=== PATIENT | male | born 1930 | race Caucasian/White ===

== ENCOUNTER 2016-12-28 10:06 | Inpatient (IN) | payer MEDICARE, OTHER ==
[~2016-12-28] VITALS: Ht 160 cm; Wt 63.5 kg
[~2016-12-28 10:06] MED LIST: ACET-915 PO; ALBU8.5H5 IH; CLOP75TA4 PO; DOCU-144 PO; FOLI-49 PO; MAGN400O4 PO; METO50TA16 PO; MIRT30TA PO; MULT1TAB13 PO; NITR0.4T6 SL; PANT20TA2 PO; TIOT18CA IH; VITA1CAP38 PO
[2016-12-28] MEDS ORDERED: SOD CHLORIDE 0.9% 1,000 ML IV STA ×2 (10:07)
[2016-12-28 10:08] VITALS: Ht 160 cm; Wt 63.5 kg
[2016-12-28] MEDS ORDERED: AZTREONAM 1 GM/NS (PMX) 50 ML IVPB ONE (10:30)
[2016-12-28] MEDS ORDERED: VANCOMYCIN 1 GM (PMX) 250 ML IVPB ONE (10:30)
[2016-12-28] MEDS ORDERED: ONDANSETRON 4 MG INJ IV PRN (11:00)
[2016-12-28] MEDS ORDERED: ACETAMINOPHEN 325 MG TAB PO PRN (11:00)
[2016-12-28 11:10] LABS: ADD SCAN DIFF NO
--- NOTE | 2016-12-28 11:18 | RADRPT ---
PROCEDURE: XR Chest. CLINICAL INDICATION: 86-year-old male with possible sepsis. TECHNIQUE: Single frontal view of the chest was obtained. COMPARISON: Right shoulder 08/31/2012. FINDINGS: Monitoring electrodes project across the chest. There is a displaced fracture to the mid diaphysis of the right humerus. The right humerus can be performed for more detailed evaluation if clinically indicated. There are degenerative changes of the AC joints, glenohumeral joints and thoracic spine . The heart, cardiomediastinal silhouette and hilar structures are normal. The pulmonary vasculatur e is normal. There are vascular calcifications in the aortic arch. The lungs are clear. The costop hrenic angles are normal. IMPRESSION: 1. There is a displaced fracture to the mid diaphysis of the right humerus with 90 degrees angulatio n between the fracture fragment and probable nonunion. 2. Atherosclerosis aortic arch. 3. Spondylosis of the thoracic spine. 4. No acute infiltrate is identified. RPTAT:AAJJ Physician Soren Date Time Electronically viewed and signed by Physician Soren on 12/28/2016 11:18 ZENOBIA/
[2016-12-28] MEDS ORDERED: MIRT15TA PO (11:21)
[2016-12-28] MEDS ORDERED: ASCO500C7 PO (11:22)
--- NOTE | 2016-12-28 11:22 | RADRPT ---
PROCEDURE: Right XR Foot. CLINICAL INDICATION: 86-year-old male with right foot 1N. TECHNIQUE: AP lateral and oblique views of the right foot was obtained. The images were reviewed on a PACS workstation. COMPARISON: No. FINDINGS: There spurs off of the dorsal and plantar surface of the right foot. There are flexion contractures of the second third fourth and fifth toes. There is narrowing of the right first metatarsal phalan geal joint space and right first DIP joint space. There is no evidence of gas gangrene. There are sclerotic changes along the proximal articular surface of the navicular bone. IMPRESSION: 1. Osteoarthritis involving the right talonavicular joint with no convincing radiographic evidence of osteomyelitis. 2. Enthesopathy of the Achilles tendon. 3. Plantar spur off of the right os calcaneus. 4. Hammertoe deformities of the right second, third, fourth and fifth digits. RPTAT:AAJJ Physician Soren Date Time Electronically viewed and signed by Physician Soren on 12/28/2016 11:22 ZENOBIA/
[2016-12-28] MEDS ORDERED: CALC-72 PO (11:23)
[2016-12-28] MEDS ORDERED: CRAN400T4 PO (11:24)
[2016-12-28] MEDS ORDERED: NA P135E RC (11:24)
[2016-12-28 11:25] LABS: BASOPHILS % 0.3 % (0.0-2.0); EOSINOPHILS % 0.3 % (0.0-7.0); HEMATOCRIT 33.5 % (42.0-52.0); HEMOGLOBIN 11.3 g/dl (14.0-18.0); LYMPHOCYTES # 2.7 10^3/ul (0.8-2.9); LYMPHOCYTES % 21.8 % (15.0-51.0); MEAN CORPUSCULAR HEMOGLOBIN 29.4 pg (29.0-33.0); MEAN CORPUSCULAR HGB CONC 33.7 g/dl (32.0-37.0); MEAN CORPUSCULAR VOLUME 87.2 fl (82.0-101.0); MEAN PLATELET VOLUME 9.3 fl (7.4-10.4); MONOCYTE # 0.8 10^3/ul (0.3-0.9); MONOCYTES % 6.1 % (0.0-11.0); NEUTROPHIL # 8.7 10^3/ul (1.6-7.5); PLATELET COUNT 211 10^3/UL (140-415); RED BLOOD COUNT 3.84 10^6/ul (4.70-6.10); RED CELL DISTRIBUTION WIDTH 16.2 % (11.5-14.5); WHITE BLOOD COUNT 12.4 10^3/ul (4.8-10.8)
[2016-12-28 11:28] LABS: ALBUMIN 3.9 g/dl (3.3-4.9); ALBUMIN/GLOBULIN RATIO 0.95; BILIRUBIN,INDIRECT 0.2 mg/dl (0-1.1); BILIRUBIN,TOTAL 0.2 mg/dl (0.2-1.3); CALCIUM 9.2 mg/dl (8.4-10.2); CREATININE 0.72 mg/dl (0.61-1.24); INR 1.03; POTASSIUM 4.1 mmol/L (3.5-5.1); PROTIME 13.5 Sec (12.2-14.2); PT RATIO 1.1
[2016-12-28 11:29] LABS: PARTIAL THROMBOPLASTIN TIME 26.3 Sec (25.0-35.0)
[2016-12-28 11:40] LABS: TROPONIN-I 0.02 ng/ml (0.00-0.12)
--- NOTE | 2016-12-28 12:47 | ERA ---
ER Documentation Chief Complaint Date/Time DATE: 12/28/16 TIME: 12:44 Chief Complaint NON-HEALING RLE WOUND HPI Patient is a 86-year-old male who presents with a nonhealing right foot ulcer. The patient was brought in by ambulance. He was sent from [facility]. Please note the history and physical exam is limited due to the patient's mental status. The patient's primary doctor is Dr. Moscoso. ROS All systems reviewed and are negative except as per history of present illness. Medications Home Meds Reported Medications Na Phos,M-B/Na Phos,Di-Ba (ENEMA READY TO USE) 135 Ml Enema, 135 ML RC PRN, ENEMA 12/28/16 Cranberry Fruit (Cranberry) 400 Mg Tablet, 400 MG PO DAILY, TAB 12/28/16 Calcium Carbonate-Vitamin D3 (Calcium 500 + Vit D 200 Caplet) 1 Each Tablet, 1 TAB PO DAILY, TAB 12/28/16 Ascorbic Acid* (Vitamin C*) 500 Mg Capsule.sa, 500 MG PO DAILY, CAP 12/28/16 Mirtazapine* (Remeron*) 15 Mg Tablet, 15 MG PO HS, TAB 12/28/16 Folic Acid* (Folic Acid*) 1 Mg Tablet, 1 MG PO DAILY, TAB 04/25/15 Magnesium Hydroxide* (Milk Of Magnesia*) 400 Mg/5 Ml Oral.susp, 30 ML PO Q24H Y for CONSTIPATION, ML 04/25/15 Multivitamins/Minerals* (Multivitamin w/Minerals*) 1 Tab Tablet, 1 TAB PO DAILY , TAB 04/25/15 Docusate Sodium* (Colace*) 100 Mg Capsule, 100 MG PO DAILY 08/31/12 Discontinued Reported Medications Mirtazapine* (Remeron*) 30 Mg Tablet, 30 MG PO DAILY, TAB 04/25/15 Albuterol Sulfate* (Albuterol Sulfate* HFA) 8.5 Gm Hfa.aer.ad, 2 PUFF IH Q4H Y for WHEEZING AND SOB, EA 04/25/15 Pantoprazole* (Protonix*) 20 Mg Tablet.dr, 20 MG PO DAILY, TAB 04/25/15 Vitamin B Complex* (Vitamin B Complex*) 1 Cap Capsule, 1 CAP PO DAILY, CAP 04/25/15 Tiotropium [place]* (Spiriva*) 18 Mcg Cap.w.dev, 1 INH IH DAILY, EA 04/25/15 Metoprolol Succinate* (Toprol XL*) 50 Mg Tab.er.24h, 50 MG PO DAILY, TAB 04/25/15 Clopidogrel Bisulfate* (Clopidogrel Bisulfate*) 75 Mg Tablet, 75 MG PO DAILY, TAB 04/25/15 Nitroglycerin* (Nitroglycerin* SL) 0.4 Mg Tab.subl, 0.4 MG SL Q5MIN Y for CHEST PAIN, BOTTLE 04/25/15 Acetaminophen* (Tylenol*) 325 Mg Tab, 650 MG PO 6HRS 09/10/11 Allergies Allergies: Coded Allergies: Penicillins (Verified Allergy, Unknown, 04/25/15) codeine (Verified Allergy, Unknown, 04/25/15) PMhx/Soc History of Surgery: Yes Anesthesia Reaction: Yes Hx Neurological Disorder: Yes (CVA, DEMENTIA, ) Hx Respiratory Disorders: Yes (COPD, EMPHYSEMA) Hx Cardiac Disorders: Yes (MULTIPLE STENTS, HTN, ATHEROSCLEROSIS) Hx Psychiatric Problems: Yes (DEPRESSION) Hx Miscellaneous Medical Probl: Yes (CVA,COPD,dementia,CAD,HTN,PUD,anemia) Hx Alcohol Use: No Hx Substance Use: No Hx Tobacco Use: Yes Smoking Status: Unknown if ever smoked FmHx Family History: No diabetes Physical Exam Vitals Vital Signs Date Time Temp Pulse Resp B/P Pulse Ox O2 Delivery O2 Flow Rate FiO2 12/28/16 10:08 95.5 85 18 80/44 92 Physical Exam Const: Chronically ill Head: Atraumatic Eyes: Normal Conjunctiva ENT: Normal External Ears, Nose and Mouth. Neck: Full range of motion..~ No meningismus. Resp: Clear to auscultation bilaterally Cardio: Regular rate and rhythm, no murmurs Abd: Soft, non tender, non distended. Normal bowel sounds Skin: Pale skin, skin breakdown to the medial surface of the right ankle with eschar formation and surrounding cellulitis with erythema Back: No midline or flank tenderness Ext: No cyanosis, or edema Neur: Awake but nonverbal at this time Result Diagram: 12/28/16 1045 12/28/16 1045 Results 24 hrs Laboratory Tests Test 12/28/16 10:45 White Blood Count 12.410^3/ul Red Blood Count 3.8410^6/ul Hemoglobin 11.3g/dl Hematocrit 33.5% Mean Corpuscular Volume 87.2fl Mean Corpuscular Hemoglobin 29.4pg Mean Corpuscular Hemoglobin Concent 33.7g/dl Red Cell Distribution Width 16.2% Platelet Count 37648^3/UL Mean Platelet Volume 9.3fl Neutrophils % 70.0% Lymphocytes % 21.8% Monocytes % 6.1% Eosinophils % 0.3% Basophils % 0.3% Nucleated Red Blood Cells % 0.0/100WBC Neutrophils # 8.710^3/ul Lymphocytes # 2.710^3/ul Monocytes # 0.810^3/ul Eosinophils # 0.010^3/ul Basophils # 0.010^3/ul Nucleated Red Blood Cells # 0.010^3/ul Prothrombin Time 13.5Sec Prothrombin Time Ratio 1.1 INR International Normalized Ratio 1.03 Activated Partial Thromboplast Time 26.3Sec Sodium Level 125mmol/L Potassium Level 4.1mmol/L Chloride Level 95mmol/L Carbon Dioxide Level 26mmol/L Anion Gap 8 Blood Urea Nitrogen 23mg/dl Creatinine 0.72mg/dl Glucose Level 138mg/dl Lactic Acid Level 2.1mmol/L Calcium Level 9.2mg/dl Total Bilirubin 0.2mg/dl Direct Bilirubin 0.00mg/dl Indirect Bilirubin 0.2mg/dl Aspartate Amino Transf (AST/SGOT) 23IU/L Alanine Aminotransferase (ALT/SGPT) 26IU/L Alkaline Phosphatase 91IU/L Troponin I 0.020ng/ml Total Protein 8.0g/dl Albumin 3.9g/dl Globulin 4.10g/dl Albumin/Globulin Ratio 0.95 Current Medications Medications (Trade) Dose Ordered Sig/Tanna Route PRN Reason Start Time Stop Time Status Last Admin Dose Admin Vancomycin HCl 250 ml @ 125 mls/hr ONCE ONCE IVPB 12/28/16 10:30 12/28/16 12:29 DC 12/28/16 12:18 Aztreonam 50 ml @ 100 mls/hr ONCE ONCE IVPB 12/28/16 10:30 12/28/16 10:59 DC 12/28/16 11:38 Sodium Chloride 1,000 ml @ 1,000 mls/hr Q1H STAT IV 12/28/16 10:07 12/28/16 11:06 DC 12/28/16 11:38 Sodium Chloride (NS) 1,000 ml @ 1,000 mls/hr Q1H STAT IV 12/28/16 10:07 12/28/16 11:06 DC 12/28/16 12:20 Ondansetron HCl (Zofran Inj) 4 mg BRIDGE ORDER PRN IV NAUSEA AND/OR VOMITING 12/28/16 11:00 12/29/16 10:59 Acetaminophen (Tylenol Tab) 650 mg ER BRIDGE PRN PO MILD PAIN/FEVER 12/28/16 11:00 12/29/16 10:59 Procedures/MDM PROCEDURE: XR Chest. CLINICAL INDICATION: 86-year-old male with possible sepsis. TECHNIQUE: Single frontal view of the chest was obtained. COMPARISON: Right shoulder 08/31/2012. FINDINGS: Monitoring electrodes project across the chest. There is a displaced fracture to the mid diaphysis of the right humerus. The right humerus can be performed for more detailed evaluation if clinically indicated. There are degenerative changes of the AC joints, glenohumeral joints and thoracic spine. The heart, cardiomediastinal silhouette and hilar structures are normal. The pulmonary vasculature is normal. There are vascular calcifications in the aortic arch. The lungs are clear. The costophrenic angles are normal. IMPRESSION: 1. There is a displaced fracture to the mid diaphysis of the right humerus with 90 degrees angulation between the fracture fragment and probable nonunion. 2. Atherosclerosis aortic arch. 3. Spondylosis of the thoracic spine. 4. No acute infiltrate is identified. RPTAT:AAJJ Physician Soren Date Time Electronically viewed and signed by Emmett Shay Physician on 12/28/2016 11:18 X-ray of the right foot shows no obvious osteomyelitis per radiology. Admit MDM: Patient's infectious symptoms have not stabilized and the patient is at risk of rapid decompensation. The patient will be admitted for careful hydration, antibiotic therapy, and infectious source control. Severe Sepsis criteria: Infectious source: Cellulitis End organ damage indicated by: Lactate greater than 2 Sepsis Management: Time of recognition of sepsis: Upon arrival Within 3 hours of recognition: Blood cultures x 2 before broad-spectrum antibiotics: Yes 30 ml/kg NS bolus Completed Initial lactate 2.1 Repeat lactate pending Time of recognition of septic shock: No septic shock Septic Shock Assessment: Any lactic acid > 4.0 No Persistent hypotension (SBP < 90 or 40 mmHg drop, MAP < 65) despite 30 mL/kg IV fluid bolus No Volume Re-assessment for Septic Shock (post 30 ml/kg bolus): No septic shock at this time Persistent Hypotension Treatment: Comfort care No Central line Not Required Vasopressor started Not required I considered further perfusion assessment with CVP measurement, SCVO2, bedside ultrasound volume assessment, passive leg raise, trial of further fluid bolus. And proceeded with 30 ml/kg fluid bolus of NSS, broad spectrum antibiotics, and admission. Accepting Care Team Current data and ongoing care discussed. Admitting Physician: Dr. Moscoso who asked me to admit the patient Dr. Mckeon and she will discuss with him Legal Transcriptionist(s): None Outstanding Data: Culture results and repeat lactic acid Critical Care: Critical care time 35 minutes excluding all billable procedures Emergent fluid management while maintaining close respiratory support. Provision of immediate and broad-spectrum antibiotic therapy. Simultaneous assessment for possible sources in order to direct targeted therapy. Consideration for invasive and chemical support to prevent cardiopulmonary collapse. Departure Diagnosis: Primary Impression: Severe sepsis Additional Impressions: Cellulitis Qualified Code: L03.115 - Cellulitis of right lower extremity Ulcer Condition: Serious DELANO BENAVIDES MD Dec 28, 2016 12:46
[2016-12-28 15:57] VITALS: BP 166/71; RESP 18
[2016-12-28] MEDS: SOD CHLORIDE 0.9% 1,000 ML IV SCH (16:26)
[2016-12-28 16:29] VITALS: BP 148/62; PULSE 62; RESP 16
[2016-12-28] MEDS ORDERED: VANCOMYCIN IV PER PHARMACY XX SCH (19:30)
[2016-12-28 19:37] VITALS: BP 167/87; RESP 20
[2016-12-28 20:14] VITALS: BP 147/67; PULSE 73; RESP 18
[2016-12-28] MEDS: ASCORBIC ACID 500 MG TAB PO SCH (21:00)
[2016-12-28] MEDS ORDERED: MAGNESIUM HYDROXIDE 30ML CUP PO PRN (21:00)
[2016-12-28] MEDS ORDERED: CRANBERRY FRUIT 400 MG PO SCH (21:00)
[2016-12-28] MEDS: FOLIC ACID 1 MG TAB PO SCH (21:00)
[2016-12-28] MEDS: MULTIVITAMINS/MINERALS TAB PO SCH (21:00)
[2016-12-28] MEDS: DOCUSATE SODIUM 100 MG CAP PO SCH (21:00)
[2016-12-28] MEDS: CALCIUM/VITAMIN D (500/200) TAB PO SCH (21:00)
[2016-12-28] MEDS: MIRTAZAPINE 15 MG TAB PO SCH (21:00)
[2016-12-28] MEDS ORDERED: NA PHOSPHATE/BIPHOS 133 ML ENEMA PR SCH (21:00)
[2016-12-29] MEDS: SOD CHLORIDE 0.9% 1,000 ML IV SCH ×4 (00:31→16:00)
[2016-12-29] MEDS: VANCOMYCIN 500MG/NS (PMX) 100 ML IVPB SCH ×2 (02:09→14:21)
[2016-12-29 06:42] LABS: ADD SCAN DIFF NO
[2016-12-29 06:48] LABS: BASOPHILS % 0.2 % (0.0-2.0); EOSINOPHILS % 0.2 % (0.0-7.0); HEMATOCRIT 28.3 % (42.0-52.0); HEMOGLOBIN 9.3 g/dl (14.0-18.0); LYMPHOCYTES # 1.7 10^3/ul (0.8-2.9); LYMPHOCYTES % 13.2 % (15.0-51.0); MEAN CORPUSCULAR HEMOGLOBIN 28.7 pg (29.0-33.0); MEAN CORPUSCULAR HGB CONC 32.9 g/dl (32.0-37.0); MEAN CORPUSCULAR VOLUME 87.3 fl (82.0-101.0); MONOCYTE # 0.5 10^3/ul (0.3-0.9); MONOCYTES % 3.8 % (0.0-11.0); NEUTROPHIL # 10.3 10^3/ul (1.6-7.5); NEUTROPHILS % 81.3 % (39.0-77.0); PLATELET COUNT 155 10^3/UL (140-415); RED BLOOD COUNT 3.24 10^6/ul (4.70-6.10); RED CELL DISTRIBUTION WIDTH 16.4 % (11.5-14.5); WHITE BLOOD COUNT 12.7 10^3/ul (4.8-10.8)
[2016-12-29 06:58] LABS: INR 1.18; PROTIME 15.1 Sec (12.2-14.2); PT RATIO 1.2
[2016-12-29 06:59] LABS: PARTIAL THROMBOPLASTIN TIME 27.6 Sec (25.0-35.0)
[2016-12-29 07:05] LABS: CHOL/HDL RATIO 4.4 RATIO
[2016-12-29 07:13] LABS: CALCIUM 8.2 mg/dl (8.4-10.2); CREATININE 0.62 mg/dl (0.61-1.24); MAGNESIUM 1.5 mg/dl (1.7-2.5)
[2016-12-29 07:34] LABS: THYROID STIMULATING HORMONE 4.48 MIU/L (0.465-4.680)
[2016-12-29 07:42] VITALS: BP 150/71; RESP 16
[2016-12-29] MEDS: FOLIC ACID 1 MG TAB PO SCH (08:08)
[2016-12-29] MEDS: MULTIVITAMINS/MINERALS TAB PO SCH (08:08)
[2016-12-29] MEDS: DOCUSATE SODIUM 100 MG CAP PO SCH (08:08)
[2016-12-29] MEDS: CALCIUM/VITAMIN D (500/200) TAB PO SCH (08:08)
[2016-12-29] MEDS ORDERED: MAGNESIUM SULFATE 4 GM/100 ML 100 ML IVPB ONE (16:00)
[2016-12-29 19:41] VITALS: BP 154/70; RESP 18
[2016-12-29] MEDS: MIRTAZAPINE 15 MG TAB PO SCH (21:00)
[2016-12-30] MEDS: SOD CHLORIDE 0.9% 1,000 ML IV SCH ×5 (00:19→19:41)
[2016-12-30] MEDS: VANCOMYCIN 500MG/NS (PMX) 100 ML IVPB SCH ×2 (02:23→15:20)
[2016-12-30 03:01] VITALS: BP 134/98; RESP 18
[2016-12-30 07:19] LABS: ADD SCAN DIFF NO
[2016-12-30 07:22] LABS: BASOPHILS % 0.3 % (0.0-2.0); EOSINOPHILS % 0.4 % (0.0-7.0); HEMOGLOBIN 9.7 g/dl (14.0-18.0); LYMPHOCYTES # 1.6 10^3/ul (0.8-2.9); LYMPHOCYTES % 21.6 % (15.0-51.0); MEAN CORPUSCULAR HEMOGLOBIN 29.2 pg (29.0-33.0); MEAN CORPUSCULAR HGB CONC 32.3 g/dl (32.0-37.0); MEAN CORPUSCULAR VOLUME 90.4 fl (82.0-101.0); MONOCYTE # 0.5 10^3/ul (0.3-0.9); MONOCYTES % 6.9 % (0.0-11.0); NEUTROPHIL # 5.3 10^3/ul (1.6-7.5); NEUTROPHILS % 69.6 % (39.0-77.0); PLATELET COUNT 150 10^3/UL (140-415); RED BLOOD COUNT 3.32 10^6/ul (4.70-6.10); WHITE BLOOD COUNT 7.6 10^3/ul (4.8-10.8)
[2016-12-30 07:46] LABS: CALCIUM 7.7 mg/dl (8.4-10.2); CREATININE 0.62 mg/dl (0.61-1.24); POTASSIUM 4.1 mmol/L (3.5-5.1)
[2016-12-30 08:03] VITALS: BP 132/79; RESP 20
[2016-12-30] MEDS: DOCUSATE SODIUM 100 MG CAP PO SCH (08:51)
[2016-12-30] MEDS: ASCORBIC ACID 500 MG TAB PO SCH (08:52)
[2016-12-30] MEDS: MULTIVITAMINS/MINERALS TAB PO SCH (08:52)
[2016-12-30] MEDS: FOLIC ACID 1 MG TAB PO SCH (08:52)
[2016-12-30] MEDS: CALCIUM/VITAMIN D (500/200) TAB PO SCH (08:52)
[2016-12-30 08:53] LABS: ADD UMIC YES; UR ASCORBIC ACID NEGATIVE (NEGATIVE); UR BACTERIA FEW /HPF (NONE SEEN); UR BILIRUBIN (Dip) NEGATIVE (NEGATIVE); UR BLOOD (Dip) 2+ mg/dL (NEGATIVE); UR CLARITY SLIGHTLY CLOUDY (CLEAR); UR COLOR YELLOW (YELLOW); UR GLUCOSE (Dip) NEGATIVE (NEGATIVE); UR KETONES (Dip) TRACE mg/dL (NEGATIVE); UR LEUKOCYTE ESTERASE (Dip) 1+ Leu/ul (NEGATIVE); UR NITRITE (Dip) NEGATIVE (NEGATIVE); UR RBC 10 /HPF (0-5); UR SPECIFIC GRAVITY (Dip) 1.011 (1.003-1.030); UR TOTAL PROTEIN (Dip) NEGATIVE (NEGATIVE); UR UROBILINOGEN (Dip) NEGATIVE (NEGATIVE)
[2016-12-30 14:09] VITALS: BP 169/70; RESP 18
[2016-12-30 20:30] VITALS: BP 141/62; RESP 20
[2016-12-30] MEDS: MIRTAZAPINE 15 MG TAB PO SCH (20:40)
[2016-12-31] MEDS: VANCOMYCIN 500MG/NS (PMX) 100 ML IVPB SCH ×2 (01:38→13:52)
[2016-12-31 02:00] VITALS: BP 158/72; RESP 20
[2016-12-31 06:09] LABS: ADD SCAN DIFF NO
[2016-12-31 06:51] LABS: CALCIUM 8.7 mg/dl (8.4-10.2); CREATININE 0.64 mg/dl (0.61-1.24); MAGNESIUM 1.7 mg/dl (1.7-2.5); POTASSIUM 4.7 mmol/L (3.5-5.1)
[2016-12-31 07:52] VITALS: BP 161/78; RESP 18
[2016-12-31] MEDS: SOD CHLORIDE 0.9% 1,000 ML IV SCH ×3 (08:00→10:15)
[2016-12-31] MEDS: ASCORBIC ACID 500 MG TAB PO SCH (09:00)
[2016-12-31] MEDS: CALCIUM/VITAMIN D (500/200) TAB PO SCH (09:00)
[2016-12-31] MEDS: DOCUSATE SODIUM 100 MG CAP PO SCH (09:00)
[2016-12-31] MEDS: FOLIC ACID 1 MG TAB PO SCH (09:00)
[2016-12-31] MEDS: MULTIVITAMINS/MINERALS TAB PO SCH (09:00)
[2016-12-31 09:04] LABS: BASOPHILS % 0.5 % (0.0-2.0); EOSINOPHILS % 0.5 % (0.0-7.0); HEMATOCRIT 33.6 % (42.0-52.0); HEMOGLOBIN 10.8 g/dl (14.0-18.0); LYMPHOCYTES % 24.8 % (15.0-51.0); MEAN CORPUSCULAR HEMOGLOBIN 28.8 pg (29.0-33.0); MEAN CORPUSCULAR HGB CONC 32.1 g/dl (32.0-37.0); MEAN CORPUSCULAR VOLUME 89.6 fl (82.0-101.0); MONOCYTE # 0.5 10^3/ul (0.3-0.9); MONOCYTES % 6.2 % (0.0-11.0); NEUTROPHIL # 5.4 10^3/ul (1.6-7.5); NEUTROPHILS % 66.8 % (39.0-77.0); PLATELET COUNT 181 10^3/UL (140-415); RED BLOOD COUNT 3.75 10^6/ul (4.70-6.10); RED CELL DISTRIBUTION WIDTH 15.9 % (11.5-14.5); WHITE BLOOD COUNT 8.1 10^3/ul (4.8-10.8)
[2016-12-31] MEDS ORDERED: CEFTRIAXONE 1 GM/50 ML (PMX) 50 ML IVPB SCH (15:00)
[2016-12-31 15:09] VITALS: BP 137/73; RESP 18
[2016-12-31] MEDS: DEXTROSE 5%-0.45% NACL 1,000 ML IV SCH (16:16)
[2016-12-31] MEDS: ENOXAPARIN 30 MG/0.3 ML SYG SC SCH (16:23)
[2016-12-31 19:30] VITALS: BP 144/67; RESP 18
[2016-12-31] MEDS: MIRTAZAPINE 15 MG TAB PO SCH (20:18)
[2017-01-01] VITALS: BP 108/67; RESP 18
[2017-01-01] MEDS: VANCOMYCIN 500MG/NS (PMX) 100 ML IVPB SCH ×2 (01:54→14:34)
[2017-01-01 02:00] VITALS: BP 132/74; RESP 18
[2017-01-01] MEDS: DEXTROSE 5%-0.45% NACL 1,000 ML IV SCH ×2 (06:09→22:27)
[2017-01-01 08:28] VITALS: BP 143/75; RESP 18
[2017-01-01] MEDS: DOCUSATE SODIUM 100 MG CAP PO SCH (09:00)
[2017-01-01] MEDS: ENOXAPARIN 30 MG/0.3 ML SYG SC SCH ×2 (09:00→09:41)
[2017-01-01] MEDS: FOLIC ACID 1 MG TAB PO SCH (09:00)
[2017-01-01] MEDS: MULTIVITAMINS/MINERALS TAB PO SCH (09:00)
[2017-01-01] MEDS: ASCORBIC ACID 500 MG TAB PO SCH (09:00)
[2017-01-01] MEDS: CALCIUM/VITAMIN D (500/200) TAB PO SCH (09:00)
[2017-01-01] MEDS ORDERED: ERTAPENEM SODIUM 0.5 GM in SOD CHLORIDE 0.9% 100 ML IVPB SCH (12:30)
--- NOTE | 2017-01-01 15:59 | CONS ---
Date/Time of Note Date/Time of Note DATE: 01/01/17 TIME: 15:55 Assessment/Plan Assessment/Plan Chief Complaint/Hosp Course Peripheral vascular disease Problems: Additional Assessment/Plan Patient is nonambulatory at this time and contracted We will check lower extremity Dopplers to evaluate circulation to the feet Will need amputation Discussed with the referring physicians Consultation Date/Type/Reason Admit Date/Time Dec 28, 2016 at 10:36 Date of Consultation: Jan 01, 2017 Reason for Consultation Peripheral vascular disease Hx of Present Illness Patient is a 86-year-old male who presents with a nonhealing right foot ulcer. Patient is nonambulatory and contracted Foot ulcers appear to be chronic Respiratory: no complaints Cardiovascular: no complaints Gastrointestinal: no complaints Genitourinary: no complaints Musculoskeletal: no complaints Skin: no complaints Past Surgical History Past Surgical Hx: no surgical history Social History Alcohol Use: none Smoking Status: Former smoker Exam/Review of Systems Vital Signs Vitals Vital Signs Date Time Temp Pulse Resp B/P Pulse Ox O2 Delivery O2 Flow Rate FiO2 01/01/17 08:28 98.4 75 18 143/75 98 12/31/16 20:00 Nasal Cannula 2.0 Intake and Output 12/31/16 12/31/16 01/01/17 15:00 23:00 07:00 Intake Total 600 ml 260 ml 890 ml Balance 600 ml 260 ml 890 ml Exam ENMT: nl external ears & nose, nl lips & teeth, nl nasal mucosa & septum Neck: non-tender, supple Respiratory: clear to auscultation, normal air movement Cardiovascular: nl pulses, regular rate and rhythm Gastrointestinal: nl liver, spleen, non-tender, soft Additional Comments Bilateral foot ulcers worse on the right than the left There is palpable femoral and popliteal pulses pedal pulses are not palpable Results Result Diagram: 12/31/1651812/31/16 0515 Medications Medications Current Medications Ascorbic Acid (Vitamin C) 500 mg DAILY PO ; Start 12/28/16 at 21:00 Calcium/Vitamin D (Oyster Shell/ Vit-D (500/200)) 1 tab DAILY PO ; Start at 21:00 Docusate Sodium (Colace) 100 mg DAILY PO ; Start 12/28/16 at 21:00 Folic Acid (Folic Acid) 1 mg DAILY PO ; Start 12/28/16 at 21:00 Magnesium Hydroxide (Milk Of Mag) 30 ml Q24H PRN PO CONSTIPATION; Start at 21:00 Mirtazapine (Remeron) 15 mg HS PO ; Start 12/28/16 at 21:00 Multivitamins/ Minerals (Theragran-M) 1 tab DAILY PO ; Start 12/28/16 at 21:00 Sodium Biphosphate/ Sodium Phosphate 135 ml 135 ml PRN AK ; Start 12/28/16 at 21 :00 Vancomycin HCl 100 ml @ 100 mls/hr Q12H IVPB Last administered on 01/01/17 14 :34; Admin Dose 100 MLS/HR; Start 12/29/16 at 02:00 Dextrose/Sodium Chloride (D5-1/2ns) 1,000 ml @ 70 mls/hr [id number] IV Last administered on 01/01/17 06:09; Admin Dose 70 MLS/HR; Start 12/31/16 at 15:00 Enoxaparin Sodium 30 mg 30 mg DAILY SC Last administered on 01/01/17 09:41; Admin Dose 30 MG; Start 12/31/16 at 15:30 Ertapenem/Sodium Chloride (Invanz/NS) 100 ml @ 200 mls/hr Q24H IVPB ; Start at 09:00 Miscellaneous Information (*Rx Drug Level Order Reminder*) VANCOMYCIN TROUGH AT 0100 ONCE ONCE XX ; Start 01/02/17 at 01:00; Stop 01/02/17 at 01:01 AMIRAH GALVEZ MD Jan 01, 2017 15:59
[2017-01-01 16:32] VITALS: BP 129/74; RESP 18
[2017-01-01 19:12] VITALS: BP 148/73; RESP 18
[2017-01-01] MEDS: MIRTAZAPINE 15 MG TAB PO SCH (21:00)
[2017-01-02 02:01] VITALS: BP 132/80; RESP 20
[2017-01-02] MEDS: VANCOMYCIN 500MG/NS (PMX) 100 ML IVPB SCH ×2 (02:28→15:30)
[2017-01-02 07:24] LABS: ADD SCAN DIFF NO
[2017-01-02 07:32] LABS: BASOPHILS % 0.5 % (0.0-2.0); EOSINOPHILS % 0.2 % (0.0-7.0); HEMATOCRIT 33.1 % (42.0-52.0); HEMOGLOBIN 10.9 g/dl (14.0-18.0); LYMPHOCYTES % 23.3 % (15.0-51.0); MEAN CORPUSCULAR HEMOGLOBIN 28.5 pg (29.0-33.0); MEAN CORPUSCULAR HGB CONC 32.9 g/dl (32.0-37.0); MEAN CORPUSCULAR VOLUME 86.6 fl (82.0-101.0); MEAN PLATELET VOLUME 8.9 fl (7.4-10.4); MONOCYTE # 0.7 10^3/ul (0.3-0.9); NEUTROPHIL # 5.6 10^3/ul (1.6-7.5); NEUTROPHILS % 66.9 % (39.0-77.0); PLATELET COUNT 179 10^3/UL (140-415); RED BLOOD COUNT 3.82 10^6/ul (4.70-6.10); RED CELL DISTRIBUTION WIDTH 15.8 % (11.5-14.5); WHITE BLOOD COUNT 8.4 10^3/ul (4.8-10.8)
[2017-01-02 07:49] VITALS: BP 155/76; RESP 18
[2017-01-02 07:49] LABS: CALCIUM 8.2 mg/dl (8.4-10.2); CREATININE 0.52 mg/dl (0.61-1.24); MAGNESIUM 1.4 mg/dl (1.7-2.5); POTASSIUM 3.3 mmol/L (3.5-5.1)
[2017-01-02] MEDS: ASCORBIC ACID 500 MG TAB PO SCH (09:00)
[2017-01-02] MEDS: ERTAPENEM SODIUM 1 GM in SOD CHLORIDE 0.9% 100 ML IVPB SCH (09:00)
[2017-01-02] MEDS: DOCUSATE SODIUM 100 MG CAP PO SCH (09:00)
[2017-01-02] MEDS: FOLIC ACID 1 MG TAB PO SCH (09:00)
[2017-01-02] MEDS: CALCIUM/VITAMIN D (500/200) TAB PO SCH (09:00)
[2017-01-02] MEDS: MULTIVITAMINS/MINERALS TAB PO SCH (09:00)
[2017-01-02 14:32] VITALS: BP 148/69; RESP 18
--- NOTE | 2017-01-02 14:53 | PN ---
Date/Time of Note Date/Time of Note DATE: 01/02/17 TIME: 14:51 Assessment/Plan Lines/Catheters IV Catheter Type (from Nrsg): Peripheral IV Arnett in Place (from Nrsg): No Assessment/Plan Chief Complaint/Hosp Course Assessment/Plan Chief Complaint/Hosp Course Peripheral vascular disease Problems: Additional Assessment/Plan Patient is nonambulatory at this time and contracted Awaiting lower extremity Dopplers to evaluate circulation to the feet Will need amputation Discussed with the referring physicians Problems: Subjective 24 Hr Interval Summary Constitutional: improved Pain Control: mild Exam/Review of Systems Vital Signs Vitals Vital Signs Date Time Temp Pulse Resp B/P Pulse Ox O2 Delivery O2 Flow Rate FiO2 01/02/17 14:32 98.8 73 18 148/69 99 01/02/17 08:00 Nasal Cannula 2.0 Intake and Output 01/01/17 01/01/17 01/02/17 15:00 23:00 07:00 Intake Total 100 ml 1100 ml 100 ml Balance 100 ml 1100 ml 100 ml Exam ENMT: mucosa pink and moist, nl external ears & nose, nl lips & teeth, nl nasal mucosa & septum Neck: non-tender, supple Respiratory: clear to auscultation, normal air movement Gastrointestinal: nl liver, spleen, non-tender, soft Results Result Diagram: 01/02/1702 01/02/17601 AMRIAH GALVEZ MD Jan 02, 2017 14:53
[2017-01-02] MEDS ORDERED: MAGNESIUM SULFATE 4 GM/100 ML 100 ML IVPB ONE (17:00)
[2017-01-02] MEDS: POTASSIUM CHLORIDE 40 MEQ in DEXTROSE 5%-0.45% NACL 1,000 ML IV SCH (17:32)
[2017-01-02 20:00] VITALS: BP 129/73; RESP 18
[2017-01-02] MEDS: MIRTAZAPINE 15 MG TAB PO SCH (21:00)
[2017-01-03 02:00] VITALS: BP 155/63; RESP 19
[2017-01-03] MEDS: VANCOMYCIN 500MG/NS (PMX) 100 ML IVPB SCH ×2 (02:55→20:58)
--- NOTE | 2017-01-03 03:59 | HP ---
DATE OF ADMISSION: 12/28/2016 HISTORY OF PRESENT ILLNESS: The patient is an 86-year-old gentleman, who has been transferred from [facility] to the emergency room for evaluation of a nonhealing right foot ulcer from where he was admitted. The patient is being [facility] Apparently the wounds have not been healing and patient has been declining recently. The patient is unable to provide any current history at this time. The patient's history was reviewed with Dr. Palacios and the patient was examined. The patient has had several strokes in the past and history of right hemiparesis. He was last hospitalized in July, to [facility] for sepsis and urinary tract infection. He is being followed by Dr. Romo from a vascular standpoint. 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 Per his prior directive, he is on full code status. REVIEW OF SYSTEMS: Unable to obtain from the patient at this time. The patient has been a heavy smoker, history of coronary artery disease, status post multiple stents placed, prior history of stroke with right hemiparesis, patient is essentially bedbound, has chronic obstructive pulmonary disease and also peptic ulcer disease, history of abdominal aortic aneurysm, dyslipidemia, hypertension, dementia. ALLERGIES: CODEINE AND PENICILLIN. MEDICATIONS: Include calcium supplements, ascorbic acid, Remeron, folic acid. Patient had previously been on clopidogrel and metoprolol, which has been discontinued. Nexium 40 mg p.o. q.daily. PHYSICAL EXAMINATION: GENERAL: The patient is an average built male who appears pale. VITAL SIGNS: Temperature 95.5, initially it was 97.8, blood pressure 166/71, pulse oximetry 95 percent on room air. HEENT: Head normocephalic. Mild pallor with cyanosis. Tongue is coated dry. NECK: Supple. No thyromegaly, bruits, or lymphadenopathy. CHEST: A few wheezes heard at the bases, decreased breath sounds. HEART: S1, S2 with no murmurs or gallops. ABDOMEN: Soft, nontender, no hepatosplenomegaly. EXTREMITIES: Moderate contractures, right hemiparesis is evident. Necrotic ulcers noted over the right heel, right foot anterior aspect with some drainage. Sacral coccygeal erythema evident. RECTAL: Deferred due to the patient's discomfort. LABORATORY DATA: Initial WBC 12.4, hematocrit 32.5, platelet count 211,000. Sodium 125, potassium 4.1, BUN 23, creatinine 0.72, albumin 3.9, lactic acid 2.1. IMPRESSION: 1. Right foot cellulitis with necrotic ulcers. 2. Peripheral artery disease. 3. History of abdominal aortic aneurysm. 4. Chronic obstructive pulmonary disease. 5. Coronary artery disease, status post prior 2 stents. 6. Underlying dementia. 7. Status post severe right hemiparesis, status post multiple strokes prior. 8. Displaced fracture right humerus, chronic. 9. Concern regarding patient's aspiration. PLAN: Will get speech evaluation, keep patient n.p.o., antibiotic therapy after wound cultures with vancomycin and Zosyn, observe for sepsis. Will request Dr. Goel for vascular evaluation. Dictated By: Santo Mckeon MD /[email or web address]/[email or web address] /Document#: [id number] ROGER
[2017-01-03 05:20] LABS: ADD SCAN DIFF NO
[2017-01-03 05:28] LABS: BASOPHILS % 0.4 % (0.0-2.0); EOSINOPHILS % 0.5 % (0.0-7.0); HEMATOCRIT 30.7 % (42.0-52.0); HEMOGLOBIN 10.4 g/dl (14.0-18.0); LYMPHOCYTES # 1.7 10^3/ul (0.8-2.9); LYMPHOCYTES % 21.3 % (15.0-51.0); MEAN CORPUSCULAR HEMOGLOBIN 29.5 pg (29.0-33.0); MEAN CORPUSCULAR HGB CONC 33.9 g/dl (32.0-37.0); MEAN PLATELET VOLUME 8.7 fl (7.4-10.4); MONOCYTE # 0.7 10^3/ul (0.3-0.9); MONOCYTES % 8.5 % (0.0-11.0); NEUTROPHIL # 5.4 10^3/ul (1.6-7.5); NEUTROPHILS % 67.9 % (39.0-77.0); PLATELET COUNT 175 10^3/UL (140-415); RED BLOOD COUNT 3.53 10^6/ul (4.70-6.10); RED CELL DISTRIBUTION WIDTH 15.9 % (11.5-14.5)
[2017-01-03 06:03] LABS: CALCIUM 7.7 mg/dl (8.4-10.2); CREATININE 0.53 mg/dl (0.61-1.24); MAGNESIUM 2.4 mg/dl (1.7-2.5); POTASSIUM 3.3 mmol/L (3.5-5.1)
[2017-01-03 07:27] VITALS: BP 158/75; RESP 18
[2017-01-03] MEDS: POTASSIUM CHLORIDE 40 MEQ in DEXTROSE 5%-0.45% NACL 1,000 ML IV SCH (07:35)
[2017-01-03] MEDS: ASCORBIC ACID 500 MG TAB PO SCH (09:00)
[2017-01-03] MEDS: DOCUSATE SODIUM 100 MG CAP PO SCH (09:00)
[2017-01-03] MEDS: CALCIUM/VITAMIN D (500/200) TAB PO SCH (09:00)
[2017-01-03] MEDS: FOLIC ACID 1 MG TAB PO SCH (09:00)
[2017-01-03] MEDS: MULTIVITAMINS/MINERALS TAB PO SCH (09:00)
[2017-01-03] MEDS: ERTAPENEM SODIUM 1 GM in SOD CHLORIDE 0.9% 100 ML IVPB SCH (09:17)
[2017-01-03] MEDS: ENOXAPARIN 30 MG/0.3 ML SYG SC SCH (09:39)
--- NOTE | 2017-01-03 13:52 | PN ---
Date/Time of Note Date/Time of Note DATE: 01/03/17 TIME: 13:51 Assessment/Plan Lines/Catheters IV Catheter Type (from Nrsg): Peripheral IV Arnett in Place (from Nrsg): No Assessment/Plan Chief Complaint/Hosp Course Assessment/Plan Chief Complaint/Hosp Course Peripheral vascular disease Problems: Additional Assessment/Plan Patient is nonambulatory at this time and contracted Awaiting lower extremity Dopplers to evaluate circulation to the feet, ordered again Will need amputation Discussed with the referring physicians Problems: Subjective 24 Hr Interval Summary Constitutional: improved Pain Control: mild Exam/Review of Systems Vital Signs Vitals Vital Signs Date Time Temp Pulse Resp B/P Pulse Ox O2 Delivery O2 Flow Rate FiO2 01/03/17 08:37 Nasal Cannula 2.0 01/03/17 07:27 97.7 72 18 158/75 100 Intake and Output 01/02/17 01/02/17 01/03/17 15:00 23:00 07:00 Intake Total 100 ml 1100 ml 600 ml Balance 100 ml 1100 ml 600 ml Exam ENMT: mucosa pink and moist, nl external ears & nose, nl lips & teeth, nl nasal mucosa & septum Neck: non-tender, supple Respiratory: clear to auscultation, normal air movement Cardiovascular: nl pulses, regular rate and rhythm Results Result Diagram: 01/03/17 0444 01/03/17 0444 AMIRAH GALVEZ MD Jan 03, 2017 13:51
[2017-01-03] MEDS: D5W-0.45 NACL + KCL 40 MEQ 1,000 ML IV SCH ×2 (14:00→22:00)
[2017-01-03] MEDS ORDERED: LIDOCAINE 1% (MPF) 5 ML VIAL SC ONE ×2 (14:00→16:00)
[2017-01-03 14:35] VITALS: BP 125/68; RESP 18
[2017-01-03] MEDS ORDERED: SOD CHLORIDE 0.9% 100 ML ONE (16:35)
--- NOTE | 2017-01-03 19:02 | RADRPT ---
PROCEDURE: XR Chest. CLINICAL INDICATION: PICC line placement. TECHNIQUE: Single frontal chest x-ray. COMPARISON: 12/28/2016 FINDINGS: There is new left PICC line with tip in the SVC. Heart is normal size. Aorta is mildly prominent.. There is no congestive heart failure.. No focal infiltrate is seen. There is no pleural effusion. There is no pneumothorax. Bones are unchanged including a lytic lesion with a fracture through th e proximal right humeral diaphysis.. IMPRESSION: Left PICC line with tip in the SVC. Otherwise no change. Findings reported to [facility] on 01/03/2017 6:59:55 PM. RPTAT: HMVK .Buddy Bermeo MD, MD Date Time Electronically viewed and signed by .Buddy Bermeo MD, on 01/03/2017 19:01 .K/
[2017-01-03] MEDS: MIRTAZAPINE 15 MG TAB PO SCH (20:58)
--- NOTE | 2017-01-03 23:05 | RADRPT ---
PROCEDURE: Ultrasound guidance for placement of needle in left upper extremity vein. CLINICAL INDICATION: Venous access. TECHNIQUE: Limited sonography of the left upper extremity was performed. Ultrasound images were recorded and s tored in the patient's medical record. COMPARISON: None. FINDINGS: The ultrasound images demonstrate a patent left upper extremity vein. The PICC line was inserted by the PICC line nurse. IMPRESSION: 1. Ultrasound guidance for a needle placement in a left upper extremity vein. 2. The left upper extremity vein is patent. RPTAT: QQ .Dae Agustin MD, MD Date Time Electronically viewed and signed by .Dae Agustin MD, MD on 01/03/2017 23:05 .R/
--- NOTE | 2017-01-03 23:24 | RADRPT ---
PROCEDURE: US bilateral lower extremity arteries. CLINICAL INDICATION: Bilateral leg pain. Claudication that interferes significantly with the sara ent's lifestyle. Lower extremity ulcers. TECHNIQUE: Multiple longitudinal and transverse images of the bilateral lower extremity arteries w ere obtained with wall scale, pulsed Doppler, and color Doppler imaging. COMPARISON: No prior studies are available for comparison. FINDINGS: Right HR BUSINESS PARTNER CONSULTANT:20 cm/sec PSFA:63 cm/sec MSFA:40 cm/sec DSFA:55 cm/sec POP:26 cm/sec WINDOWS VMWARE ADMINISTRATOR:17 cm/sec DPA:9 cm/sec Left HR BUSINESS PARTNER CONSULTANT:87 cm/sec PSFA:50 cm/sec MSFA:53 cm/sec DSFA:23 cm/sec POP:51 cm/sec WINDOWS VMWARE ADMINISTRATOR:12 cm/sec DPA:11 cm/sec The right ankle-brachial index is 0.64 and the left ankle-brachial index is 0.7. There is abnormal monophasic flow throughout the visualized vessels bilaterally consistent with aort o iliac disease. Markedly dampened flow is present in the calf arteries bilaterally and in the righ t popliteal artery. IMPRESSION: 1. Grossly abnormal study bilaterally consistent with aorto iliac disease. There may also be signi ficant stenosis bilaterally in the popliteal and calf arteries. RPTAT: QQ .Dae Agustin MD, MD Date Time Electronically viewed and signed by .Dae Agustin MD, on 01/03/2017 23:24 .R/
[2017-01-04] MEDS: D5W-0.45 NACL + KCL 40 MEQ 1,000 ML IV SCH ×3 (01:12→21:02)
[2017-01-04 02:00] VITALS: BP 133/69; RESP 18
[2017-01-04 05:36] LABS: ADD SCAN DIFF NO
[2017-01-04 05:44] LABS: BASOPHILS % 0.3 % (0.0-2.0); EOSINOPHILS % 0.3 % (0.0-7.0); HEMATOCRIT 28.1 % (42.0-52.0); HEMOGLOBIN 9.1 g/dl (14.0-18.0); LYMPHOCYTES # 1.1 10^3/ul (0.8-2.9); LYMPHOCYTES % 18.8 % (15.0-51.0); MEAN CORPUSCULAR HEMOGLOBIN 28.3 pg (29.0-33.0); MEAN CORPUSCULAR HGB CONC 32.4 g/dl (32.0-37.0); MEAN CORPUSCULAR VOLUME 87.5 fl (82.0-101.0); MEAN PLATELET VOLUME 8.8 fl (7.4-10.4); MONOCYTE # 0.4 10^3/ul (0.3-0.9); MONOCYTES % 6.7 % (0.0-11.0); NEUTROPHIL # 4.2 10^3/ul (1.6-7.5); NEUTROPHILS % 72.7 % (39.0-77.0); PLATELET COUNT 170 10^3/UL (140-415); RED BLOOD COUNT 3.21 10^6/ul (4.70-6.10); RED CELL DISTRIBUTION WIDTH 16.1 % (11.5-14.5); WHITE BLOOD COUNT 5.8 10^3/ul (4.8-10.8)
[2017-01-04 06:14] LABS: CREATININE 0.5 mg/dl (0.61-1.24); POTASSIUM 3.9 mmol/L (3.5-5.1)
[2017-01-04 07:38] VITALS: BP 142/65; RESP 22
[2017-01-04] MEDS: VANCOMYCIN 500MG/NS (PMX) 100 ML IVPB SCH ×2 (08:49→21:02)
[2017-01-04] MEDS: ENOXAPARIN 30 MG/0.3 ML SYG SC SCH (08:57)
[2017-01-04] MEDS ORDERED: ALBUTEROL 0.083% (NEB) 2.5 MG/3 ML AMP HHN PRN (09:30)
[2017-01-04] MEDS: ERTAPENEM SODIUM 1 GM in SOD CHLORIDE 0.9% 100 ML IVPB SCH (10:40)
--- NOTE | 2017-01-04 10:55 | RADRPT ---
PROCEDURE: XR Chest. CLINICAL INDICATION: ng tube placement TECHNIQUE: Single frontal chest x-ray. COMPARISON: 01/03/1970 FINDINGS: There has been placement of a nasogastric tube with tip cardia of the stomach below the left diaphra gm. Left arm PICC line is in place unchanged. The lungs are clear of infiltrates, edema, or effusi ons. .. The cardiomediastinal silhouette is unremarkable. 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 IMPRESSION: No acute cardiopulmonary disease. Nasogastric tube with tip at the cardia of the stomach. Left arm PICC line in place. Chronic angulated fracture of the right humeral shaft. RPTAT: AA .Roosevelt August MD, Date Time Electronically viewed and signed by .Roosevelt August MD, on 01/04/2017 10:55 .L/
[2017-01-04] MEDS: DOCUSATE SODIUM 100 MG CAP PO SCH (12:26)
[2017-01-04] MEDS: ASCORBIC ACID 500 MG TAB PO SCH (12:27)
[2017-01-04] MEDS: MULTIVITAMINS/MINERALS TAB PO SCH (12:27)
[2017-01-04] MEDS: FOLIC ACID 1 MG TAB PO SCH (12:27)
[2017-01-04] MEDS: CALCIUM/VITAMIN D (500/200) TAB PO SCH (12:27)
[2017-01-04 14:01] VITALS: BP 109/66; RESP 22
--- NOTE | 2017-01-04 18:24 | PN ---
Date/Time of Note Date/Time of Note DATE: 01/04/17 TIME: 18:22 Assessment/Plan Lines/Catheters IV Catheter Type (from Nrsg): PICC Line Arnett in Place (from Nrsg): No Assessment/Plan Chief Complaint/Hosp Course Assessment/Plan Chief Complaint/Hosp Course Peripheral vascular disease Problems: Additional Assessment/Plan Patient is nonambulatory at this time and contracted Patient has abnormal arterial studies indicative of possible aortobiiliac disease patient will need an amputation however the level of the amputation has to be ascertained after CT angiogram is done Discussed with the referring physicians Problems: Subjective 24 Hr Interval Summary Constitutional: improved Pain Control: mild Exam/Review of Systems Vital Signs Vitals Vital Signs Date Time Temp Pulse Resp B/P Pulse Ox O2 Delivery O2 Flow Rate FiO2 01/04/17 16:51 2.0 01/04/17 14:01 98.8 68 22 109/66 96 01/04/17 10:00 Nasal Cannula Intake and Output 01/03/17 01/03/17 01/04/17 15:00 23:00 07:00 Intake Total 600 ml 200 ml 625 ml Balance 600 ml 200 ml 625 ml Exam ENMT: mucosa pink and moist, nl external ears & nose, nl lips & teeth, nl nasal mucosa & septum Neck: non-tender, supple Respiratory: clear to auscultation, normal air movement Cardiovascular: nl pulses, regular rate and rhythm Gastrointestinal: nl liver, spleen, non-tender, soft Results Result Diagram: 01/04/17 0513 01/04/17 0513 AMIRAH GALVEZ MD Jan 04, 2017 18:23
[2017-01-04 19:54] VITALS: BP 98/65; RESP 20
[2017-01-04] MEDS ORDERED: SOD CHLORIDE 0.9% 100 ML ONE (20:12)
[2017-01-04] MEDS ORDERED: IOHEXOL 100 ML ONE (20:12)
[2017-01-04] MEDS ORDERED: IOHEXOL 350MG/ML 50 ML BTL ONE (20:12)
[2017-01-04] MEDS: MIRTAZAPINE 15 MG TAB PO SCH (20:55)
[2017-01-05] VITALS (10 sets, daily range): BP systolic 101–149; BP diastolic 59–89; PULSE 72–85; RESP 16–20
--- NOTE | 2017-01-05 00:41 | RADRPT ---
PROCEDURE: CT abdominal aortogram and bilateral iliofemoral runoff. CLINICAL INDICATION: Claudication. TECHNIQUE: A CT angiogram of the aorta and bilateral iliofemoral runoff was performed utilizing hi gh-resolution axial imaging after the uneventful intravenous administration of 125 of Omnipaque 350. Delayed high-resolution axial images were performed through the distal lower extremities and feet. 3-D reformats were made. Sagittal and coronal reformatted images were made. The CTDIvol is 8.1 m Gy and the DLP is 1081 mGycm. COMPARISON: None. FINDINGS: There is aneurysmal dilatation of the infrarenal abdominal aorta measuring up to 4.5 cm in greatest axial dimension. Extensive noncalcified plaque is noted within the aneurysm sac. There is moderate narrowing at the origin of the right common iliac artery. There is ectasia along with moderate to marked narrowing of the right internal iliac artery is noted. The left internal il iac artery is occluded. Bilateral external iliac arteries are patent with some areas of mild narrowing on the right. Extensi ve atherosclerotic plaque and calcifications are noted throughout the arterial structures. In the left lower extremity, there is moderate to marked narrowing of the proximal superficial femor al artery. The superficial femoral artery is occluded distally as it exits the adductor hiatus. The popliteal artery and other arteries of the calf are without visible flow. The deep femoral artery i s patent. In the right lower extremity, there is moderate to marked narrowing of the proximal superficial femo ral artery and occlusion of the superficial femoral artery as it exits the adductor hiatus. No visib le vascular flow is seen within the popliteal artery or anterior tibial artery. Some minimal recons titution of flow is seen within the fibular and posterior tibial arteries at the level of the midcal f. The deep femoral artery is patent. Visualized chest, there is mild cardiomegaly with coronary artery calcifications. There is mild ate lectasis within the lung bases. The liver, spleen, pancreas, gallbladder and adrenal glands are unremarkable. Tiny bilateral hypoat tenuating renal lesions are noted, likely cysts. The kidneys are otherwise unremarkable. There is no evidence of bowel obstruction. Diverticula are noted throughout the colon without evide nce of diverticulitis. The appendix is normal. There is no intra-abdominal free air or free fluid. No intra-abdominal or retroperitoneal adenopathy is identified. There is no evidence of pelvic adenopathy or free fluid. The prostate and bladder are unremarkable. The soft tissue structures of the lower extremity are unremarkable. No destructive osseous lesions are seen. IMPRESSION: Extensive atherosclerosis with occlusion of the superficial femoral arteries bilaterally as describe d above. RPTAT: HIKT .Will Franz MD, MD Date Time Electronically viewed and signed by .Will Franz MD, MD on 01/05/2017 00:40 .T/
[2017-01-05] MEDS: ASCORBIC ACID 500 MG TAB PO SCH (08:25)
[2017-01-05] MEDS: MULTIVITAMINS/MINERALS TAB PO SCH (08:25)
[2017-01-05] MEDS: CALCIUM/VITAMIN D (500/200) TAB PO SCH (08:25)
[2017-01-05] MEDS: FOLIC ACID 1 MG TAB PO SCH (08:26)
[2017-01-05] MEDS: DOCUSATE SODIUM 100 MG CAP PO SCH (08:27)
[2017-01-05 08:31] LABS: ADD SCAN DIFF NO
[2017-01-05] MEDS: ENOXAPARIN 30 MG/0.3 ML SYG SC SCH (08:36)
[2017-01-05 08:42] LABS: BASOPHILS % 0.3 % (0.0-2.0); EOSINOPHILS # 0.1 10^3/ul (0.0-0.5); EOSINOPHILS % 0.8 % (0.0-7.0); HEMATOCRIT 27.1 % (42.0-52.0); LYMPHOCYTES # 1.4 10^3/ul (0.8-2.9); LYMPHOCYTES % 23.7 % (15.0-51.0); MEAN CORPUSCULAR HEMOGLOBIN 29.4 pg (29.0-33.0); MEAN CORPUSCULAR HGB CONC 33.2 g/dl (32.0-37.0); MEAN CORPUSCULAR VOLUME 88.6 fl (82.0-101.0); MEAN PLATELET VOLUME 8.6 fl (7.4-10.4); MONOCYTE # 0.5 10^3/ul (0.3-0.9); MONOCYTES % 7.5 % (0.0-11.0); NEUTROPHILS % 66.7 % (39.0-77.0); PLATELET COUNT 163 10^3/UL (140-415); RED BLOOD COUNT 3.06 10^6/ul (4.70-6.10); RED CELL DISTRIBUTION WIDTH 16.1 % (11.5-14.5)
[2017-01-05 09:06] LABS: CREATININE 0.53 mg/dl (0.61-1.24); POTASSIUM 4.4 mmol/L (3.5-5.1)
[2017-01-05] MEDS: VANCOMYCIN 500MG/NS (PMX) 100 ML IVPB SCH (09:29)
[2017-01-05] MEDS: ERTAPENEM SODIUM 1 GM in SOD CHLORIDE 0.9% 100 ML IVPB SCH (09:30)
--- NOTE | 2017-01-05 13:51 | PN ---
Date/Time of Note Date/Time of Note DATE: 01/05/17 TIME: 13:49 Assessment/Plan Lines/Catheters IV Catheter Type (from Nrsg): PICC Line Arnett in Place (from Nrsg): No Assessment/Plan Chief Complaint/Hosp Course Assessment/Plan Chief Complaint/Hosp Course Peripheral vascular disease Problems: Additional Assessment/Plan Patient is nonambulatory at this time and contracted Patient has abnormal arterial studies indicative of possible aortobiiliac disease patient will need an amputation 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 Patient would need above knee amputations based on the superficial femoral artery occlusions We will discuss with the referring physicians We will proceed with the amputation when family is agreeable Problems: Subjective 24 Hr Interval Summary Constitutional: improved Pain Control: mild Exam/Review of Systems Vital Signs Vitals Vital Signs Date Time Temp Pulse Resp B/P Pulse Ox O2 Delivery O2 Flow Rate FiO2 01/05/17 08:21 98.4 66 16 139/61 98 01/05/17 01:47 2.0 01/04/17 20:00 Nasal Cannula Intake and Output 01/04/17 01/04/17 01/05/17 15:00 23:00 07:00 Intake Total 200 ml 755 ml 880 ml Balance 200 ml 755 ml 880 ml Exam Neck: non-tender, supple Respiratory: clear to auscultation, normal air movement Cardiovascular: nl pulses, regular rate and rhythm Gastrointestinal: nl liver, spleen, non-tender, soft Results Result Diagram: 01/05/17 0741 01/05/17 0741 AMIRAH GALVEZ MD Jan 05, 2017 13:51
--- NOTE | 2017-01-05 15:41 | RADRPT ---
PROCEDURE: XR Chest. CLINICAL INDICATION: Check nasogastric tube position. TECHNIQUE: Single frontal view. COMPARISON: 01/04/2017. FINDINGS: There is a nasogastric tube with the tip now in the stomach. The left arm PICC line is in satisfact ory position. The lungs are clear. The heart size is normal. There is calcification in the aorta consistent with atherosclerosis. There is no pleural effusion or pneumothorax. There is an old angulated fracture of the midshaft of the right humerus. IMPRESSION: 1. Nasogastric tube tip in the stomach. 2. No other change from 01/04/2017. RPTAT: QQ .Dae Agustin MD, MD Date Time Electronically viewed and signed by .Dae Agustin MD, MD on 01/05/2017 15:40 .R/
[2017-01-05] MEDS: MIRTAZAPINE 15 MG TAB PO SCH (21:13)
[2017-01-06] VITALS (17 sets, daily range): BP systolic 121–169; BP diastolic 58–86; PULSE 70–82; RESP 16–20
[2017-01-06] MEDS: D5W-0.45 NACL + KCL 40 MEQ 1,000 ML IV SCH ×2 (00:44→04:20)
[2017-01-06] MEDS: VANCOMYCIN 1 GM in NS 250 ML IVPB SCH (04:20)
[2017-01-06] MEDS: CALCIUM/VITAMIN D (500/200) TAB PO SCH (09:41)
[2017-01-06] MEDS: MULTIVITAMINS/MINERALS TAB PO SCH (09:41)
[2017-01-06] MEDS: FOLIC ACID 1 MG TAB PO SCH (09:41)
[2017-01-06] MEDS: DOCUSATE SODIUM 100 MG CAP PO SCH (09:41)
[2017-01-06] MEDS: ASCORBIC ACID 500 MG TAB PO SCH (09:41)
[2017-01-06] MEDS: ERTAPENEM SODIUM 1 GM in SOD CHLORIDE 0.9% 100 ML IVPB SCH (09:41)
[2017-01-06] MEDS: ENOXAPARIN 30 MG/0.3 ML SYG SC SCH (10:03)
--- NOTE | 2017-01-06 13:16 | PN ---
Date/Time of Note Date/Time of Note DATE: 01/06/17 TIME: 13:15 Assessment/Plan Lines/Catheters IV Catheter Type (from Nrsg): PICC Line Arnett in Place (from Nrsg): No Assessment/Plan Chief Complaint/Hosp Course Assessment/Plan Chief Complaint/Hosp Course Peripheral vascular disease Problems: Additional Assessment/Plan Patient is nonambulatory at this time and contracted Patient has abnormal arterial studies indicative of possible aortobiiliac disease patient will need an amputation 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 Patient would need above knee amputations based on the superficial femoral artery occlusions We will discuss with the referring physicians We will proceed with the amputation when family is agreeable Problems: Subjective 24 Hr Interval Summary Constitutional: improved Pain Control: mild Exam/Review of Systems Vital Signs Vitals Vital Signs Date Time Temp Pulse Resp B/P Pulse Ox O2 Delivery O2 Flow Rate FiO2 01/06/17 12:00 97.7 70 20 132/81 96 2.0 01/05/17 21:00 Nasal Cannula Intake and Output 01/05/17 01/05/17 01/06/17 15:00 23:00 07:00 Intake Total 200 ml 740 ml 1430 ml Balance 200 ml 740 ml 1430 ml Exam Neck: non-tender, supple Respiratory: clear to auscultation, normal air movement, No congested cough, No crackles/rales, No diminished breath sounds, No intercostal retraction, No labored breathing, No other, No respirations, No tactile fremitus, No wheezing Gastrointestinal: nl liver, spleen, non-tender, soft Results Result Diagram: 01/05/17 0741 01/05/17 0741 AMIRAH GALVEZ MD Jan 06, 2017 13:16
[2017-01-06] MEDS: MIRTAZAPINE 15 MG TAB PO SCH (21:03)
[2017-01-07] VITALS (13 sets, daily range): BP systolic 120–159; BP diastolic 62–120; PULSE 56–93; RESP 17–20
[2017-01-07] MEDS: D5W-0.45 NACL + KCL 40 MEQ 1,000 ML IV SCH (00:44)
[2017-01-07] MEDS: VANCOMYCIN 1 GM in NS 250 ML IVPB SCH (04:30)
[2017-01-07 05:59] LABS: ADD SCAN DIFF NO
[2017-01-07 06:05] LABS: BASOPHILS % 0.3 % (0.0-2.0); EOSINOPHILS # 0.1 10^3/ul (0.0-0.5); EOSINOPHILS % 1.3 % (0.0-7.0); HEMATOCRIT 32.1 % (42.0-52.0); HEMOGLOBIN 10.2 g/dl (14.0-18.0); LYMPHOCYTES # 2.6 10^3/ul (0.8-2.9); LYMPHOCYTES % 29.2 % (15.0-51.0); MEAN CORPUSCULAR HEMOGLOBIN 28.3 pg (29.0-33.0); MEAN CORPUSCULAR HGB CONC 31.8 g/dl (32.0-37.0); MEAN CORPUSCULAR VOLUME 88.9 fl (82.0-101.0); MEAN PLATELET VOLUME 9.2 fl (7.4-10.4); MONOCYTE # 0.7 10^3/ul (0.3-0.9); MONOCYTES % 7.3 % (0.0-11.0); NEUTROPHIL # 5.4 10^3/ul (1.6-7.5); NEUTROPHILS % 60.8 % (39.0-77.0); PLATELET COUNT 202 10^3/UL (140-415); RED BLOOD COUNT 3.61 10^6/ul (4.70-6.10); RED CELL DISTRIBUTION WIDTH 16.3 % (11.5-14.5); WHITE BLOOD COUNT 8.9 10^3/ul (4.8-10.8)
[2017-01-07 07:01] LABS: CALCIUM 8.9 mg/dl (8.4-10.2); CREATININE 0.59 mg/dl (0.61-1.24)
[2017-01-07 07:12] LABS: POTASSIUM 5.5 mmol/L (3.5-5.1)
[2017-01-07] MEDS ORDERED: MAGNESIUM HYDROXIDE 30ML CUP NGT PRN (09:14)
[2017-01-07] MEDS: ERTAPENEM SODIUM 1 GM in SOD CHLORIDE 0.9% 100 ML IVPB SCH (09:21)
[2017-01-07] MEDS: FOLIC ACID 1 MG TAB NGT SCH (09:32)
[2017-01-07] MEDS: DOCUSATE SODIUM 10 MG/ML (10ML CUP) NGT SCH (09:33)
[2017-01-07] MEDS: CALCIUM/VITAMIN D (500/200) TAB NGT SCH (09:33)
[2017-01-07] MEDS: MULTIVITAMINS/MINERALS TAB NGT SCH (09:33)
[2017-01-07] MEDS: ENOXAPARIN 30 MG/0.3 ML SYG SC SCH (09:43)
[2017-01-07] MEDS ORDERED: FUROSEMIDE 20 MG INJ IV ONE (15:30)
[2017-01-07] MEDS: ALBUTEROL 0.083% (NEB) 2.5 MG/3 ML AMP HHN SCH ×2 (17:01→19:48)
[2017-01-07] MEDS: MIRTAZAPINE 15 MG TAB NGT SCH (20:49)
[2017-01-08] VITALS (15 sets, daily range): BP systolic 101–183; BP diastolic 46–84; PULSE 76–88; RESP 17–20
[2017-01-08] MEDS: ALBUTEROL 0.083% (NEB) 2.5 MG/3 ML AMP HHN SCH ×4 (01:22→20:13)
[2017-01-08] MEDS: VANCOMYCIN 1 GM in NS 250 ML IVPB SCH (04:48)
[2017-01-08 05:47] LABS: BASOPHIL # 0.1 10^3/ul (0.0-0.1); BASOPHILS % 0.5 % (0.0-2.0); EOSINOPHILS # 0.1 10^3/ul (0.0-0.5); EOSINOPHILS % 0.9 % (0.0-7.0); HEMATOCRIT 30.4 % (42.0-52.0); HEMOGLOBIN 9.8 g/dl (14.0-18.0); LYMPHOCYTES # 2.7 10^3/ul (0.8-2.9); LYMPHOCYTES % 24.5 % (15.0-51.0); MEAN CORPUSCULAR HEMOGLOBIN 28.7 pg (29.0-33.0); MEAN CORPUSCULAR HGB CONC 32.2 g/dl (32.0-37.0); MEAN CORPUSCULAR VOLUME 89.1 fl (82.0-101.0); MEAN PLATELET VOLUME 8.8 fl (7.4-10.4); MONOCYTE # 0.8 10^3/ul (0.3-0.9); MONOCYTES % 7.2 % (0.0-11.0); NEUTROPHIL # 7.1 10^3/ul (1.6-7.5); NEUTROPHILS % 65.4 % (39.0-77.0); PLATELET COUNT 208 10^3/UL (140-415); RED BLOOD COUNT 3.41 10^6/ul (4.70-6.10); WHITE BLOOD COUNT 10.8 10^3/ul (4.8-10.8)
[2017-01-08 06:05] LABS: CALCIUM 8.9 mg/dl (8.4-10.2); CREATININE 0.7 mg/dl (0.61-1.24); MAGNESIUM 1.5 mg/dl (1.7-2.5); POTASSIUM 4.7 mmol/L (3.5-5.1)
[2017-01-08] MEDS: DOCUSATE SODIUM 10 MG/ML (10ML CUP) NGT SCH (08:11)
[2017-01-08] MEDS: ASCORBIC ACID 500 MG TAB NGT SCH (08:12)
[2017-01-08] MEDS: FOLIC ACID 1 MG TAB NGT SCH (08:15)
[2017-01-08] MEDS: CALCIUM/VITAMIN D (500/200) TAB NGT SCH (08:15)
[2017-01-08] MEDS: ENOXAPARIN 30 MG/0.3 ML SYG SC SCH (08:31)
[2017-01-08] MEDS: ERTAPENEM SODIUM 1 GM in SOD CHLORIDE 0.9% 100 ML IVPB SCH (09:43)
[2017-01-08] MEDS ORDERED: MAGNESIUM SULFATE 3 GM in SOD CHLORIDE 0.9% 100 ML IVPB ONE (14:30)
--- NOTE | 2017-01-08 16:59 | RADRPT ---
PROCEDURE: XR Chest. CLINICAL INDICATION: Shortness of breath. TECHNIQUE: Single frontal view. COMPARISON: 01/05/2017. FINDINGS: The right arm PICC line and nasogastric tube remain in satisfactory position. The lungs are clear. The heart size is normal. There is no pleural effusion or pneumothorax. An old angulated fracture of the midshaft of the right humerus is unchanged. IMPRESSION: 1. No change from 01/05/2017. RPTAT: QQ .Dae Agustin MD, Date Time Electronically viewed and signed by .Dae Agustin MD, MD on 01/08/2017 16:59 .R/
[2017-01-08] MEDS: MIRTAZAPINE 15 MG TAB NGT SCH (20:40)
[2017-01-09] VITALS (12 sets, daily range): BP systolic 106–150; BP diastolic 53–86; PULSE 71–88; RESP 16–20
[2017-01-09] MEDS: ALBUTEROL 0.083% (NEB) 2.5 MG/3 ML AMP HHN SCH ×4 (01:20→19:38)
[2017-01-09 05:01] LABS: CREATININE 0.64 mg/dl (0.61-1.24)
[2017-01-09] MEDS: ASCORBIC ACID 500 MG TAB NGT SCH (08:14)
[2017-01-09] MEDS: ERTAPENEM SODIUM 1 GM in SOD CHLORIDE 0.9% 100 ML IVPB SCH (08:14)
[2017-01-09] MEDS: CALCIUM/VITAMIN D (500/200) TAB NGT SCH (08:14)
[2017-01-09] MEDS: MULTIVITAMINS/MINERALS TAB NGT SCH (08:14)
[2017-01-09] MEDS: DOCUSATE SODIUM 10 MG/ML (10ML CUP) NGT SCH (08:14)
[2017-01-09] MEDS: FOLIC ACID 1 MG TAB NGT SCH (08:14)
[2017-01-09] MEDS: ENOXAPARIN 30 MG/0.3 ML SYG SC SCH (08:31)
[2017-01-09] MEDS: VANCOMYCIN 750 MG in SOD CHLORIDE 0.9% 150 ML IVPB SCH (11:13)
[2017-01-09] MEDS: MIRTAZAPINE 15 MG TAB NGT SCH (20:39)
[2017-01-10] VITALS (14 sets, daily range): BP systolic 110–139; BP diastolic 56–91; PULSE 91–94; RESP 18–20
[2017-01-10] MEDS: ALBUTEROL 0.083% (NEB) 2.5 MG/3 ML AMP HHN SCH ×4 (01:31→20:10)
[2017-01-10 05:53] LABS: BASOPHILS % 0.2 % (0.0-2.0); EOSINOPHILS # 0.1 10^3/ul (0.0-0.5); EOSINOPHILS % 0.6 % (0.0-7.0); HEMATOCRIT 30.1 % (42.0-52.0); HEMOGLOBIN 9.8 g/dl (14.0-18.0); LYMPHOCYTES # 1.8 10^3/ul (0.8-2.9); MEAN CORPUSCULAR HEMOGLOBIN 28.9 pg (29.0-33.0); MEAN CORPUSCULAR HGB CONC 32.6 g/dl (32.0-37.0); MEAN CORPUSCULAR VOLUME 88.8 fl (82.0-101.0); MEAN PLATELET VOLUME 9.3 fl (7.4-10.4); MONOCYTE # 0.9 10^3/ul (0.3-0.9); MONOCYTES % 6.6 % (0.0-11.0); NEUTROPHIL # 10.6 10^3/ul (1.6-7.5); NEUTROPHILS % 78.7 % (39.0-77.0); PLATELET COUNT 217 10^3/UL (140-415); RED BLOOD COUNT 3.39 10^6/ul (4.70-6.10); RED CELL DISTRIBUTION WIDTH 16.2 % (11.5-14.5); WHITE BLOOD COUNT 13.4 10^3/ul (4.8-10.8)
[2017-01-10 06:27] LABS: CALCIUM 8.8 mg/dl (8.4-10.2); CREATININE 0.68 mg/dl (0.61-1.24); MAGNESIUM 1.9 mg/dl (1.7-2.5); POTASSIUM 4.4 mmol/L (3.5-5.1)
[2017-01-10] MEDS: ERTAPENEM SODIUM 1 GM in SOD CHLORIDE 0.9% 100 ML IVPB SCH (09:16)
[2017-01-10] MEDS: FOLIC ACID 1 MG TAB NGT SCH (09:18)
[2017-01-10] MEDS: MULTIVITAMINS/MINERALS TAB NGT SCH (09:18)
[2017-01-10] MEDS: DOCUSATE SODIUM 10 MG/ML (10ML CUP) NGT SCH (09:18)
[2017-01-10] MEDS: CALCIUM/VITAMIN D (500/200) TAB NGT SCH (09:18)
[2017-01-10] MEDS: ASCORBIC ACID 500 MG TAB NGT SCH (09:18)
[2017-01-10] MEDS: ENOXAPARIN 30 MG/0.3 ML SYG SC SCH (09:44)
[2017-01-10] MEDS: VANCOMYCIN 750 MG in SOD CHLORIDE 0.9% 150 ML IVPB SCH (11:11)
--- NOTE | 2017-01-10 12:35 | PN ---
Date/Time of Note Date/Time of Note DATE: 01/10/17 TIME: 12:34 Assessment/Plan Lines/Catheters IV Catheter Type (from Nrsg): PICC Line Arnett in Place (from Nrsg): Yes Assessment/Plan Chief Complaint/Hosp Course Assessment/Plan Chief Complaint/Hosp Course Peripheral vascular disease Problems: Additional Assessment/Plan Patient is nonambulatory at this time and contracted Patient has abnormal arterial studies indicative of possible aortobiiliac disease patient will need an amputation 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 Patient would need above knee amputations based on the superficial femoral artery occlusions We will discuss with the referring physicians We will proceed with the amputation when family is agreeable Problems: Subjective 24 Hr Interval Summary Constitutional: improved Pain Control: mild Exam/Review of Systems Vital Signs Vitals Vital Signs Date Time Temp Pulse Resp B/P Pulse Ox O2 Delivery O2 Flow Rate FiO2 01/10/17 11:31 Nasal Cannula 2.0 01/10/17 10:00 98.2 91 18 126/67 95 Intake and Output 01/09/17 01/09/17 01/10/17 15:00 23:00 07:00 Intake Total 1000 ml 150 ml 730 ml Output Total 750 ml Balance 1000 ml -600 ml 730 ml Exam Neck: non-tender, supple Respiratory: clear to auscultation, normal air movement Cardiovascular: nl pulses, regular rate and rhythm Gastrointestinal: nl liver, spleen, non-tender, soft Results Result Diagram: 01/10/17 0521 01/10/17 0521 AMIRAH GALVEZ MD Jan 10, 2017 12:35
[2017-01-10] MEDS: MIRTAZAPINE 15 MG TAB NGT SCH (21:00)
[2017-01-11] VITALS (13 sets, daily range): BP systolic 122–140; BP diastolic 56–91; PULSE 75–99; RESP 16–22
[2017-01-11] MEDS: ALBUTEROL 0.083% (NEB) 2.5 MG/3 ML AMP HHN SCH ×4 (01:49→20:13)
[2017-01-11] MEDS: MULTIVITAMINS/MINERALS TAB NGT SCH (09:00)
[2017-01-11] MEDS: CALCIUM/VITAMIN D (500/200) TAB NGT SCH (09:51)
[2017-01-11] MEDS: ASCORBIC ACID 500 MG TAB NGT SCH (09:51)
[2017-01-11] MEDS: DOCUSATE SODIUM 10 MG/ML (10ML CUP) NGT SCH (09:51)
[2017-01-11] MEDS: FOLIC ACID 1 MG TAB NGT SCH (09:52)
[2017-01-11] MEDS: ERTAPENEM SODIUM 1 GM in SOD CHLORIDE 0.9% 100 ML IVPB SCH (10:02)
[2017-01-11] MEDS: ENOXAPARIN 30 MG/0.3 ML SYG SC SCH (10:10)
--- NOTE | 2017-01-11 10:21 | PN ---
DATE: SUBJECTIVE DATA: The patient is very lethargic. Speech therapy has evaluated the patient and recommended that the patient be on an n.p.o. status OBJECTIVE DATA: VITAL SIGNS: Temperature 98.1, blood pressure 150/71, O2 saturations 96 percent on room air. HEENT: Head normocephalic. Mild pallor without cyanosis. CHEST: Clinically clear. HEART: S1, S2. No rubs or gallops. EXTREMITIES: No edema. LABORATORY: WBC count would be 12.7, hematocrit 28.3. Platelet count is 155, 000. Sodium 131, potassium 4. BUN 13, creatinine 0.62. Magnesium 1.5. Cholesterol 71, LDL 37. T4 is 5.2, TSH 4.48. Blood cultures positive for staph aureus. Gram stain pending wound culture is positive for staph aureus. IMPRESSION: 1. Staphylococcus bacteremia, likely from the right foot wound. 2. Peripheral vascular disease. 3. History of abnormal aortic aneurysm. 4. Chronic obstructive pulmonary disease (COPD). 5. Coronary artery disease. 6. Status post paresis. PLAN: The patient has been started on vancomycin, will continue same. Will keep patient on n.p.o. status as patient is at high risk for aspiration. Will request Dr Bhavin Romo from vascular for evaluation in due course after stabilizing the patient medically. Continue local wound care. Discussed patient's condition with patient's daughter, Laure. Dictated By: Santo Mckeon MD /[email or web address]/reny /Document#: [id number]
[2017-01-11] MEDS: VANCOMYCIN 750 MG in SOD CHLORIDE 0.9% 150 ML IVPB SCH (11:26)
--- NOTE | 2017-01-11 11:55 | PN ---
DATE: 12/30/2016 SUBJECTIVE DATA: The patient is very lethargic. OBJECTIVE DATA: VITAL SIGNS: Temperature 99, blood pressure 132/79. O2 saturation is 100 percent. HEENT: Mild pallor cyanosis. RESPIRATORY: Clinically clear. CARDIAC: S1, S2. No murmur or gallop. ABDOMEN: Soft. Nontender. No hepatosplenomegaly. EXTREMITIES: No edema. Wound is unchanged, right foot. LABORATORY AND DIAGNOSTIC DATA: WBC 7.6, hematocrit is 30. Sodium 130, potassium 4.1, BUN 11, creatinine 0.62. Repeat magnesium is 2.3. IMPRESSION: 1. Necrotic ulcers right foot, secondary to peripheral artery disease. 2. History of abdominal aneurism. 3. Coronary artery disease, status post-right stenting. 4. Status post-cerebrovascular accident. 5. Hypomagnesemia, resolved. 6. Mild anemia. PLAN: Patient also has dysphagia, being followed by speech therapy. I have discussed with the patient's daughter yesterday, who requested no tube feedings be considered. We will re- evaluate speech therapy. We will also get vascular evaluation with Dr. Romo. Dictated By: Santo Mckeon MD /[email or web address]/[email or web address] /Document#: [id number]
--- NOTE | 2017-01-11 19:54 | PN ---
Date/Time of Note Date/Time of Note DATE: 01/11/17 TIME: 19:53 Assessment/Plan Lines/Catheters IV Catheter Type (from Nrsg): PICC Line Arnett in Place (from Nrsg): Yes Assessment/Plan Chief Complaint/Hosp Course Assessment/Plan Chief Complaint/Hosp Course Peripheral vascular disease Problems: Additional Assessment/Plan Patient is nonambulatory at this time and contracted Patient has abnormal arterial studies indicative of possible aortobiiliac disease patient will need an amputation 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 Patient would need above knee amputations based on the superficial femoral artery occlusions We will discuss with the referring physicians We will proceed with the amputation when family is agreeable Problems: Subjective 24 Hr Interval Summary Constitutional: improved Pain Control: mild Exam/Review of Systems Vital Signs Vitals Vital Signs Date Time Temp Pulse Resp B/P Pulse Ox O2 Delivery O2 Flow Rate FiO2 01/11/17 18:00 99.3 75 18 131/61 97 Nasal Cannula 2.0 Intake and Output 01/10/17 01/10/17 01/11/17 15:00 23:00 07:00 Intake Total 250 ml 720 ml 730 ml Output Total 400 ml 500 ml Balance 250 ml 320 ml 230 ml Exam ENMT: mucosa pink and moist, nl external ears & nose, nl lips & teeth, nl nasal mucosa & septum Neck: non-tender, supple Respiratory: clear to auscultation, normal air movement Cardiovascular: nl pulses, regular rate and rhythm Results Result Diagram: 01/10/17 0521 01/10/17 0521 AMIRAH GALVEZ MD Jan 11, 2017 19:54
[2017-01-11] MEDS: MIRTAZAPINE 15 MG TAB NGT SCH (20:56)
[2017-01-12] VITALS (14 sets, daily range): BP systolic 118–146; BP diastolic 60–87; PULSE 72–93; RESP 16–20
[2017-01-12] MEDS: ALBUTEROL 0.083% (NEB) 2.5 MG/3 ML AMP HHN SCH ×4 (02:09→20:40)
--- NOTE | 2017-01-12 04:52 | PN ---
DATE: SUBJECTIVE DATA: Patient is more responsive today. Denies any significant pain. No chest pain or shortness of breath. OBJECTIVE DATA: VITAL SIGNS: Patient is afebrile. temperature 97.8. Blood pressure 116/78, O2 saturation 99 percent on room air. HEENT: Head normocephalic. Mild pallor without cyanosis. Tongue is moist. NECK: Supple. No thyromegaly, bruits, or lymphadenopathy. CHEST: Clinically clear. HEART: S1, S2. No definite gallops. EXTREMITIES: No edema. Moderate contractures noted. Wounds unchanged. LABORATORY AND DIAGNOSTIC DATA: Urine cultures growing Gram- negative rods. Potassium 4.7, magnesium 1.7. WBC count 8.1, hematocrit 33.6. IMPRESSION: 1. Necrotic ulcer, right foot. The basis being pathological disease. 2. Chronic obstructive pulmonary disease (COPD). 3. Coronary artery disease. 4. Status post paresis. 5. Chronic right shoulder dislocation. PLAN: Will add Rocephin. Discuss with speech therapy to consider restarting feedings. Also add Rocephin for treatment of urinary tract infection pending cultures. Request vascular consultation, Dr Romo, for further recommendations. Dictated By: Santo Mckeon MD /[email or web address]/reny /Document#: [id number]
--- NOTE | 2017-01-12 04:59 | PN ---
DATE: 01/01/2017 SUBJECTIVE DATA: The patient is more responsive. Has occasional cough. Nonverbal. PHYSICAL EXAMINATION: GENERAL: He is in no acute distress. VITAL SIGNS: Temperature 98.4, blood pressure 142/75, and O2 sat 98 on 2 liters of nasal cannula. CHEST: Decreased breath sounds at bases. HEART: S1, S2, regular rhythm, no definite gallops. EXTREMITIES: Right foot wounds unchanged. LABORATORY AND DIAGNOSTIC DATA: Urine culture growing Klebsiella 100,000 colony count, MDR, ESBL. IMPRESSION: 1. Necrotic ulcer (vascular etiology) with cellulitis, methicillin resistant staphylococcus aureus (MRSA) infection. 2. Urinary tract infection with multi drug resistance (MDR), extended-spectrum B lactamase (ESBL) escherichia coli. 3. Status post cerebrovascular accident (CVA) of the right [____] paresis. 4. Right shoulder dislocation chronic. 5. History of abdominal aneurysm. 6. Coronary artery disease, status post [____]. 7. Chronic obstructive pulmonary disease (COPD). PLAN: We will continue IV antibiotics for now. Change from Rocephin to imipenem. I have requesting Dr. Romo, for vascular evaluation. We will continue with speech therapy recommendation. Recheck labs in a.m. Dictated By: Santo Mckeon MD /[email or web address]/shreya /Document#: [id number]
[2017-01-12 05:42] LABS: BASOPHILS % 0.2 % (0.0-2.0); EOSINOPHILS # 0.1 10^3/ul (0.0-0.5); EOSINOPHILS % 1.3 % (0.0-7.0); HEMATOCRIT 21.1 % (42.0-52.0); LYMPHOCYTES # 1.9 10^3/ul (0.8-2.9); LYMPHOCYTES % 19.7 % (15.0-51.0); MEAN CORPUSCULAR HEMOGLOBIN 29.4 pg (29.0-33.0); MEAN CORPUSCULAR HGB CONC 33.2 g/dl (32.0-37.0); MEAN CORPUSCULAR VOLUME 88.7 fl (82.0-101.0); MEAN PLATELET VOLUME 9.7 fl (7.4-10.4); MONOCYTE # 0.6 10^3/ul (0.3-0.9); MONOCYTES % 5.8 % (0.0-11.0); NEUTROPHIL # 6.9 10^3/ul (1.6-7.5); PLATELET COUNT 229 10^3/UL (140-415); RED BLOOD COUNT 2.38 10^6/ul (4.70-6.10); WHITE BLOOD COUNT 9.6 10^3/ul (4.8-10.8)
[2017-01-12 06:01] LABS: INR 0.98
[2017-01-12 06:02] LABS: PARTIAL THROMBOPLASTIN TIME 28.7 Sec (25.0-35.0)
[2017-01-12 06:10] LABS: CALCIUM 8.8 mg/dl (8.4-10.2); CREATININE 0.57 mg/dl (0.61-1.24); POTASSIUM 4.2 mmol/L (3.5-5.1)
[2017-01-12] MEDS: ERTAPENEM SODIUM 1 GM in SOD CHLORIDE 0.9% 100 ML IVPB SCH (10:44)
[2017-01-12] MEDS: FOLIC ACID 1 MG TAB NGT SCH (11:00)
[2017-01-12] MEDS: ASCORBIC ACID 500 MG TAB NGT SCH (11:00)
[2017-01-12] MEDS: CALCIUM/VITAMIN D (500/200) TAB NGT SCH (11:00)
[2017-01-12] MEDS: DOCUSATE SODIUM 10 MG/ML (10ML CUP) NGT SCH (11:00)
[2017-01-12] MEDS: MULTIVITAMINS/MINERALS TAB NGT SCH (11:00)
[2017-01-12] MEDS: ENOXAPARIN 30 MG/0.3 ML SYG SC SCH (11:53)
--- NOTE | 2017-01-12 11:57 | PN ---
Date/Time of Note Date/Time of Note DATE: 01/12/17 TIME: 11:57 Assessment/Plan Lines/Catheters IV Catheter Type (from Nrsg): PICC Line Arnett in Place (from Nrsg): Yes Assessment/Plan Chief Complaint/Hosp Course Assessment/Plan Chief Complaint/Hosp Course Peripheral vascular disease Problems: Additional Assessment/Plan Patient is nonambulatory at this time and contracted Patient has abnormal arterial studies indicative of possible aortobiiliac disease patient will need an amputation 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 Patient would need above knee amputations based on the superficial femoral artery occlusions We will discuss with the referring physicians We will proceed with the amputation when family is agreeable Problems: Subjective 24 Hr Interval Summary Constitutional: improved Pain Control: mild Exam/Review of Systems Vital Signs Vitals Vital Signs Date Time Temp Pulse Resp B/P Pulse Ox O2 Delivery O2 Flow Rate FiO2 01/12/17 10:05 98.7 78 18 134/75 100 Nasal Cannula 2.0 Intake and Output 01/11/17 01/11/17 01/12/17 15:00 23:00 07:00 Intake Total 250 ml 730 ml Output Total 550 ml 850 ml Balance 250 ml 180 ml -850 ml Exam ENMT: mucosa pink and moist, nl external ears & nose, nl lips & teeth, nl nasal mucosa & septum Neck: non-tender, supple Respiratory: clear to auscultation, normal air movement Cardiovascular: nl pulses, regular rate and rhythm Gastrointestinal: nl liver, spleen, non-tender, soft Results Result Diagram: 01/12/17 0510 01/12/17 0510 AMIRAH GALVEZ MD Jan 12, 2017 11:57
--- NOTE | 2017-01-12 12:10 | PN ---
DATE: 01/05/2017 SUBJECTIVE DATA: The patient is lethargic. He had pulled the NG tube out earlier. It has been reinserted. OBJECTIVE DATA: OBJECTIVE DATA: Temperature 98.4, blood pressure 113/61, O2 sat 100 percent on 2 L nasal cannula. RESPIRATORY: Chest occasional rhonchi. CARDIAC: Heart S1, S2. No murmurs, rub or gallops. EXTREMITIES: No edema. LABORATORY AND DIAGNOSTIC DATA: WBC 6.0, hematocrit 27.1, platelet count 163,000. Sodium 137, potassium 4.4, BUN 7, creatinine 0.53. ASSESSMENT AND PLAN: 1. Necrotic ulcers, right foot, secondary to peripheral artery disease. 2. History of abdominal aortic aneurysm with aortoiliac disease. 3. COPD. 4. disease. 5. Dementia. 6. 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 7. Displaced fracture right humerus, chronic. Continue IV antibiotics. Monitor for UTI with E coli ESBL and follow recommendations per Dr. Cortes. Dictated By: Santo Mckeon MD /marycruz/ /Document#: [id number]
[2017-01-12] MEDS: VANCOMYCIN 750 MG in SOD CHLORIDE 0.9% 150 ML IVPB SCH (15:47)
[2017-01-12] MEDS: MIRTAZAPINE 15 MG TAB NGT SCH (21:07)
[2017-01-13] VITALS (15 sets, daily range): BP systolic 117–149; BP diastolic 57–75; PULSE 71–89; RESP 16–20
[2017-01-13] MEDS: ALBUTEROL 0.083% (NEB) 2.5 MG/3 ML AMP HHN SCH ×4 (02:14→19:40)
[2017-01-13 05:30] LABS: BASOPHILS % 0.4 % (0.0-2.0); EOSINOPHILS # 0.2 10^3/ul (0.0-0.5); EOSINOPHILS % 1.9 % (0.0-7.0); HEMATOCRIT 25.3 % (42.0-52.0); HEMOGLOBIN 8.1 g/dl (14.0-18.0); LYMPHOCYTES # 1.9 10^3/ul (0.8-2.9); LYMPHOCYTES % 22.6 % (15.0-51.0); MEAN CORPUSCULAR HEMOGLOBIN 27.7 pg (29.0-33.0); MEAN CORPUSCULAR VOLUME 86.6 fl (82.0-101.0); MEAN PLATELET VOLUME 9.6 fl (7.4-10.4); MONOCYTE # 0.6 10^3/ul (0.3-0.9); MONOCYTES % 6.9 % (0.0-11.0); NEUTROPHIL # 5.7 10^3/ul (1.6-7.5); NEUTROPHILS % 67.1 % (39.0-77.0); PLATELET COUNT 235 10^3/UL (140-415); RED BLOOD COUNT 2.92 10^6/ul (4.70-6.10); RED CELL DISTRIBUTION WIDTH 16.1 % (11.5-14.5); WHITE BLOOD COUNT 8.5 10^3/ul (4.8-10.8)
[2017-01-13 06:18] LABS: CALCIUM 8.7 mg/dl (8.4-10.2); CREATININE 0.56 mg/dl (0.61-1.24); MAGNESIUM 1.6 mg/dl (1.7-2.5); POTASSIUM 4.5 mmol/L (3.5-5.1)
[2017-01-13] MEDS: MULTIVITAMINS/MINERALS TAB NGT SCH (10:30)
[2017-01-13] MEDS: FOLIC ACID 1 MG TAB NGT SCH (10:30)
[2017-01-13] MEDS: DOCUSATE SODIUM 10 MG/ML (10ML CUP) NGT SCH (10:30)
[2017-01-13] MEDS: CALCIUM/VITAMIN D (500/200) TAB NGT SCH (10:31)
[2017-01-13] MEDS: ENOXAPARIN 30 MG/0.3 ML SYG SC SCH (10:33)
[2017-01-13] MEDS: ERTAPENEM SODIUM 1 GM in SOD CHLORIDE 0.9% 100 ML IVPB SCH (10:43)
[2017-01-13] MEDS: ASCORBIC ACID 500 MG TAB NGT SCH (10:43)
[2017-01-13] MEDS: VANCOMYCIN 750 MG in SOD CHLORIDE 0.9% 150 ML IVPB SCH (14:27)
--- NOTE | 2017-01-13 16:12 | PN ---
DATE: 01/13/2017 SUBJECTIVE DATA: The patient is lethargic, shortness of breath. Status post 1 unit of RBC transfusion. OBJECTIVE DATA: VITAL SIGNS: On physical exam the Patient is afebrile. Blood pressure 122/61. O2 saturation 99 percent on 2 liters nasal cannula. Moderate pallor with cyanosis. CHEST: Bilateral wheezes. HEART: S1, S2. No definite gallops. ABDOMEN: Soft, nontender. No hepatosplenomegaly. EXTREMITIES: Contracted. Wounds with no significant change. LABORATORY: WBC 8.5, hematocrit 25.3, platelet count is 235,000. Sodium 140, potassium 4.2, magnesium 1.6. IMPRESSION: 1. Necrotic ulcers with cellulitis, right foot. Second peripheral arterial disease. 2. History of abdominal aortic aneurysm with aortoiliac disease. 3. Chronic obstructive pulmonary disease. 4. Underlying dementia. 5. Status post-right hemiparesis following cerebrovascular accident. 6. Hypomagnesemia. 7. Dysphagia, neurogenic, on NG tube feedings. PLAN: I attempted to call patient's daughter over the last several days, and I have been unable to reach her. Will try to reach her again today and discussed with her regarding need for G- tube placement and also above-knee amputation on the right. Dictated By: Santo Mckeon MD /[email or web address]/[email or web address] /Document#: [id number]
--- NOTE | 2017-01-13 18:59 | CONS ---
Date/Time of Note Date/Time of Note DATE: 01/13/17 TIME: 18:56 Assessment/Plan Assessment/Plan Additional Assessment/Plan 1. Dysphagia 2. CVA 3. Nonhealing right heel ulcer 4. Peripheral arterial disease 5. COPD 6. Dementia 7. Coronary artery disease status post stent placement. Plan patient will definitely need G-tube if family is in agreement. Continue present care. Consultation Date/Type/Reason Admit Date/Time Dec 28, 2016 at 10:36 Reason for Consultation Placement of G-tube Hx of Present Illness 86-year-old gentleman [facility] emergency room for the nonhealing of right foot ulcer. Patient is a necrotizing ulcer in the heel of the foot and also has good peripheral vascular disease. He was evaluated by the vascular surgeon and strongly recommended a below-knee amputation. Patient is high risk for aspiration and is being fed through the NG tube. 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 Patient is basically bedridden. Has a history of coronary artery disease with 2 stent placement. Patient is also suffering from dementia and no information can be obtained from him. GI consult was called in for replacement of gastrostomy tube. Respiratory: no complaints Cardiovascular: no complaints Gastrointestinal: no complaints Genitourinary: no complaints Musculoskeletal: no complaints Skin: no complaints Past Surgical History Past Surgical Hx: no surgical history Social History Alcohol Use: none Smoking Status: Former smoker Exam/Review of Systems Vital Signs Vitals Vital Signs Date Time Temp Pulse Resp B/P Pulse Ox O2 Delivery O2 Flow Rate FiO2 01/13/17 16:15 98.6 78 18 136/65 100 01/13/17 14:58 Nasal Cannula 2.0 Intake and Output 01/12/17 01/12/17 01/13/17 15:00 23:00 07:00 Intake Total 100 ml 880 ml 350 ml Output Total 900 ml 820 ml Balance 100 ml -20 ml -470 ml Exam Constitutional: alert, oriented, well developed Psych: nl mood/affect, no complaints Head: atraumatic, normocephalic Eyes: EOMI, PERRL, nl conjunctiva, nl lids, nl sclera ENMT: nl external ears & nose, nl lips & teeth, nl nasal mucosa & septum Neck: non-tender, supple Respiratory: clear to auscultation, normal air movement Cardiovascular: nl pulses, regular rate and rhythm Gastrointestinal: nl liver, spleen, non-tender, soft Musculoskeletal: nl extremities to inspection, nl gait and stance Extremities: normal pulses Neurological: MULTIFOCAL LENS INSPECTOR II-XII intact, nl mental status, nl speech, nl strength Skin: nl turgor, No rash or lesions Lymph: nl lymph nodes Results Result Diagram: 01/13/17 0502 01/13/17 0502 Results 24 hrs Laboratory Tests Test 01/13/17 05:02 01/13/17 05:57 White Blood Count 8.5 Red Blood Count 2.92 #L Hemoglobin 8.1 L Hematocrit 25.3 L Mean Corpuscular Volume 86.6 Mean Corpuscular Hemoglobin 27.7 L Mean Corpuscular Hemoglobin Concent 32.0 Red Cell Distribution Width 16.1 H Platelet Count 235 Mean Platelet Volume 9.6 Neutrophils % 67.1 Lymphocytes % 22.6 Monocytes % 6.9 Eosinophils % 1.9 Basophils % 0.4 Nucleated Red Blood Cells % 0.0 Neutrophils # 5.7 Lymphocytes # 1.9 Monocytes # 0.6 Eosinophils # 0.2 Basophils # 0.0 Nucleated Red Blood Cells # 0.0 Sodium Level 140 Potassium Level 4.5 Chloride Level 99 Carbon Dioxide Level 28 Anion Gap 18 H Blood Urea Nitrogen 20 Creatinine 0.56 L Glucose Level 133 Calcium Level 8.7 Magnesium Level 1.6 L Lab Scanned Report BLOOD TRANSFUSION Medications Medications Current Medications Sodium Biphosphate/ Sodium Phosphate (Fleet Enema) 135 ml PRN [place] ; Start at 21:00 Enoxaparin Sodium (Lovenox) 30 mg DAILY SC Last administered on 01/13/17 10:33 ; Admin Dose 30 MG; Start 12/31/16 at 15:30 IV Flush (NS 10 ml) 10 ml PRN PRN IV IV PROTOCOL; Start 01/04/17 at 17:00 Clonidine (Catapres) 0.1 mg Q4H PRN NGT SBP >170 or DBP >110 Last administered on 01/05/17 23:02; Admin Dose 0.1 MG; Start 01/05/17 at 23:00 Ascorbic Acid (Vitamin C) 500 mg DAILY NGT Last administered on 01/13/17 10:43 ; Admin Dose 500 MG; Start 01/07/17 at 09:12 Calcium/Vitamin D (Oyster Shell/ Vit-D (500/200)) 1 tab DAILY NGT Last administered on 01/13/17 10:31; Admin Dose 1 TAB; Start 01/07/17 at 09:12 Docusate Sodium (Colace Liquid Cup) 100 mg DAILY NGT Last administered on 10:30; Admin Dose 100 MG; Start 01/07/17 at 09:30 Folic Acid (Folic Acid) 1 mg DAILY NGT Last administered on 01/13/17 10:30; Admin Dose 1 MG; Start 01/07/17 at 09:13 Magnesium Hydroxide (Milk Of Mag) 30 ml Q24H PRN NGT CONSTIPATION; Start at 09:14 Mirtazapine (Remeron) 15 mg HS NGT Last administered on 01/12/17 21:07; Admin Dose 15 MG; Start 01/07/17 at 09:14 Multivitamins/ Minerals 1 tab 1 tab DAILY NGT Last administered on 01/13/17 10 :30; Admin Dose 1 TAB; Start 01/07/17 at 09:14 Vancomycin HCl/ Sodium Chloride (Vancocin/NS) 150 ml @ 75 mls/hr Q24H IVPB Last administered on 01/13/17 14:27; Admin Dose 75 MLS/HR; Start 01/12/17 at 15 :00 VEL NEWTON MD Jan 13, 2017 18:59
--- NOTE | 2017-01-13 20:18 | PN ---
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 Patient would need above knee amputations based on the superficial femoral artery occlusions We will discuss with the referring physicians We will proceed with the amputation when family is agreeable Problems: Subjective 24 Hr Interval Summary Constitutional: improved Pain Control: mild Exam/Review of Systems Vital Signs Vitals Vital Signs Date Time Temp Pulse Resp B/P Pulse Ox O2 Delivery O2 Flow Rate FiO2 01/13/17 19:53 99.1 87 18 133/71 100 01/13/17 19:50 2.0 01/13/17 19:50 Nasal Cannula Intake and Output 01/12/17 01/12/17 01/13/17 15:00 23:00 07:00 Intake Total 100 ml 880 ml 350 ml Output Total 900 ml 820 ml Balance 100 ml -20 ml -470 ml Exam ENMT: mucosa pink and moist, nl external ears & nose, nl lips & teeth, nl nasal mucosa & septum Neck: non-tender, supple Respiratory: clear to auscultation, normal air movement Cardiovascular: nl pulses, regular rate and rhythm Results Result Diagram: 01/13/17 0502 01/13/17 0502 AMIRAH GALVEZ MD Jan 13, 2017 20:17
[2017-01-13] MEDS: MIRTAZAPINE 15 MG TAB NGT SCH (22:04)
[2017-01-14] VITALS (15 sets, daily range): BP systolic 107–169; BP diastolic 59–70; PULSE 74–86; RESP 16–20
[2017-01-14] MEDS: ALBUTEROL 0.083% (NEB) 2.5 MG/3 ML AMP HHN SCH ×4 (01:28→19:42)
--- NOTE | 2017-01-14 05:30 | PN ---
DATE: 01/12/2017 SUBJECTIVE DATA: The patient is lethargic. Tolerating NG tube feedings. OBJECTIVE DATA: VITAL SIGNS: Temperature 98.5, blood pressure 128/60, O2 sats 97 percent on 2 L nasal cannula. JVD is not increased. CHEST: Decreased breath sounds at bases with few wheezes. HEART: S1, S2 regular. No [____] gallops. ABDOMEN: Soft, nontender. No hepatosplenomegaly. EXTREMITIES: No edema. LABORATORY AND DIAGNOSTIC DATA: I and O: 980 in, output is 1400. Hematocrit 21.1, WBC count 9.6, platelet count 229,000. Sodium 138, potassium 4.2, BUN 19, creatinine 0.57. IMPRESSION: 1. Severe anemia, rule out underlying gastrointestinal bleed. 2. Necrotic ulcers with cellulitis of the right foot secondary to peripheral arterial disease. 3. History of abdominal aortic aneurysm. 4. Chronic obstructive pulmonary disease. 5. Dementia. 6. Status post right hemiparesis. 7. Displaced fracture of the right humerus, chronic. PLAN: Transfuse 1 unit of packed cells. I had left message yesterday for patient's daughter to call me back. We will call her again today to discuss further treatment, including consideration of G-tube placement as the patient is definitely aspirating and consider right above-knee amputation. Dictated By: Santo Mckeon MD /[email or web address]/diana /Document#: [id number]
--- NOTE | 2017-01-14 08:12 | PN ---
DATE: 01/02/2017 SUBJECTIVE: The patient continues to be lethargic. No shortness of breath. No fever or chills. OBJECTIVE: GENERAL: Lethargic. VITALS: Temperature 98.8, blood pressure 140/69, O2 sat 90% on 2 liters nasal cannula. Mild pallor with cyanosis. CHEST: Clear. HEART: S1, S2. EXTREMITIES: No edema. LABORATORY: WBC count is 8.4, hematocrit 33.1, platelet count 107,000. Sodium 137, potassium 2.3, BUN 4, creatinine 0.52. Magnesium 1.4. Dr. Romo's consultation is greatly appreciated. Doppler study is pending. IMPRESSION: 1. Vascular ulcers, necrotic, right foot. 2. Peripheral vascular disease. 3. History of abdominal aortic aneurysm. 4. Chronic obstructive pulmonary disease. 5. Status post cerebrovascular accident with right hemiparesis. 6. Coronary artery disease status post several previous percutaneous transluminal coronary angioplasties. PLAN: The patient is still NPO because of his high-risk of aspiration. We will discuss with speech therapy again tomorrow. IV antibiotics for now. Follow recommendations by Dr. Romo. ADDENDUM: Replace magnesium and potasium. Recheck the levels in the a.m. Dictated By: Santo Mckeon MD /[email or web address]/raiza /Document#: [id number]
--- NOTE | 2017-01-14 08:19 | PN ---
DATE: SUBJECTIVE: The patient is more responsive today. OBJECTIVE: VITALS: Temperature 97.7, blood pressure 150/75, O2 sat 100 percent on nasal cannula 2 L. HEENT: Mild pallor without cyanosis. Tongue is moist. NECK: Supple. No thyromegaly. No lymphadenopathy. CHEST: Clear. ABDOMEN: Soft, nontender. No hepatosplenomegaly. EXTREMITIES: No edema. LABORATORY: WBC count 8.0, hematocrit 30.7, sodium 138, potassium 3.3, BUN 3, creatinine 0.53. Magnesium 2.4. IMPRESSION: 1. Poor nutrition status. The patient has dysphagia. Will follow with speech therapy. Per patient's daughter, does not want to have any tube feeding. 2. Right foot necrotic ulcers, methicillin-resistant Staphylococcus aureus. 3. Urinary tract infection with E. Coli, extended-spectrum beta- lactamase. 4. Chronic obstructive pulmonary disease. 5. Coronary artery disease. PLAN: We will follow recommendations of Dr. Romo. Evaluation by speech therapy. Consider a PICC line for poor IV access. Dictated By: Santo Mckeon MD /[email or web address]/raiza /Document#: [id number]
--- NOTE | 2017-01-14 08:39 | PN ---
DATE: 01/06/2017 SUBJECTIVE DATA: The patient is lethargic. Tolerating NG tube feedings. OBJECTIVE DATA: VITAL SIGNS: Temperature 97.7, blood pressure 130/81, O2 sat 96 percent on 2 L nasal cannula. RESPIRATORY: Decreased breath sounds at bases. CARDIAC: S1, S2. No definite gallops. ABDOMEN: Abdomen is soft, nontender. No hepatosplenomegaly. EXTREMITIES: Contractures noted. Right hemiparesis. Right foot ulcers. ASSESSMENT AND PLAN: Dr. Powers's medical consultation recommendations noted regarding the need for above-knee amputation. Will discuss with patient's daughter. Recheck labs in a.m. Dictated By: Santo Mckeon MD /marycruz/jerrod /Document#: [id number]
--- NOTE | 2017-01-14 09:06 | PN ---
DATE: 01/09/2017 SUBJECTIVE: The patient is more responsive today. Tolerating NG tube feedings. OBJECTIVE DATA: VITAL SIGNS: Temperature 98.3, blood pressure 108/56, and O2 sat 98 percent on 2 L nasal cannula. SKIN: Mild pallor with cyanosis. HEENT: Tongue is moist. NECK: Supple. No thyromegaly, bruits, or lymphadenopathy. CHEST: Clear anteriorly. HEART: S1, S2. No murmurs, rubs, or gallops. EXTREMITIES: No edema. LABORATORY: WBC count yesterday was 10.8, BUN today is 22, and creatinine 0.6. IMPRESSION: 1. Necrotic ulcers right foot secondary to peripheral artery disease. 2. Chronic obstructive pulmonary disease (COPD). 3. Coronary artery disease. 4. History of abdominal aortic aneurysm. 5. Hypertension. 6. Status post cerebrovascular accident (CVA). PLAN: We will recheck the labs in a.m. We will discuss with the patient's daughter regarding the recommendation to Dr. Romo, which would be above-knee amputation. Dictated By: Santo Mckeon MD /[email or web address]/shreya /Document#: [id number]
--- NOTE | 2017-01-14 09:06 | PN ---
DATE: 01/07/2017 SUBJECTIVE DATA: The patient is lethargic with a congested cough. OBJECTIVE DATA: The patient appears pale. VITAL SIGNS: Temperature 97.8, blood pressure 145/66, O2 sat 96 percent on 2 L nasal cannula. CARDIAC: CV is not RESPIRATORY: Revealed few rhonchi heard at the bases anteriorly. HEART: S1, S2, no rubs or gallops. EXTREMITIES: No edema. LABORATORY VALUES: WBC count 8.9, hematocrit 32.1, platelet count 202. Sodium 139, potassium 5.5, BUN 12, creatinine 0.59 chief, glucose 119. IMPRESSION: 1. Right foot ulcers, infection on the . 2. COPD. 3. Coronary artery disease. 4. Urinary tract infection. PLAN: Continue IV antibiotics. Will obtain chest x-ray to rule out pneumonia and discontinue potassium in IV. Cut down IV fluids. Give 1 dose of Lasix IV push. I discussed with the patient's daughter. Dictated By: Santo Mckeon MD /marycruz/ /Document#: [id number]
--- NOTE | 2017-01-14 09:12 | PN ---
DATE: 01/10/2017 SUBJECTIVE DATA: The patient is lethargic, shortness of breath improved. Patient nonverbal. OBJECTIVE DATA: VITAL SIGNS: Temperature 98.2, blood pressure 126/67, and O2 saturation 95 percent on 2 L nasal cannula. ENT: A few wheezes heard anteriorly. HEART: S1, S2. No rubs or gallops. ABDOMEN: Soft, nontender. No hepatosplenomegaly. EXTREMITIES: Right foot wound is unchanged. LABORATORY AND DIAGNOSTIC DATA: WBC count 13.4, hematocrit 30.1, and platelet count 217,000. Sodium 141, potassium 4.4, BUN 21, creatinine 0.68, and magnesium 1.9. IMPRESSION: 1. Acute asthmatic bronchitis, improved. 2. Right foot necrotic ulcers on a vascular basis secondary to peripheral artery disease (PAD). 3. Status post cerebrovascular accident (CVA) with right hemiparesis. 4. Hypertension. 5. Coronary artery disease status post PTCA. PLAN: Continue IV antibiotics. Repeat urine culture. We will discuss with the patient's daughter regarding his condition. Discussed with her regarding Dr. Romo's recommendations. Dictated By: Santo Mckeon MD /[email or web address]/shreya /Document#: [id number]
[2017-01-14] MEDS: CALCIUM/VITAMIN D (500/200) TAB NGT SCH (09:58)
[2017-01-14] MEDS: DOCUSATE SODIUM 10 MG/ML (10ML CUP) NGT SCH (09:58)
[2017-01-14] MEDS: FOLIC ACID 1 MG TAB NGT SCH (09:58)
[2017-01-14] MEDS: ASCORBIC ACID 500 MG TAB NGT SCH (09:59)
[2017-01-14] MEDS: ENOXAPARIN 30 MG/0.3 ML SYG SC SCH (10:11)
--- NOTE | 2017-01-14 11:58 | CONS ---
Date/Time of Note Date/Time of Note DATE: 01/14/17 TIME: 11:56 Assessment/Plan Assessment/Plan Chief Complaint/Hosp Course 86-year-old gentleman transferred from halfway to the emergency room for the nonhealing of right foot ulcer. Patient is a necrotizing ulcer in the heel of the foot and also has good peripheral vascular disease. He was evaluated by the vascular surgeon and strongly recommended a below-knee amputation. Patient is high risk for aspiration and is being fed through the NG tube. 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 Patient is basically bedridden. Has a history of coronary artery disease with 2 stent placement. Patient is also suffering from dementia and no information can be obtained from him. GI consult was called in for replacement of gastrostomy tube. Problems: Additional Assessment/Plan Additional Assessment/Plan 1. Dysphagia 2. CVA 3. Nonhealing right heel ulcer 4. Peripheral arterial disease 5. COPD 6. Dementia 7. Coronary artery disease status post stent placement. Plan patient will definitely need G-tube if family is in agreement. Continue present care. Consultation Date/Type/Reason Admit Date/Time Dec 28, 2016 at 10:36 Initial Consult Date 01/01/17 24 HR Interval Summary Subjective hx not possible: pt non-verbal Exam/Review of Systems Vital Signs Vitals Vital Signs Date Time Temp Pulse Resp B/P Pulse Ox O2 Delivery O2 Flow Rate FiO2 01/14/17 08:07 98.8 81 18 107/59 100 01/14/17 08:03 2.0 01/14/17 08:01 Nasal Cannula Intake and Output 01/13/17 01/13/17 01/14/17 14:59 22:59 06:59 Intake Total 100 ml 830 ml 730 ml Output Total 1050 ml 700 ml Balance 100 ml -220 ml 30 ml Exam Constitutional: alert, oriented, well developed Psych: nl mood/affect, no complaints Head: atraumatic, normocephalic Eyes: EOMI, PERRL, nl conjunctiva, nl lids, nl sclera ENMT: nl external ears & nose, nl lips & teeth, nl nasal mucosa & septum Neck: non-tender, supple Respiratory: clear to auscultation, normal air movement Cardiovascular: nl pulses, regular rate and rhythm Gastrointestinal: nl liver, spleen, non-tender, soft Musculoskeletal: nl extremities to inspection, nl gait and stance Extremities: normal pulses Neurological: STUNNER II-XII intact, nl mental status, nl speech, nl strength Skin: nl turgor, No rash or lesions Lymph: nl lymph nodes Results Result Diagram: 01/13/17 0502 01/13/17 0502 Medications Medications Current Medications Sodium Biphosphate/ Sodium Phosphate (Fleet Enema) 135 ml PRN [place] ; Start at 21:00 Enoxaparin Sodium (Lovenox) 30 mg DAILY SC Last administered on 01/14/17 10:11 ; Admin Dose 30 MG; Start 12/31/16 at 15:30 IV Flush (NS 10 ml) 10 ml PRN PRN IV IV PROTOCOL; Start 01/04/17 at 17:00 Clonidine (Catapres) 0.1 mg Q4H PRN NGT SBP >170 or DBP >110 Last administered on 01/05/17 23:02; Admin Dose 0.1 MG; Start 01/05/17 at 23:00 Ascorbic Acid (Vitamin C) 500 mg DAILY NGT Last administered on 01/14/17 09:59 ; Admin Dose 500 MG; Start 01/07/17 at 09:12 Calcium/Vitamin D (Oyster Shell/ Vit-D (500/200)) 1 tab DAILY NGT Last administered on 01/14/17 09:58; Admin Dose 1 TAB; Start 01/07/17 at 09:12 Docusate Sodium (Colace Liquid Cup) 100 mg DAILY NGT Last administered on 09:58; Admin Dose 100 MG; Start 01/07/17 at 09:30 Folic Acid (Folic Acid) 1 mg DAILY NGT Last administered on 01/14/17 09:58; Admin Dose 1 MG; Start 01/07/17 at 09:13 Magnesium Hydroxide (Milk Of Mag) 30 ml Q24H PRN NGT CONSTIPATION; Start at 09:14 Mirtazapine 15 mg 15 mg HS NGT Last administered on 01/13/17 22:04; Admin Dose 15 MG; Start 01/07/17 at 09:14 Vancomycin HCl/ Sodium Chloride (Vancocin/NS) 150 ml @ 75 mls/hr Q24H IVPB Last administered on 7/27/17at 14:27; Admin Dose 75 MLS/HR; Start 01/12/17 at 15 :00 Multivitamins (Multivitamin) 30 ml DAILY GTB ; Start 01/14/17 at 10:30 VEL NEWTON MD Jan 14, 2017 11:58
--- NOTE | 2017-01-14 13:38 | PN ---
Date/Time of Note Date/Time of Note DATE: 01/14/17 TIME: 13:37 Assessment/Plan Lines/Catheters IV Catheter Type (from Nrsg): PICC Line Arnett in Place (from Nrsg): Yes Assessment/Plan Chief Complaint/Hosp Course Assessment/Plan Chief Complaint/Hosp Course Peripheral vascular disease Problems: Additional Assessment/Plan Patient is nonambulatory at this time and contracted Patient has abnormal arterial studies indicative of possible aortobiiliac disease patient will need an amputation 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 Patient would need above knee amputations based on the superficial femoral artery occlusions We will discuss with the referring physicians We will proceed with the amputation when family is agreeable Problems: Subjective 24 Hr Interval Summary Constitutional: improved Pain Control: mild Exam/Review of Systems Vital Signs Vitals Vital Signs Date Time Temp Pulse Resp B/P Pulse Ox O2 Delivery O2 Flow Rate FiO2 01/14/17 08:07 98.8 81 18 107/59 100 01/14/17 08:03 2.0 01/14/17 08:01 Nasal Cannula Intake and Output 01/13/17 01/13/17 01/14/17 15:00 23:00 07:00 Intake Total 100 ml 830 ml 730 ml Output Total 1050 ml 700 ml Balance 100 ml -220 ml 30 ml Exam Neck: non-tender, supple Respiratory: clear to auscultation, normal air movement, No congested cough, No crackles/rales, No diminished breath sounds, No intercostal retraction, No labored breathing, No other, No respirations, No tactile fremitus, No wheezing Cardiovascular: nl pulses, regular rate and rhythm Gastrointestinal: nl liver, spleen, non-tender, soft Results Result Diagram: 01/13/17 0502 01/13/17 0502 AMIRAH GALVEZ MD Jan 14, 2017 13:38
[2017-01-14] MEDS: MULTIVITAMINS 30 ML CUP GTB SCH (14:58)
[2017-01-14] MEDS: VANCOMYCIN 750 MG in SOD CHLORIDE 0.9% 150 ML IVPB SCH (15:05)
[2017-01-14] MEDS ORDERED: MAGNESIUM SULFATE 3 GM in SOD CHLORIDE 0.9% 100 ML IVPB ONE (16:30)
[2017-01-14] MEDS: MIRTAZAPINE 15 MG TAB NGT SCH (21:36)
[2017-01-15] VITALS (14 sets, daily range): BP systolic 111–158; BP diastolic 57–85; PULSE 82–94; RESP 17–20
[2017-01-15] MEDS: ALBUTEROL 0.083% (NEB) 2.5 MG/3 ML AMP HHN SCH ×4 (01:38→19:57)
[2017-01-15 06:04] LABS: BASOPHILS % 0.5 % (0.0-2.0); EOSINOPHILS # 0.2 10^3/ul (0.0-0.5); EOSINOPHILS % 2.2 % (0.0-7.0); HEMATOCRIT 30.2 % (42.0-52.0); HEMOGLOBIN 9.7 g/dl (14.0-18.0); LYMPHOCYTES # 1.7 10^3/ul (0.8-2.9); LYMPHOCYTES % 20.9 % (15.0-51.0); MEAN CORPUSCULAR HGB CONC 32.1 g/dl (32.0-37.0); MEAN CORPUSCULAR VOLUME 87.3 fl (82.0-101.0); MEAN PLATELET VOLUME 9.7 fl (7.4-10.4); MONOCYTE # 0.6 10^3/ul (0.3-0.9); NEUTROPHIL # 5.5 10^3/ul (1.6-7.5); NEUTROPHILS % 67.4 % (39.0-77.0); PLATELET COUNT 244 10^3/UL (140-415); RED BLOOD COUNT 3.46 10^6/ul (4.70-6.10); RED CELL DISTRIBUTION WIDTH 15.7 % (11.5-14.5); WHITE BLOOD COUNT 8.2 10^3/ul (4.8-10.8)
[2017-01-15 06:20] LABS: CALCIUM 8.7 mg/dl (8.4-10.2); CREATININE 0.58 mg/dl (0.61-1.24); MAGNESIUM 2.6 mg/dl (1.7-2.5); POTASSIUM 4.3 mmol/L (3.5-5.1)
[2017-01-15] MEDS: DOCUSATE SODIUM 10 MG/ML (10ML CUP) NGT SCH (09:00)
[2017-01-15] MEDS: CALCIUM/VITAMIN D (500/200) TAB NGT SCH (09:35)
[2017-01-15] MEDS: ASCORBIC ACID 500 MG TAB NGT SCH (09:35)
[2017-01-15] MEDS: FOLIC ACID 1 MG TAB NGT SCH (09:35)
[2017-01-15] MEDS: MULTIVITAMINS 30 ML CUP GTB SCH (09:35)
[2017-01-15] MEDS: ENOXAPARIN 30 MG/0.3 ML SYG SC SCH (09:50)
--- NOTE | 2017-01-15 12:46 | CONS ---
Date/Time of Note Date/Time of Note DATE: 01/15/17 TIME: 12:45 Assessment/Plan Assessment/Plan Chief Complaint/Hosp Course 86-year-old gentleman [facility] to the emergency room for the nonhealing of right foot ulcer. Patient is a necrotizing ulcer in the heel of the foot and also has good peripheral vascular disease. He was evaluated by the vascular surgeon and strongly recommended a below-knee amputation. Patient is high risk for aspiration and is being fed through the NG tube. 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 Patient is basically bedridden. Has a history of coronary artery disease with 2 stent placement. Patient is also suffering from dementia and no information can be obtained from him. GI consult was called in for replacement of gastrostomy tube. Problems: Additional Assessment/Plan stent placement. Patient is also suffering from dementia and no information can be obtained from him. GI consult was called in for replacement of gastrostomy tube. Problems: Additional Assessment/Plan Additional Assessment/Plan 1. Dysphagia 2. CVA 3. Nonhealing right heel ulcer 4. Peripheral arterial disease 5. COPD 6. Dementia 7. Coronary artery disease status post stent placement. Plan patient will definitely need G-tube if family is in agreement. Continue present care. Left a message with family for the consent regarding the G tube Consultation Date/Type/Reason Admit Date/Time Dec 28, 2016 at 10:36 Initial Consult Date 01/01/17 24 HR Interval Summary Subjective hx not possible: pt non-verbal Constitutional: no complaints Exam/Review of Systems Vital Signs Vitals Vital Signs Date Time Temp Pulse Resp B/P Pulse Ox O2 Delivery O2 Flow Rate FiO2 01/15/17 10:16 98.2 102 18 156/71 100 01/15/17 10:15 Nasal Cannula 2.0 01/15/17 08:29 28 Intake and Output 01/14/17 01/14/17 01/15/17 15:00 23:00 07:00 Intake Total 150 ml 0 ml Output Total 600 ml Balance 150 ml -600 ml Exam Constitutional: alert, oriented, well developed Psych: nl mood/affect, no complaints Head: atraumatic, normocephalic Eyes: EOMI, PERRL, nl conjunctiva, nl lids, nl sclera ENMT: nl external ears & nose, nl lips & teeth, nl nasal mucosa & septum Neck: non-tender, supple Respiratory: clear to auscultation, normal air movement Cardiovascular: nl pulses, regular rate and rhythm Gastrointestinal: nl liver, spleen, non-tender, soft Musculoskeletal: nl extremities to inspection, nl gait and stance Extremities: normal pulses Neurological: SCOURING PADS SUPERVISOR II-XII intact, nl mental status, nl speech, nl strength Skin: nl turgor, No rash or lesions Lymph: nl lymph nodes Results Result Diagram: 01/15/1752901/15/17 0530 Results 24 hrs Laboratory Tests Test 01/15/17 05:30 White Blood Count 8.2 Red Blood Count 3.46 L Hemoglobin 9.7 L Hematocrit 30.2 L Mean Corpuscular Volume 87.3 Mean Corpuscular Hemoglobin 28.0 L Mean Corpuscular Hemoglobin Concent 32.1 Red Cell Distribution Width 15.7 H Platelet Count 244 Mean Platelet Volume 9.7 Neutrophils % 67.4 Lymphocytes % 20.9 Monocytes % 7.0 Eosinophils % 2.2 Basophils % 0.5 Nucleated Red Blood Cells % 0.0 Neutrophils # 5.5 Lymphocytes # 1.7 Monocytes # 0.6 Eosinophils # 0.2 Basophils # 0.0 Nucleated Red Blood Cells # 0.0 Sodium Level 139 Potassium Level 4.3 Chloride Level 99 Carbon Dioxide Level 30 Anion Gap 14 Blood Urea Nitrogen 23 H Creatinine 0.58 L Glucose Level 160 Calcium Level 8.7 Magnesium Level 2.6 H Medications Medications Current Medications Sodium Biphosphate/ Sodium Phosphate (Fleet Enema) 135 ml PRN [place] ; Start at 21:00 Enoxaparin Sodium (Lovenox) 30 mg DAILY SC Last administered on 01/15/17 09:50 ; Admin Dose 30 MG; Start 12/31/16 at 15:30 IV Flush (NS 10 ml) 10 ml PRN PRN IV IV PROTOCOL; Start 01/04/17 at 17:00 Clonidine (Catapres) 0.1 mg Q4H PRN NGT SBP >170 or DBP >110 Last administered on 01/05/17 23:02; Admin Dose 0.1 MG; Start 01/05/17 at 23:00 Ascorbic Acid (Vitamin C) 500 mg DAILY NGT Last administered on 01/15/17 09:35 ; Admin Dose 500 MG; Start 01/07/17 at 09:12 Calcium/Vitamin D (Oyster Shell/ Vit-D (500/200)) 1 tab DAILY NGT Last administered on 01/15/17 09:35; Admin Dose 1 TAB; Start 01/07/17 at 09:12 Docusate Sodium (Colace Liquid Cup) 100 mg DAILY NGT Last administered on 09:00; Admin Dose 100 MG; Start 01/07/17 at 09:30 Folic Acid (Folic Acid) 1 mg DAILY NGT Last administered on 01/15/17 09:35; Admin Dose 1 MG; Start 01/07/17 at 09:13 Magnesium Hydroxide (Milk Of Mag) 30 ml Q24H PRN NGT CONSTIPATION; Start at 09:14 Mirtazapine 15 mg 15 mg HS NGT Last administered on 01/14/17 21:36; Admin Dose 15 MG; Start 01/07/17 at 09:14 Vancomycin HCl/ Sodium Chloride (Vancocin/NS) 150 ml @ 75 mls/hr Q24H IVPB Last administered on 01/14/17 15:05; Admin Dose 75 MLS/HR; Start 01/12/17 at 15 :00 Multivitamins (Multivitamin) 30 ml DAILY GTB Last administered on 01/15/17 09: 35; Admin Dose 30 ML; Start 01/14/17 at 10:30 Miscellaneous Information (*Rx Drug Level Order Reminder*) VANCOMYCIN TROUGH AT 1400 ONCE ONCE XX ; Start 01/16/17 at 14:00; Stop 01/16/17 at 14:01 VEL NEWTON MD Jan 15, 2017 12:46
[2017-01-15] MEDS: VANCOMYCIN 750 MG in SOD CHLORIDE 0.9% 150 ML IVPB SCH (14:47)
--- NOTE | 2017-01-15 19:43 | PN ---
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 Patient would need above knee amputations based on the superficial femoral artery occlusions We will discuss with the referring physicians We will proceed with the amputation when family is agreeable Problems: Subjective 24 Hr Interval Summary Constitutional: improved Pain Control: mild Exam/Review of Systems Vital Signs Vitals Vital Signs Date Time Temp Pulse Resp B/P Pulse Ox O2 Delivery O2 Flow Rate FiO2 01/15/17 19:28 99.3 80 18 134/85 99 01/15/17 18:00 Nasal Cannula 2.0 01/15/17 17:18 28 Intake and Output 01/14/17 01/14/17 01/15/17 15:00 23:00 07:00 Intake Total 150 ml 0 ml Output Total 600 ml Balance 150 ml -600 ml Exam ENMT: mucosa pink and moist, nl external ears & nose, nl lips & teeth, nl nasal mucosa & septum Neck: non-tender, supple Respiratory: clear to auscultation, normal air movement Cardiovascular: nl pulses, regular rate and rhythm Results Result Diagram: 01/15/17 0530 01/15/17 0530 AMIRAH GALVEZ MD Jan 15, 2017 19:43
[2017-01-15] MEDS: MIRTAZAPINE 15 MG TAB NGT SCH (21:00)
[2017-01-16] VITALS (10 sets, daily range): BP systolic 123–151; BP diastolic 60–76; PULSE 63–100; RESP 18–20
[2017-01-16] MEDS: ALBUTEROL 0.083% (NEB) 2.5 MG/3 ML AMP HHN SCH ×4 (01:18→20:14)
--- NOTE | 2017-01-16 06:52 | PN ---
DATE: 01/15/2017 SUBJECTIVE: The patient is more responsive today. OBJECTIVE DATA: VITAL SIGNS: Temperature 98.8, blood pressure 152/67, O2 sat 90 percent on 2 L nasal cannula. CHEST: Clear anteriorly. HEART: S1, S2. No murmurs, rubs or gallops. EXTREMITIES: No edema. Wounds unchanged. LABORATORY: WBC 8.2, hematocrit 30.2, platelet count 244,000. Sodium 139, potassium 4.3, magnesium 2.6. IMPRESSION: 1. Right foot necrotic ulcers secondary to peripheral artery disease. 2. Acute asthmatic bronchitis resolved. 3. Status post cerebrovascular accident with right hemiparesis. 4. Hypertension. 5. Coronary artery disease. 6. Chronic right shoulder dislocation. 7. Dysphagia on NG-tube feedings. PLAN: I have discussed the case with Dr. Nielson, who would be discussing with the patient's regarding G-tube placement and will discuss with patient's daughter again regarding his progress. Dictated By: Santo Mckeon MD /[email or web address]/rula /Document#: [id number]
[2017-01-16] MEDS: CALCIUM/VITAMIN D (500/200) TAB NGT SCH (08:58)
[2017-01-16] MEDS: FOLIC ACID 1 MG TAB NGT SCH (08:58)
[2017-01-16] MEDS: MULTIVITAMINS 30 ML CUP GTB SCH (08:58)
[2017-01-16] MEDS: ASCORBIC ACID 500 MG TAB NGT SCH (08:58)
[2017-01-16] MEDS: DOCUSATE SODIUM 10 MG/ML (10ML CUP) NGT SCH (08:58)
[2017-01-16] MEDS: ENOXAPARIN 30 MG/0.3 ML SYG SC SCH (09:01)
--- NOTE | 2017-01-16 13:30 | CONS ---
Date/Time of Note Date/Time of Note DATE: 01/16/17 TIME: 13:28 Assessment/Plan Assessment/Plan Chief Complaint/Hosp Course 86-year-old gentleman transferred from correction to the emergency room for the nonhealing of right foot ulcer. Patient is a necrotizing ulcer in the heel of the foot and also has good peripheral vascular disease. He was evaluated by the vascular surgeon and strongly recommended a below-knee amputation. Patient is high risk for aspiration and is being fed through the NG tube. 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 Patient is basically bedridden. Has a history of coronary artery disease with 2 stent placement. Patient is also suffering from dementia and no information can be obtained from him. GI consult was called in for replacement of gastrostomy tube. Problems: Additional Assessment/Plan Additional Assessment/Plan stent placement. Patient is also suffering from dementia and no information can be obtained from him. GI consult was called in for replacement of gastrostomy tube. Problems: Additional Assessment/Plan Additional Assessment/Plan 1. Dysphagia 2. CVA 3. Nonhealing right heel ulcer 4. Peripheral arterial disease 5. COPD 6. Dementia 7. Coronary artery disease status post stent placement. Plan patient will definitely need G-tube if family is in agreement. Continue present care. Discussed with her daughter and has agreed for the G-tube. Educated her regarding all the complication anesthetic risk she understood and has agreed for the procedure Consultation Date/Type/Reason Admit Date/Time Dec 28, 2016 at 10:36 Initial Consult Date 01/01/17 24 HR Interval Summary Subjective hx not possible: pt non-verbal Constitutional: improved Exam/Review of Systems Vital Signs Vitals Vital Signs Date Time Temp Pulse Resp B/P Pulse Ox O2 Delivery O2 Flow Rate FiO2 01/16/17 12:00 99.0 77 18 134/73 96 Nasal Cannula 2.0 01/15/17 22:55 27 Intake and Output 01/15/17 01/15/17 01/16/17 15:00 23:00 07:00 Intake Total 880 ml 740 ml Output Total 700 ml 750 ml Balance 180 ml -10 ml Exam Constitutional: alert, oriented, well developed Psych: nl mood/affect, no complaints Head: atraumatic, normocephalic Eyes: EOMI, PERRL, nl conjunctiva, nl lids, nl sclera ENMT: nl external ears & nose, nl lips & teeth, nl nasal mucosa & septum Neck: non-tender, supple Respiratory: clear to auscultation, normal air movement Cardiovascular: nl pulses, regular rate and rhythm Gastrointestinal: nl liver, spleen, non-tender, soft Musculoskeletal: nl extremities to inspection, nl gait and stance Extremities: normal pulses Neurological: REBRANDER II-XII intact, nl mental status, nl speech, nl strength Skin: nl turgor, No rash or lesions Lymph: nl lymph nodes Results Result Diagram: 01/15/1752901/15/17529 Medications Medications Current Medications Sodium Biphosphate/ Sodium Phosphate (Fleet Enema) 135 ml PRN [place] ; Start at 21:00 Enoxaparin Sodium (Lovenox) 30 mg DAILY SC Last administered on 01/16/17 09:01 ; Admin Dose 30 MG; Start 12/31/16 at 15:30 IV Flush (NS 10 ml) 10 ml PRN PRN IV IV PROTOCOL; Start 01/04/17 at 17:00 Clonidine (Catapres) 0.1 mg Q4H PRN NGT SBP >170 or DBP >110 Last administered on 01/05/17 23:02; Admin Dose 0.1 MG; Start 01/05/17 at 23:00 Ascorbic Acid (Vitamin C) 500 mg DAILY NGT Last administered on 01/16/17 08:58 ; Admin Dose 500 MG; Start 01/07/17 at 09:12 Calcium/Vitamin D (Oyster Shell/ Vit-D (500/200)) 1 tab DAILY NGT Last administered on 01/16/17 08:58; Admin Dose 1 TAB; Start 01/07/17 at 09:12 Docusate Sodium (Colace Liquid Cup) 100 mg DAILY NGT Last administered on 08:58; Admin Dose 100 MG; Start 01/07/17 at 09:30 Folic Acid (Folic Acid) 1 mg DAILY NGT Last administered on 01/16/17 08:58; Admin Dose 1 MG; Start 01/07/17 at 09:13 Magnesium Hydroxide (Milk Of Mag) 30 ml Q24H PRN NGT CONSTIPATION; Start at 09:14 Mirtazapine 15 mg 15 mg HS NGT Last administered on 01/15/17 21:00; Admin Dose 15 MG; Start 01/07/17 at 09:14 Vancomycin HCl/ Sodium Chloride (Vancocin/NS) 150 ml @ 75 mls/hr Q24H IVPB Last administered on 01/15/17 14:47; Admin Dose 75 MLS/HR; Start 01/12/17 at 15 :00 Multivitamins (Multivitamin) 30 ml DAILY GTB Last administered on 01/16/17 08: 58; Admin Dose 30 ML; Start 01/14/17 at 10:30 Miscellaneous Information (*Rx Drug Level Order Reminder*) VANCOMYCIN TROUGH AT 1400 ONCE ONCE XX ; Start 01/16/17 at 14:00; Stop 01/16/17 at 14:01 VEL NEWTON MD Jan 16, 2017 13:30
--- NOTE | 2017-01-16 14:45 | PN ---
Date/Time of Note Date/Time of Note DATE: 01/16/17 TIME: 14:45 Assessment/Plan Lines/Catheters IV Catheter Type (from Nrsg): PICC Line Arnett in Place (from Nrsg): Yes Assessment/Plan Chief Complaint/Hosp Course Assessment/Plan Chief Complaint/Hosp Course Peripheral vascular disease Problems: Additional Assessment/Plan Patient is nonambulatory at this time and contracted Patient has abnormal arterial studies indicative of possible aortobiiliac disease patient will need an amputation 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 Patient would need above knee amputations based on the superficial femoral artery occlusions We will discuss with the referring physicians We will proceed with the amputation when family is agreeable Problems: Subjective 24 Hr Interval Summary Constitutional: improved Pain Control: mild Exam/Review of Systems Vital Signs Vitals Vital Signs Date Time Temp Pulse Resp B/P Pulse Ox O2 Delivery O2 Flow Rate FiO2 01/16/17 13:48 75 16 99 Nasal Cannula 2.0 01/16/17 12:00 99.0 134/73 01/15/17 22:55 27 Intake and Output 01/15/17 01/15/17 01/16/17 14:59 22:59 06:59 Intake Total 880 ml 740 ml Output Total 700 ml 750 ml Balance 180 ml -10 ml Exam Eyes: EOMI, nl conjunctiva, nl lids, nl sclera ENMT: mucosa pink and moist, nl external ears & nose, nl lips & teeth, nl nasal mucosa & septum Neck: non-tender, supple Respiratory: clear to auscultation, normal air movement Cardiovascular: nl pulses, regular rate and rhythm Results Result Diagram: 01/15/17 0530 01/15/17 0530 AMIRAH GALVEZ MD Jan 16, 2017 14:45
[2017-01-16] MEDS: VANCOMYCIN 750 MG in SOD CHLORIDE 0.9% 150 ML IVPB SCH (15:26)
[2017-01-16] MEDS: MIRTAZAPINE 15 MG TAB NGT SCH (20:37)
[2017-01-17] VITALS (17 sets, daily range): BP systolic 12–152; BP diastolic 59–93; PULSE 76–98; RESP 18–23
[2017-01-17] MEDS: ALBUTEROL 0.083% (NEB) 2.5 MG/3 ML AMP HHN SCH ×4 (01:13→20:13)
[2017-01-17 06:35] LABS: CREATININE 0.57 mg/dl (0.61-1.24)
[2017-01-17] MEDS: MULTIVITAMINS 30 ML CUP GTB SCH (08:19)
[2017-01-17] MEDS: ASCORBIC ACID 500 MG TAB NGT SCH (08:20)
[2017-01-17] MEDS: CALCIUM/VITAMIN D (500/200) TAB NGT SCH (08:20)
[2017-01-17] MEDS: FOLIC ACID 1 MG TAB NGT SCH (08:20)
[2017-01-17] MEDS: DOCUSATE SODIUM 10 MG/ML (10ML CUP) NGT SCH (08:20)
--- NOTE | 2017-01-17 08:22 | PN ---
DATE: 01/16/2017 SUBJECTIVE: The patient is lethargic presently. OBJECTIVE DATA: VITAL SIGNS: Temperature 98.8, blood pressure 129/64, O2 sats 99% on 2 liters nasal cannula. CHEST: Clinically clear. HEART: S1, S2. No gallops. EXTREMITIES: No edema. ASSESSMENT AND PLAN: Tolerating NG tube feedings well. Dr. Nielson's recommendations noted and appreciated and we will proceed with G-tube placement. Will discuss with the patient's daughter, after the G-tube is placed. Dictated By: Santo Mckeon MD /[email or web address]/ss /Document#: [id number]
[2017-01-17] MEDS: ENOXAPARIN 30 MG/0.3 ML SYG SC SCH (08:49)
--- NOTE | 2017-01-17 09:57 | PN ---
DATE: SUBJECTIVE: The patient is lethargic, shortness of breath has significantly improved. OBJECTIVE: VITALS: Temperature 99.2, blood pressure 137/63, O2 sat 97 percent on 2 L nasal cannula. HEENT: Mild pallor without cyanosis. Tongue is coated, dry. NECK: Supple. CHEST: Clear anteriorly. HEART: S1, S2. No definite gallops. EXTREMITIES: No edema. Homans negative. DIAGNOSTICS: Repeat urine cultures negative after 24 hours. IMPRESSION: 1. Right foot necrotic ulcers secondary to peripheral vascular disease. 2. Coronary artery disease. 3. Chronic obstructive pulmonary disease. 4. Status post severe right hemiparesis. 5. History of abdominal aortic aneurysm. 6. Hyperlipidemia. 7. Hypertension. 8. Dementia. 9. Urinary tract infection has resolved. PLAN: We will DC imipenem. We will discuss with the patient's daughter again regarding further care which includes above-knee amputation. Dictated By: Santo Mckeon MD /[email or web address]/raiza /Document#: [id number]
--- NOTE | 2017-01-17 11:24 | PN ---
DATE: SUBJECTIVE: The patient is lethargic, nonverbal. OBJECTIVE: VITAL SIGNS: Temperature 98.4, blood pressure 182/74, respiratory 20 per minute, O2 sat 100 percent on 2 L nasal cannula. Tolerating NG tube feedings well. CHEST: Clearer today than yesterday. Occasional wheezes. HEART: S1, S2. No gallop. ABDOMEN: Soft, nontender. No hepatosplenomegaly. EXTREMITIES: No edema. LABORATORY: WBC count 10.8, hematocrit 30.4, platelet count 208. Sodium 138, potassium 4.7, magnesium 1.5. IMPRESSION: 1. Necrotic ulcers, right foot, with methicillin-resistant Staphylococcus aureus infection. 2. Urinary tract infection, E. coli extended-spectrum beta- lactamase. 3. Asthmatic bronchitis. 4. Status post severe right hemiparesis. 5. Chronic obstructive pulmonary disease. 6. Coronary artery disease status post percutaneous transluminal coronary angioplasty. PLAN: Will review the chest x-ray done yesterday. The results are not available at this time. Continue IV antibiotics and NG tube feedings. I had discussed at length with the patient's daughter yesterday and will discuss with her again tomorrow. We will discuss with Dr. Rodriguez. Dictated By: Santo Mckeon MD /[email or web address]/raiza /Document#: [id number]
[2017-01-17] MEDS ORDERED: CEFAZOLIN 1 GM/50 ML (PMX) 50 ML IVPB ONE (12:08)
[2017-01-17] MEDS ORDERED: PROPOFOL 20 ML ONE (12:08)
[2017-01-17] MEDS ORDERED: PHENYLephrine (100 MCG/ML) 5ML SYG ONE (12:12)
--- NOTE | 2017-01-17 12:50 | PN ---
DATE: 01/17/2017 SUBJECTIVE DATA: The patient is lethargic. No shortness of breath evident. OBJECTIVE DATA: VITAL SIGNS: Temperature 98.7, blood pressure 136/68. O2 saturations 100 percent on 2 L nasal cannula. HEENT: Head normocephalic. Mild pallor without cyanosis. Tongue is coated, dry. NG tube functioning well. CHEST: Clear. No wheezes or rhonchi. HEART: S1, S2. No definite gallops. ABDOMEN: Soft, nontender. No hepatosplenomegaly. EXTREMITIES: No edema. Wounds of the right foot, unchanged (see photo documentation). NEUROLOGIC: Right hemiparesis evident. IMPRESSION: 1. Right foot necrotic ulcers secondary to peripheral arterial disease. Infection with methicillin-resistant Staphylococcus aureus, on vancomycin. So far no evidence of sepsis. 2. Status post acute asthmatic bronchitis, resolved. 3. Status post cerebrovascular event with right hemiparesis. 4. Hypertension. 5. Coronary artery disease. 6. Chronic right shoulder dislocation. 7. Neurogenic dysphagia, on nasogastric tube feedings. 8. History of abdominal aortic aneurysm. PLAN: For G-tube placement today per Dr. Nielson. I have discussed with the patient's daughter, Laure, regarding the need for above-knee amputation, right, as recommended by Dr. Romo. She would like to discuss with Dr. Romo first before making a decision. We will continue IV antibiotics and observe. Dictated By: Santo Mckeon MD /[email or web address]/reny /Document#: [id number]
[2017-01-17] MEDS: VANCOMYCIN 750 MG in SOD CHLORIDE 0.9% 150 ML IVPB SCH (15:53)
--- NOTE | 2017-01-17 18:02 | GILP ---
DATE OF PROCEDURE: 01/17/2017 PROCEDURE PERFORMED: Percutaneous endoscopic gastrostomy. HISTORY: An 86-year-old male undergoing this procedure for dysphagia and long-term enteral nutrition. At present, he is being fed through the NG tube and the patient is mentally obtunded. The risks of the procedure, related complications, and anesthetic risk were thoroughly discussed with the daughter and informed consent was obtained. DESCRIPTION OF PROCEDURE: The patient was brought to the GI lab, sedated by the anesthesiologist. After optimal sedation scope was passed with much ease into the esophagus. The patient was given Ancef prior to the procedure. Scope was advanced all the way down into stomach and duodenum. There was no evidence of obstruction by transillumination and digital palpation technique. The appropriate site was chosen on the anterior abdominal wall site was sterilized with chlorhexidine solution. Tube was [____] and sealed by Safe method. Small incision was made and through that incision a trocar stylet first into the stomach. Stylet was removed. Through the hollow tip of the catheter the blue string was passed which was identified in the stomach. String was snared with transendoscopic clip passed the snare and then the procedure was completed by modified Ponsky technique. Patient was re-scoped and the position of the internal bumper confirmed excellent bumper secured. Tolerated the procedure well. IMPRESSION: Successful placement of G tube done. PLAN: Is to resume feeding after 6 hours. All medication after 3 hours. Abdominal binder all the time. Dictated By: Julio Nielson MD /[email or web address]/shreya /Document#: [id number] CC: Santo Mckeon MD;*End*
[2017-01-17] MEDS: MIRTAZAPINE 15 MG TAB NGT SCH (22:19)
[2017-01-18] VITALS: BP 128/94; RESP 18
[2017-01-18 02:00] VITALS: BP 129/73; RESP 18
[2017-01-18] MEDS: ALBUTEROL 0.083% (NEB) 2.5 MG/3 ML AMP HHN SCH ×4 (02:39→20:01)
[2017-01-18 07:30] VITALS: BP 127/61; RESP 18
[2017-01-18] MEDS: DOCUSATE SODIUM 10 MG/ML (10ML CUP) NGT SCH (09:30)
[2017-01-18] MEDS: CALCIUM/VITAMIN D (500/200) TAB NGT SCH (09:30)
[2017-01-18] MEDS: MULTIVITAMINS 30 ML CUP GTB SCH (09:30)
[2017-01-18] MEDS: ASCORBIC ACID 500 MG TAB NGT SCH (09:30)
[2017-01-18] MEDS: FOLIC ACID 1 MG TAB NGT SCH (09:30)
[2017-01-18] MEDS: ENOXAPARIN 30 MG/0.3 ML SYG SC SCH (10:33)
--- NOTE | 2017-01-18 10:54 | PN ---
DATE: 01/18/2017 SUBJECTIVE DATA: The patient is lethargic. Tolerating G tube feedings. Status G tube placement yesterday. OBJECTIVE DATA: Temperature 98.7, blood pressure 122/61, O2 sats 100 percent. Mild pallor. No cyanosis or icterus. Tongue is moist. Neck is supple. Chest is clinically clear. Abdomen is soft, nontender. No hepatosplenomegaly. Extremities with no edema. Right foot ulcer is unchanged. IMPRESSION: 1. Right foot necrotic ulcer secondary to peripheral artery disease. Infection with methicillin-resistant Staphylococcus aureus on vancomycin. So far, no evidence of sepsis. 2. Status post acute asthmatic bronchitis, resolved. 3. Status post cerebral vascular accident with right hemiparesis. 4. Hypertension. 5. Coronary artery disease. 6. Chronic obstructive pulmonary disease. 7. Chronic right shoulder dislocation. 8. Neurogenic dysphagia, status post G-tube placement. 9. History of abdominal aortic aneurysm. PLAN: Will continue G-tube feedings and IV antibiotics. Will discuss with the patient's daughter again regarding further recommendations per Dr. Romo. We will also discuss with Dr. Romo and request him to discuss the vascular issues with patient's daughter. Dictated By: Santo Mckeon MD /[email or web address]/hua /Document#: [id number]
--- NOTE | 2017-01-18 11:19 | CONS ---
Date/Time of Note Date/Time of Note DATE: 01/18/17 TIME: 11:18 Assessment/Plan Assessment/Plan Chief Complaint/Hosp Course 86-year-old gentleman transferred from [facility] to the emergency room for the nonhealing of right foot ulcer. Patient is a necrotizing ulcer in the heel of the foot and also has good peripheral vascular disease. He was evaluated by the vascular surgeon and strongly recommended a below-knee amputation. Patient is high risk for aspiration and is being fed through the NG tube. 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 Patient is basically bedridden. Has a history of coronary artery disease with 2 stent placement. Patient is also suffering from dementia and no information can be obtained from him. GI consult was called in for replacement of gastrostomy tube. Problems: Additional Assessment/Plan Additional Assessment/Plan 1. Dysphagia 2. CVA 3. Nonhealing right heel ulcer 4. Peripheral arterial disease 5. COPD 6. Dementia 7. Coronary artery disease status post stent placement. 8. Status post PEG, tolerating feeding Plan Patient clinically much better now he is trying to communicate. He is tolerating feeding. Continue present care Consultation Date/Type/Reason Admit Date/Time Dec 28, 2016 at 10:36 Initial Consult Date 01/01/17 24 HR Interval Summary Constitutional: improved Exam/Review of Systems Vital Signs Vitals Vital Signs Date Time Temp Pulse Resp B/P Pulse Ox O2 Delivery O2 Flow Rate FiO2 01/18/17 09:10 2.0 01/18/17 09:10 76 20 98 Nasal Cannula 01/18/17 07:30 98.7 127/61 01/15/17 22:55 27 Intake and Output 01/17/17 01/17/17 01/18/17 15:00 23:00 07:00 Intake Total 150 ml 400 ml Output Total 400 ml Balance -250 ml 400 ml Exam Constitutional: alert, oriented, well developed Psych: nl mood/affect, no complaints Head: atraumatic, normocephalic Eyes: EOMI, PERRL, nl conjunctiva, nl lids, nl sclera ENMT: nl external ears & nose, nl lips & teeth, nl nasal mucosa & septum Neck: non-tender, supple Respiratory: clear to auscultation, normal air movement Cardiovascular: nl pulses, regular rate and rhythm Gastrointestinal: nl liver, spleen, non-tender, soft Musculoskeletal: nl extremities to inspection, nl gait and stance Extremities: normal pulses Neurological: GROUNDWATER MONITORING TECHNICIAN II-XII intact, nl mental status, nl speech, nl strength Skin: nl turgor, No rash or lesions Lymph: nl lymph nodes Results Result Diagram: 01/15/17 0530 01/17/17 0505 Medications Medications Current Medications Sodium Biphosphate/ Sodium Phosphate (Fleet Enema) 135 ml PRN [place] ; Start at 21:00 Enoxaparin Sodium (Lovenox) 30 mg DAILY SC Last administered on 01/18/17 10:33 ; Admin Dose 30 MG; Start 12/31/16 at 15:30 IV Flush (NS 10 ml) 10 ml PRN PRN IV IV PROTOCOL; Start 01/04/17 at 17:00 Clonidine (Catapres) 0.1 mg Q4H PRN NGT SBP >170 or DBP >110 Last administered on 01/05/17 23:02; Admin Dose 0.1 MG; Start 01/05/17 at 23:00 Ascorbic Acid (Vitamin C) 500 mg DAILY NGT Last administered on 01/18/17 09:30 ; Admin Dose 500 MG; Start 01/07/17 at 09:12 Calcium/Vitamin D (Oyster Shell/ Vit-D (500/200)) 1 tab DAILY NGT Last administered on 01/18/17 09:30; Admin Dose 1 TAB; Start 01/07/17 at 09:12 Docusate Sodium (Colace Liquid Cup) 100 mg DAILY NGT Last administered on 09:30; Admin Dose 100 MG; Start 01/07/17 at 09:30 Folic Acid (Folic Acid) 1 mg DAILY NGT Last administered on 01/18/17 09:30; Admin Dose 1 MG; Start 01/07/17 at 09:13 Magnesium Hydroxide (Milk Of Mag) 30 ml Q24H PRN NGT CONSTIPATION; Start at 09:14 Mirtazapine 15 mg 15 mg HS NGT Last administered on 01/17/17 22:19; Admin Dose 15 MG; Start 01/07/17 at 09:14 Vancomycin HCl/ Sodium Chloride (Vancocin/NS) 150 ml @ 75 mls/hr Q24H IVPB Last administered on 01/17/17 15:53; Admin Dose 75 MLS/HR; Start 01/12/17 at 15 :00 Multivitamins (Multivitamin) 30 ml DAILY GTB Last administered on 01/18/17 09: 30; Admin Dose 30 ML; Start 01/14/17 at 10:30 VEL NEWTON MD Jan 18, 2017 11:19
--- NOTE | 2017-01-18 12:26 | PN ---
Date/Time of Note Date/Time of Note DATE: 01/18/17 TIME: 12:17 Assessment/Plan Lines/Catheters IV Catheter Type (from Nrsg): PICC Line Arnett in Place (from Nrsg): Yes Assessment/Plan Chief Complaint/Hosp Course At that facility. He stated A3-year-old a medium blood pressure in the low the family moved to get above right left right knee 20 minutes of walking every day and mom is any need him able need a thank you hi on the other side implant of 104 mild edema the needle was updated as an with [id number] problem is seen and I will see screening vitamin D advised that he go on any medication that is any acute admitting that he is getting the use on the better technology and cannot be a BiPAP indication 1 assessment/Plan Chief Complaint/Hosp Course Peripheral vascular disease Problems: Additional Assessment/Plan Patient is nonambulatory at this time and contracted Patient has abnormal arterial studies indicative of possible aortobiiliac disease patient will need an amputation 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 Patient would need above knee amputations based on the superficial femoral artery occlusions We will discuss with the referring physicians We will proceed with the amputation when family is agreeable Problems: Subjective 24 Hr Interval Summary Constitutional: improved Pain Control: mild Exam/Review of Systems Vital Signs Vitals Vital Signs Date Time Temp Pulse Resp B/P Pulse Ox O2 Delivery O2 Flow Rate FiO2 01/18/17 09:10 2.0 01/18/17 09:10 76 20 98 Nasal Cannula 01/18/17 07:30 98.7 127/61 01/15/17 22:55 27 Intake and Output 01/17/17 01/17/17 01/18/17 15:00 23:00 07:00 Intake Total 150 ml 400 ml Output Total 400 ml Balance -250 ml 400 ml Exam ENMT: mucosa pink and moist, nl external ears & nose, nl lips & teeth, nl nasal mucosa & septum Neck: non-tender, supple Respiratory: clear to auscultation, normal air movement Cardiovascular: nl pulses, regular rate and rhythm Gastrointestinal: nl liver, spleen, non-tender, soft Results Result Diagram: 01/15/17 0530 01/17/17 0505 AMIRAH GALVEZ MD Jan 18, 2017 12:26
[2017-01-18] MEDS: VANCOMYCIN 750 MG in SOD CHLORIDE 0.9% 150 ML IVPB SCH (15:12)
[2017-01-18 15:21] VITALS: BP 129/60; RESP 18
[2017-01-18 20:00] VITALS: BP 136/63; RESP 18
[2017-01-18] MEDS: MIRTAZAPINE 15 MG TAB NGT SCH (20:43)
[2017-01-19 02:00] VITALS: BP 146/60; RESP 18
[2017-01-19] MEDS: ALBUTEROL 0.083% (NEB) 2.5 MG/3 ML AMP HHN SCH ×4 (02:07→20:25)
[2017-01-19 06:02] LABS: BASOPHILS % 0.4 % (0.0-2.0); EOSINOPHILS # 0.2 10^3/ul (0.0-0.5); EOSINOPHILS % 2.1 % (0.0-7.0); HEMATOCRIT 27.8 % (42.0-52.0); HEMOGLOBIN 8.9 g/dl (14.0-18.0); LYMPHOCYTES % 23.8 % (15.0-51.0); MEAN CORPUSCULAR HEMOGLOBIN 28.3 pg (29.0-33.0); MEAN CORPUSCULAR VOLUME 88.3 fl (82.0-101.0); MEAN PLATELET VOLUME 9.4 fl (7.4-10.4); MONOCYTE # 0.6 10^3/ul (0.3-0.9); MONOCYTES % 6.6 % (0.0-11.0); NEUTROPHIL # 5.6 10^3/ul (1.6-7.5); NEUTROPHILS % 65.8 % (39.0-77.0); PLATELET COUNT 238 10^3/UL (140-415); RED BLOOD COUNT 3.15 10^6/ul (4.70-6.10); RED CELL DISTRIBUTION WIDTH 15.5 % (11.5-14.5); WHITE BLOOD COUNT 8.5 10^3/ul (4.8-10.8)
[2017-01-19 06:54] LABS: CALCIUM 8.7 mg/dl (8.4-10.2); CREATININE 0.53 mg/dl (0.61-1.24); POTASSIUM 4.1 mmol/L (3.5-5.1)
[2017-01-19 07:28] LABS: INR 1.03; PROTIME 13.5 Sec (12.2-14.2); PT RATIO 1.1
[2017-01-19] MEDS: MULTIVITAMINS 30 ML CUP GTB SCH (09:00)
[2017-01-19 09:20] VITALS: BP 182/81; RESP 18
[2017-01-19] MEDS: CALCIUM/VITAMIN D (500/200) TAB NGT SCH (10:03)
[2017-01-19] MEDS: DOCUSATE SODIUM 10 MG/ML (10ML CUP) NGT SCH (10:03)
[2017-01-19] MEDS: ASCORBIC ACID 500 MG TAB NGT SCH (10:03)
[2017-01-19] MEDS: FOLIC ACID 1 MG TAB NGT SCH (10:03)
--- NOTE | 2017-01-19 10:50 | CONS ---
Date/Time of Note Date/Time of Note DATE: 01/19/17 TIME: 10:49 Assessment/Plan Assessment/Plan Chief Complaint/Hosp Course 86-year-old gentleman transferred from retirement to the emergency room for the nonhealing of right foot ulcer. Patient is a necrotizing ulcer in the heel of the foot and also has good peripheral vascular disease. He was evaluated by the vascular surgeon and strongly recommended a below-knee amputation. Patient is high risk for aspiration and is being fed through the NG tube. 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 Patient is basically bedridden. Has a history of coronary artery disease with 2 stent placement. Patient is also suffering from dementia and no information can be obtained from him. GI consult was called in for replacement of gastrostomy tube. Problems: Additional Assessment/Plan Additional Assessment/Plan 1. Dysphagia 2. CVA 3. Nonhealing right heel ulcer 4. Peripheral arterial disease 5. COPD 6. Dementia 7. Coronary artery disease status post stent placement. 8. Status post PEG, tolerating feeding 9. Anemia, there is no evidence of acute GI bleeding Plan Patient clinically much better now he is trying to communicate. He is tolerating feeding. Monitor H&H Amputation as per vascular surgeon Continue present care Consultation Date/Type/Reason Admit Date/Time Dec 28, 2016 at 10:36 Initial Consult Date 01/01/17 24 HR Interval Summary Constitutional: improved Exam/Review of Systems Vital Signs Vitals Vital Signs Date Time Temp Pulse Resp B/P Pulse Ox O2 Delivery O2 Flow Rate FiO2 01/19/17 09:20 98.9 85 18 182/81 97 01/19/17 07:58 21 01/19/17 02:07 Nasal Cannula 2.0 Intake and Output 01/18/17 01/18/17 01/19/17 15:00 23:00 07:00 Intake Total 150 ml 680 ml Output Total 350 ml 400 ml Balance -200 ml 280 ml Exam Constitutional: alert, oriented, well developed Psych: nl mood/affect, no complaints Head: atraumatic, normocephalic Eyes: EOMI, PERRL, nl conjunctiva, nl lids, nl sclera ENMT: nl external ears & nose, nl lips & teeth, nl nasal mucosa & septum Neck: non-tender, supple Respiratory: clear to auscultation, normal air movement Cardiovascular: nl pulses, regular rate and rhythm Gastrointestinal: nl liver, spleen, non-tender, soft Musculoskeletal: nl extremities to inspection, nl gait and stance Extremities: normal pulses Neurological: TIMBER SIZER OPERATOR II-XII intact, nl mental status, nl speech, nl strength Skin: nl turgor, No rash or lesions Lymph: nl lymph nodes Results Result Diagram: 01/19/17 0552 01/19/17 0552 Results 24 hrs Laboratory Tests Test 01/19/17 05:52 White Blood Count 8.5 Red Blood Count 3.15 L Hemoglobin 8.9 L Hematocrit 27.8 L Mean Corpuscular Volume 88.3 Mean Corpuscular Hemoglobin 28.3 L Mean Corpuscular Hemoglobin Concent 32.0 Red Cell Distribution Width 15.5 H Platelet Count 238 Mean Platelet Volume 9.4 Neutrophils % 65.8 Lymphocytes % 23.8 Monocytes % 6.6 Eosinophils % 2.1 Basophils % 0.4 Nucleated Red Blood Cells % 0.0 Neutrophils # 5.6 Lymphocytes # 2.0 Monocytes # 0.6 Eosinophils # 0.2 Basophils # 0.0 Nucleated Red Blood Cells # 0.0 Prothrombin Time 13.5 Prothrombin Time Ratio 1.1 INR International Normalized Ratio 1.03 Sodium Level 141 Potassium Level 4.1 Chloride Level 99 Carbon Dioxide Level 30 Anion Gap 16 Blood Urea Nitrogen 22 H Creatinine 0.53 L Glucose Level 123 Calcium Level 8.7 Medications Medications Current Medications Sodium Biphosphate/ Sodium Phosphate (Fleet Enema) 135 ml PRN [place] ; Start at 21:00 Enoxaparin Sodium (Lovenox) 30 mg DAILY SC Last administered on 01/18/17 10:33 ; Admin Dose 30 MG; Start 12/31/16 at 15:30 IV Flush (NS 10 ml) 10 ml PRN PRN IV IV PROTOCOL; Start 01/04/17 at 17:00 Clonidine (Catapres) 0.1 mg Q4H PRN NGT SBP >170 or DBP >110 Last administered on 01/05/17 23:02; Admin Dose 0.1 MG; Start 01/05/17 at 23:00 Ascorbic Acid (Vitamin C) 500 mg DAILY NGT Last administered on 01/18/17 09:30 ; Admin Dose 500 MG; Start 01/07/17 at 09:12 Calcium/Vitamin D (Oyster Shell/ Vit-D (500/200)) 1 tab DAILY NGT Last administered on 01/18/17 09:30; Admin Dose 1 TAB; Start 01/07/17 at 09:12 Docusate Sodium (Colace Liquid Cup) 100 mg DAILY NGT Last administered on 09:30; Admin Dose 100 MG; Start 01/07/17 at 09:30 Folic Acid (Folic Acid) 1 mg DAILY NGT Last administered on 01/18/17 09:30; Admin Dose 1 MG; Start 01/07/17 at 09:13 Magnesium Hydroxide (Milk Of Mag) 30 ml Q24H PRN NGT CONSTIPATION; Start at 09:14 Mirtazapine 15 mg 15 mg HS NGT Last administered on 01/18/17 20:43; Admin Dose 15 MG; Start 01/07/17 at 09:14 Vancomycin HCl/ Sodium Chloride (Vancocin/NS) 150 ml @ 75 mls/hr Q24H IVPB Last administered on 01/18/17 15:12; Admin Dose 75 MLS/HR; Start 01/12/17 at 15: 00 Multivitamins (Multivitamin) 30 ml DAILY GTB Last administered on 01/18/17 09: 30; Admin Dose 30 ML; Start 01/14/17 at 10:30 VEL NEWTON MD Jan 19, 2017 10:50
[2017-01-19] MEDS: ENOXAPARIN 30 MG/0.3 ML SYG SC SCH (10:57)
[2017-01-19 13:35] VITALS: BP 137/87; RESP 18
--- NOTE | 2017-01-19 14:32 | PN ---
DATE: 01/19/2017 SUBJECTIVE DATA: The patient is more responsive. He is tolerating G-tube feedings. OBJECTIVE DATA: VITAL SIGNS: Temperature 98.9, blood pressure 182/81, O2 saturation 97 percent. HEENT: Head normocephalic. Mild pallor with cyanosis. RESPIRATORY: Chest clinically clear. CARDIAC: Heart S1, S2. No definite gallops. EXTREMITIES: Extremities, no edema. Right foot wounds unchanged. The patient was also noted to have sacrococcygeal partial-thickness stage II pressure injuries noted. Multiple wounds right foot essentially unchanged. LABORATORY: WBC 28.5, hematocrit 27.8, platelet count is 238,000. Sodium 141, potassium 4.1, BUN 22, creatinine 0.53, glucose 123. IMPRESSION: 1. Right foot necrotic ulcers secondary to peripheral artery disease. Inpatient MRSA on vancomycin. So far, no evidence of sepsis. 2. COPD, status post recent acute asthmatic bronchitis, resolved. 3. Status post severe right hemiparesis. 4. Hypertension. 5. Coronary artery disease. 6. Chronic right shoulder dislocation. 7. Neurogenic dysphagia on G-tube feedings. 8. History of aortic aneurysm (abdomen). I discussed the case with Dr. Walls late yesterday, who was going to discuss with the patient's daughter regarding above-knee amputation. I will await the decision from the patient's daughter. Dictated By: Santo Mckeon MD /[email or web address] /Document#: [id number]
[2017-01-19] MEDS: BALSAM PERU/CASTOR OIL 60 GM TUBE TOP SCH ×2 (14:36→21:27)
[2017-01-19] MEDS: VANCOMYCIN 750 MG in SOD CHLORIDE 0.9% 150 ML IVPB SCH (15:57)
--- NOTE | 2017-01-19 18:50 | PN ---
Date/Time of Note Date/Time of Note DATE: 01/19/17 TIME: 18:49 Assessment/Plan Lines/Catheters IV Catheter Type (from Nrsg): PICC Line Arnett in Place (from Nrsg): Yes Assessment/Plan Chief Complaint/Hosp Course At that facility. He stated A3-year-old a medium blood pressure in the low the family moved to get above right left right knee 20 minutes of walking every day and mom is any need him able need a thank you hi on the other side implant of 104 mild edema the needle was updated as an with [id number] problem is seen and I will see screening vitamin D advised that he go on any medication that is any acute admitting that he is getting the use on the better technology and cannot be a BiPAP indication 1 assessment/Plan Chief Complaint/Hosp Course Peripheral vascular disease Problems: Additional Assessment/Plan Patient is nonambulatory at this time and contracted Patient has abnormal arterial studies indicative of possible aortobiiliac disease patient will need an amputation 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 Patient would need above knee amputations based on the superficial femoral artery occlusions We will discuss with the referring physicians We will proceed with the amputation when family is agreeable Problems: Subjective 24 Hr Interval Summary Constitutional: improved Pain Control: mild Exam/Review of Systems Vital Signs Vitals Vital Signs Date Time Temp Pulse Resp B/P Pulse Ox O2 Delivery O2 Flow Rate FiO2 01/19/17 13:59 76 20 99 21 01/19/17 13:35 98.9 137/87 01/19/17 02:07 Nasal Cannula 2.0 Intake and Output 01/18/17 01/18/17 01/19/17 15:00 23:00 07:00 Intake Total 150 ml 680 ml Output Total 350 ml 400 ml Balance -200 ml 280 ml Exam Neck: non-tender, supple Respiratory: clear to auscultation, normal air movement Cardiovascular: nl pulses, regular rate and rhythm Gastrointestinal: nl liver, spleen, non-tender, soft Results Result Diagram: 01/19/17 0552 01/19/17 0552 AMIRAH GALVEZ MD Jan 19, 2017 18:50
[2017-01-19 19:19] VITALS: BP 139/75; RESP 18
[2017-01-19] MEDS: MIRTAZAPINE 15 MG TAB NGT SCH (21:27)
[2017-01-20 01:50] VITALS: BP 136/63; RESP 18
[2017-01-20] MEDS: ALBUTEROL 0.083% (NEB) 2.5 MG/3 ML AMP HHN SCH ×4 (02:13→19:48)
[2017-01-20 08:13] VITALS: BP 166/62; RESP 18
[2017-01-20] MEDS: FOLIC ACID 1 MG TAB NGT SCH (08:32)
[2017-01-20] MEDS: CALCIUM/VITAMIN D (500/200) TAB NGT SCH (08:32)
[2017-01-20] MEDS: MULTIVITAMINS 30 ML CUP GTB SCH (08:32)
[2017-01-20] MEDS: DOCUSATE SODIUM 10 MG/ML (10ML CUP) NGT SCH (08:32)
[2017-01-20] MEDS: BALSAM PERU/CASTOR OIL 60 GM TUBE TOP SCH ×2 (08:32→21:47)
[2017-01-20] MEDS: ASCORBIC ACID 500 MG TAB NGT SCH (08:32)
[2017-01-20] MEDS: ENOXAPARIN 30 MG/0.3 ML SYG SC SCH (08:40)
[2017-01-20 14:55] VITALS: BP 108/56; RESP 18
[2017-01-20] MEDS: VANCOMYCIN 750 MG in SOD CHLORIDE 0.9% 150 ML IVPB SCH (15:35)
--- NOTE | 2017-01-20 19:04 | CONS ---
Date/Time of Note Date/Time of Note DATE: 01/20/17 TIME: 19:03 Assessment/Plan Assessment/Plan Chief Complaint/Hosp Course 86-year-old gentleman [facility] for the nonhealing of right foot ulcer. Patient is a necrotizing ulcer in the heel of the foot and also has good peripheral vascular disease. He was evaluated by the vascular surgeon and strongly recommended a below-knee amputation. Patient is high risk for aspiration and is being fed through the NG tube. 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 Patient is basically bedridden. Has a history of coronary artery disease with 2 stent placement. Patient is also suffering from dementia and no information can be obtained from him. GI consult was called in for replacement of gastrostomy tube. Problems: Additional Assessment/Plan 1. Dysphagia 2. CVA 3. Nonhealing right heel ulcer 4. Peripheral arterial disease 5. COPD 6. Dementia 7. Coronary artery disease status post stent placement. 8. Status post PEG, tolerating feeding 9. Anemia, there is no evidence of acute GI bleeding Plan Patient clinically much better now he is trying to communicate. He is tolerating feeding. Monitor H&H Amputation as per vascular surgeon Continue present care Will follow as needed Consultation Date/Type/Reason Admit Date/Time Dec 28, 2016 at 10:36 Initial Consult Date 01/01/17 24 HR Interval Summary Constitutional: improved, no complaints Exam/Review of Systems Vital Signs Vitals Vital Signs Date Time Temp Pulse Resp B/P Pulse Ox O2 Delivery O2 Flow Rate FiO2 01/20/17 14:55 98.6 67 18 108/56 99 01/20/17 13:54 21 01/20/17 09:00 Nasal Cannula 2.0 Intake and Output 01/19/17 01/19/17 01/20/17 15:00 23:00 07:00 Intake Total 150 ml Output Total 750 ml 400 ml Balance -600 ml -400 ml Exam Constitutional: alert, oriented, well developed Psych: nl mood/affect, no complaints Head: atraumatic, normocephalic Eyes: EOMI, PERRL, nl conjunctiva, nl lids, nl sclera ENMT: nl external ears & nose, nl lips & teeth, nl nasal mucosa & septum Neck: non-tender, supple Respiratory: clear to auscultation, normal air movement Cardiovascular: nl pulses, regular rate and rhythm Gastrointestinal: nl liver, spleen, non-tender, soft Musculoskeletal: nl extremities to inspection, nl gait and stance Extremities: normal pulses Neurological: PROGRAM DIRECTOR/MUSIC DIRECTOR II-XII intact, nl mental status, nl speech, nl strength Skin: nl turgor, No rash or lesions Lymph: nl lymph nodes Results Result Diagram: 01/19/17 0552 01/19/1752 Medications Medications Current Medications Sodium Biphosphate/ Sodium Phosphate (Fleet Enema) 135 ml PRN [place] ; Start at 21:00 Enoxaparin Sodium (Lovenox) 30 mg DAILY SC Last administered on 01/20/17 08:40 ; Admin Dose 30 MG; Start 12/31/16 at 15:30 IV Flush (NS 10 ml) 10 ml PRN PRN IV IV PROTOCOL; Start 01/04/17 at 17:00 Clonidine (Catapres) 0.1 mg Q4H PRN NGT SBP >170 or DBP >110 Last administered on 01/05/17 23:02; Admin Dose 0.1 MG; Start 01/05/17 at 23:00 Ascorbic Acid (Vitamin C) 500 mg DAILY NGT Last administered on 01/20/17 08:32 ; Admin Dose 500 MG; Start 01/07/17 at 09:12 Calcium/Vitamin D (Oyster Shell/ Vit-D (500/200)) 1 tab DAILY NGT Last administered on 01/20/17 08:32; Admin Dose 1 TAB; Start 01/07/17 at 09:12 Docusate Sodium (Colace Liquid Cup) 100 mg DAILY NGT Last administered on 08:32; Admin Dose 100 MG; Start 01/07/17 at 09:30 Folic Acid (Folic Acid) 1 mg DAILY NGT Last administered on 01/20/17 08:32; Admin Dose 1 MG; Start 01/07/17 at 09:13 Magnesium Hydroxide (Milk Of Mag) 30 ml Q24H PRN NGT CONSTIPATION; Start at 09:14 Mirtazapine 15 mg 15 mg HS NGT Last administered on 01/19/17 21:27; Admin Dose 15 MG; Start 01/07/17 at 09:14 Vancomycin HCl/ Sodium Chloride (Vancocin/NS) 150 ml @ 75 mls/hr Q24H IVPB Last administered on 01/20/17 15:35; Admin Dose 75 MLS/HR; Start 01/12/17 at 15: 00 Multivitamins (Multivitamin) 30 ml DAILY GTB Last administered on 01/20/17 08: 32; Admin Dose 30 ML; Start 01/14/17 at 10:30 VEL NEWTON MD Jan 20, 2017 19:04
[2017-01-20 19:26] VITALS: BP 138/60
[2017-01-20] MEDS: MIRTAZAPINE 15 MG TAB NGT SCH (21:47)
[2017-01-21] MEDS: ALBUTEROL 0.083% (NEB) 2.5 MG/3 ML AMP HHN SCH ×4 (01:29→20:10)
[2017-01-21 02:04] VITALS: BP 137/79; RESP 20
--- NOTE | 2017-01-21 06:25 | PN ---
DATE: 01/20/2017 SUBJECTIVE DATA: The patient is lethargic. Tolerating G-tube feedings well. OBJECTIVE DATA: VITAL SIGNS: Temperature 98.7 degrees, blood pressure 166/62, O2 saturation 99 percent on 2 L nasal cannula. RESPIRATORY: Chest clinically clear. CARDIAC: Heart is S1, S2. No definite gallops. EXTREMITIES: Right foot ulcers, unchanged. ASSESSMENT AND PLAN: 1. Multiple necrotic ulcers, right foot secondary to peripheral artery disease, infected with methicillin-resistant staphylococcus aureus. No evidence of sepsis. 2. Chronic obstructive pulmonary disease, status post recent acute asthmatic bronchitis, resolved. 3. Status post right hemiparesis. 4. Hypertension. 5. Coronary artery disease. 6. Chronic right shoulder dislocation. 7. Neurogenic dysphagia. 8. History of aortic aneurysm. I had a long discussion with the patient's daughter, who is considering above-knee amputation versus comfort care. She will discuss with the and discussed with Dr. Romo and let me know. I have discussed with her regarding the risks of sepsis in case amputation is not done and also discussed with her regarding his multiple comorbid factors. Dictated By: Santo Mckeon MD /[email or web address] /Document#: [id number]
[2017-01-21 08:17] VITALS: BP 108/53; RESP 20
[2017-01-21] MEDS: ASCORBIC ACID 500 MG TAB NGT SCH (09:35)
[2017-01-21] MEDS: FOLIC ACID 1 MG TAB NGT SCH (09:35)
[2017-01-21] MEDS: CALCIUM/VITAMIN D (500/200) TAB NGT SCH (09:35)
[2017-01-21] MEDS: MULTIVITAMINS 30 ML CUP GTB SCH (09:35)
[2017-01-21] MEDS: DOCUSATE SODIUM 10 MG/ML (10ML CUP) NGT SCH (09:35)
[2017-01-21] MEDS: BALSAM PERU/CASTOR OIL 60 GM TUBE TOP SCH ×2 (09:36→20:16)
[2017-01-21] MEDS: ENOXAPARIN 30 MG/0.3 ML SYG SC SCH (09:57)
[2017-01-21] MEDS: VANCOMYCIN 750 MG in SOD CHLORIDE 0.9% 150 ML IVPB SCH (15:51)
[2017-01-21 16:03] VITALS: BP 138/69; RESP 18
[2017-01-21 20:00] VITALS: BP 133/59; RESP 18
[2017-01-21] MEDS: MIRTAZAPINE 15 MG TAB NGT SCH (20:16)
--- NOTE | 2017-01-21 20:44 | PN ---
Date/Time of Note Date/Time of Note DATE: 01/21/17 TIME: 20:43 Assessment/Plan VTE Prophylaxis VTE Prophylaxis Intervention: other Lines/Catheters [facility] Central line still needed: No Urinary Cath still in place: No Assessment/Plan Chief Complaint/Hosp Course A Additional Assessment/Plan Patient is nonambulatory at this time and contracted Patient has abnormal arterial studies indicative of possible aortobiiliac disease patient will need an amputation 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 Patient would need above knee amputations based on the superficial femoral artery occlusions We will discuss with the referring physicians We will proceed with the amputation when family is agreeable I spoke with the daughter different options were explained to her amputation as the first option because of the patient nonambulatory status with stress she will think about the operation and let us know her decision Problems: Subjective 24 Hr Interval Summary Cardiovascular: no complaints Gastrointestinal: no complaints Genitourinary: no complaints Musculoskeletal: no complaints Skin: no complaints Neurologic: no complaints Exam/Review of Systems Vital Signs Vitals Vital Signs Date Time Temp Pulse Resp B/P Pulse Ox O2 Delivery O2 Flow Rate FiO2 01/21/17 20:10 72 16 99 21 01/21/17 16:03 99.1 138/69 01/21/17 09:00 Nasal Cannula 2.0 Intake and Output 01/20/17 01/20/17 01/21/17 15:00 23:00 07:00 Intake Total 900 ml Output Total 450 ml 900 ml Balance 450 ml -900 ml Exam Neck: non-tender, supple Respiratory: clear to auscultation, normal air movement Cardiovascular: nl pulses, regular rate and rhythm Gastrointestinal: nl liver, spleen, non-tender, soft Results Result Diagram: 01/19/17 0552 01/19/17 0552 Medications Medications Current Medications Sodium Biphosphate/ Sodium Phosphate (Fleet Enema) 135 ml PRN [place] ; Start at 21:00 Enoxaparin Sodium (Lovenox) 30 mg DAILY SC Last administered on 01/21/17t 09:57 ; Admin Dose 30 MG; Start 12/31/16 at 15:30 IV Flush (NS 10 ml) 10 ml PRN PRN IV IV PROTOCOL; Start 01/04/17 at 17:00 Clonidine (Catapres) 0.1 mg Q4H PRN NGT SBP >170 or DBP >110 Last administered on 01/05/17 23:02; Admin Dose 0.1 MG; Start 01/05/17 at 23:00 Ascorbic Acid (Vitamin C) 500 mg DAILY NGT Last administered on 01/21/17 09:35 ; Admin Dose 500 MG; Start 01/07/17 at 09:12 Calcium/Vitamin D (Oyster Shell/ Vit-D (500/200)) 1 tab DAILY NGT Last administered on 01/21/17 09:35; Admin Dose 1 TAB; Start 01/07/17 at 09:12 Docusate Sodium (Colace Liquid Cup) 100 mg DAILY NGT Last administered on 09:35; Admin Dose 100 MG; Start 01/07/17 at 09:30 Folic Acid (Folic Acid) 1 mg DAILY NGT Last administered on 01/21/17 09:35; Admin Dose 1 MG; Start 01/07/17 at 09:13 Magnesium Hydroxide (Milk Of Mag) 30 ml Q24H PRN NGT CONSTIPATION; Start at 09:14 Mirtazapine 15 mg 15 mg HS NGT Last administered on 01/21/17 20:16; Admin Dose 15 MG; Start 01/07/17 at 09:14 Vancomycin HCl/ Sodium Chloride (Vancocin/NS) 150 ml @ 75 mls/hr Q24H IVPB Last administered on 01/21/17 15:51; Admin Dose 75 MLS/HR; Start 01/12/17 at 15: 00 Multivitamins (Multivitamin) 30 ml DAILY GTB Last administered on 01/21/17 09: 35; Admin Dose 30 ML; Start 01/14/17 at 10:30 Miscellaneous Information (*Rx Drug Level Order Reminder*) VANCOMYCIN TROUGH AT 1,400 ON 01/22 ONCE ONCE XX ; Start 01/22/17 at 14:00; Stop 01/22/17 at 14:01 AMIRAH GALVEZ MD Jan 21, 2017 20:44
--- NOTE | 2017-01-22 01:47 | PN ---
DATE: 01/21/2017 SUBJECTIVE DATA: The patient is more responsive, tolerating G- tube feedings. OBJECTIVE DATA: VITAL SIGNS: Afebrile. Blood pressure 108/53. O2 saturations 97% on 2 L nasal cannula. CHEST: Clinically clear. CARDIAC: S1, S2. No rubs or gallops. ABDOMEN: Soft, nontender. No organomegaly. EXTREMITIES: No edema. Ulcer, right foot, unchanged. ASSESSMENT AND PLAN: 1. Multiple necrotic ulcers, right foot, secondary to peripheral artery disease. MRSA infection. No evidence of sepsis so far. 2. Chronic obstructive pulmonary disease status post recent acute asthmatic bronchitis, resolved. 3. Status post right hemiparesis. 4. Chronic right shoulder dislocation. 5. Neurogenic dysphagia on G-tube feedings. 6. Coronary artery disease. 7. Hypertension. Awaiting call back from patient's daughter who was going to discuss with [____] regarding kfutl-skl-unph amputation. If I do not hear from her today, will place another call to her today and discuss with [____]. Dictated By: Santo Mckeon MD /[email or web address]/jerrod /Document#: [id number]
[2017-01-22] MEDS: ALBUTEROL 0.083% (NEB) 2.5 MG/3 ML AMP HHN SCH ×4 (01:57→19:36)
[2017-01-22 02:34] VITALS: BP 137/82; RESP 18
[2017-01-22 06:02] LABS: CREATININE 0.49 mg/dl (0.61-1.24)
[2017-01-22 07:58] VITALS: BP 138/65; RESP 18
[2017-01-22] MEDS: DOCUSATE SODIUM 10 MG/ML (10ML CUP) NGT SCH (09:28)
[2017-01-22] MEDS: ASCORBIC ACID 500 MG TAB NGT SCH (09:28)
[2017-01-22] MEDS: FOLIC ACID 1 MG TAB NGT SCH (09:28)
[2017-01-22] MEDS: MULTIVITAMINS 30 ML CUP GTB SCH (09:28)
[2017-01-22] MEDS: BALSAM PERU/CASTOR OIL 60 GM TUBE TOP SCH ×2 (09:28→21:33)
[2017-01-22] MEDS: CALCIUM/VITAMIN D (500/200) TAB NGT SCH (09:28)
[2017-01-22] MEDS: ENOXAPARIN 30 MG/0.3 ML SYG SC SCH (09:34)
--- NOTE | 2017-01-22 12:49 | PN ---
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 Patient would need above knee amputations based on the superficial femoral artery occlusions We will discuss with the referring physicians We will proceed with the amputation when family is agreeable I spoke with the daughter different options were explained to her amputation as the first option because of the patient nonambulatory status with stress she will think about the operation and let us know her decision Problems: Subjective 24 Hr Interval Summary Constitutional: improved Pain Control: mild Exam/Review of Systems Vital Signs Vitals Vital Signs Date Time Temp Pulse Resp B/P Pulse Ox O2 Delivery O2 Flow Rate FiO2 01/22/17 09:00 Nasal Cannula 2.0 01/22/17 08:26 21 01/22/17 08:26 70 18 97 01/22/17 07:58 98.8 138/65 Intake and Output 01/21/17 01/21/17 01/22/17 15:00 23:00 07:00 Intake Total 900 ml 750 ml Output Total 600 ml 650 ml Balance 300 ml 100 ml Exam ENMT: mucosa pink and moist, nl external ears & nose, nl lips & teeth, nl nasal mucosa & septum Neck: non-tender, supple Respiratory: clear to auscultation, normal air movement Cardiovascular: nl pulses, regular rate and rhythm Gastrointestinal: nl liver, spleen, non-tender, soft Results Result Diagram: 01/19/17 0552 01/22/17 0451 AMIRAH GALVEZ MD Jan 22, 2017 12:49
--- NOTE | 2017-01-22 13:55 | PN ---
DATE: 01/22/2017 SUBJECTIVE DATA: The patient is more awake and responsive. OBJECTIVE DATA: Vital signs: Temperature 98.8, blood pressure 130/65, O2 sats 97 percent. HEENT head normocephalic. No pallor, cyanosis, or icterus. Chest is clinically clear. Heart S1, S2. No murmurs, gallops. Extremities: No edema. Right foot wound ulcers unchanged. IMPRESSION: 1. Multiple necrotic ulcers, right foot secondary to peripheral arterial disease with methicillin-resistant Staphylococcus aureus infection. 2. Chronic obstructive pulmonary disease . 3. Status post right hemiparesis. 4. Chronic right shoulder dislocation. 5. Increasing dysphagia on G-tube feedings. 6. Coronary artery disease. 7. Hypertension. PLAN: Awaiting decision from the family regarding above-knee amputation per Dr. Romo. Dictated By: Santo Mckeon MD /[email or web address]/hua /Document#: [id number]
[2017-01-22 14:00] VITALS: BP 132/60; RESP 18
[2017-01-22] MEDS: VANCOMYCIN 750 MG in SOD CHLORIDE 0.9% 150 ML IVPB SCH (15:24)
[2017-01-22 20:00] VITALS: BP 127/58; RESP 18
[2017-01-22] MEDS: MIRTAZAPINE 15 MG TAB NGT SCH (21:32)
[2017-01-23] MEDS: ALBUTEROL 0.083% (NEB) 2.5 MG/3 ML AMP HHN SCH ×4 (01:20→19:59)
[2017-01-23 02:00] VITALS: BP 138/74; RESP 20
[2017-01-23 08:19] VITALS: BP 119/70; PULSE 89; RESP 20
[2017-01-23] MEDS: FOLIC ACID 1 MG TAB NGT SCH (08:24)
[2017-01-23] MEDS: CALCIUM/VITAMIN D (500/200) TAB NGT SCH (08:24)
[2017-01-23] MEDS: MULTIVITAMINS 30 ML CUP GTB SCH (08:24)
[2017-01-23] MEDS: ASCORBIC ACID 500 MG TAB NGT SCH (08:24)
[2017-01-23] MEDS: DOCUSATE SODIUM 10 MG/ML (10ML CUP) NGT SCH (08:24)
[2017-01-23] MEDS: ENOXAPARIN 30 MG/0.3 ML SYG SC SCH (09:20)
[2017-01-23] MEDS: BALSAM PERU/CASTOR OIL 60 GM TUBE TOP SCH ×2 (09:28→21:05)
--- NOTE | 2017-01-23 12:43 | PN ---
Date/Time of Note Date/Time of Note DATE: 01/23/17 TIME: 12:43 Assessment/Plan Lines/Catheters IV Catheter Type (from Nrsg): PICC Line Arnett in Place (from Nrsg): Yes Assessment/Plan Chief Complaint/Hosp Course A Additional Assessment/Plan Patient is nonambulatory at this time and contracted Patient has abnormal arterial studies indicative of possible aortobiiliac disease patient will need an amputation 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 Patient would need above knee amputations based on the superficial femoral artery occlusions We will discuss with the referring physicians We will proceed with the amputation when family is agreeable I spoke with the daughter different options were explained to her amputation as the first option because of the patient nonambulatory status with stress she will think about the operation and let us know her decision Problems: Subjective 24 Hr Interval Summary Constitutional: improved Pain Control: mild Exam/Review of Systems Vital Signs Vitals Vital Signs Date Time Temp Pulse Resp B/P Pulse Ox O2 Delivery O2 Flow Rate FiO2 01/23/17 08:19 98.2 89 20 119/70 100 89 01/23/17 07:39 Nasal Cannula 2.0 01/23/17 01:21 21 Intake and Output 01/22/17 01/22/17 01/23/17 15:00 23:00 07:00 Intake Total 900 ml 800 ml Output Total 750 ml 600 ml Balance 150 ml 200 ml Exam ENMT: mucosa pink and moist, nl external ears & nose, nl lips & teeth, nl nasal mucosa & septum Neck: non-tender, supple Respiratory: clear to auscultation, normal air movement Cardiovascular: nl pulses, regular rate and rhythm Gastrointestinal: nl liver, spleen, non-tender, soft Results Result Diagram: 01/19/17 0552 01/22/17 0451 AMIRAH GALVEZ MD Jan 23, 2017 12:43
--- NOTE | 2017-01-23 13:33 | PN ---
DATE: 01/23/2017 SUBJECTIVE: The patient is more responsive. Tolerating NG tube feedings. OBJECTIVE DATA: Vital signs temperature 98.2, blood pressure 119/70, O2 saturation 100 percent on nasal cannula 2 L. Mild pallor. No cyanosis or icterus. Tongue is moist. Neck is supple. No thyromegaly, bruits, or lymphadenopathy. Chest, clear anteriorly. Heart, S1, S2. No definite gallops. Abdomen, G-tube site without any signs of infection. Extremities, no edema. Wounds in the right foot, unchanged. The patient is noted to have prominent non blanchable redness on the right lateral toe. Wound care has been initiated. Will obtain serum albumin levels, CBC and add vitamin C and zinc for better wound healing. Awaiting still the decision from the patient's daughter. I discussed the case with Dr. Romo yesterday who had spoken with the patient's daughter. Follow recommendations per Dr. Romo. Dictated By: Santo Mckeon MD /[email or web address]/jerrod /Document#: [id number]
[2017-01-23 14:00] VITALS: BP 116/75; RESP 20
[2017-01-23] MEDS: ZINC SULFATE 220 MG CAP GTB SCH (15:13)
[2017-01-23] MEDS: VANCOMYCIN 750 MG in SOD CHLORIDE 0.9% 150 ML IVPB SCH (15:13)
[2017-01-23 19:51] VITALS: BP 137/67; RESP 18
[2017-01-23] MEDS: MIRTAZAPINE 15 MG TAB NGT SCH (21:05)
[2017-01-24] MEDS: ALBUTEROL 0.083% (NEB) 2.5 MG/3 ML AMP HHN SCH ×4 (01:41→19:27)
[2017-01-24 02:34] VITALS: BP 121/56; RESP 18
[2017-01-24 05:22] LABS: BASOPHILS % 0.4 % (0.0-2.0); EOSINOPHILS # 0.3 10^3/ul (0.0-0.5); EOSINOPHILS % 3.4 % (0.0-7.0); HEMATOCRIT 26.2 % (42.0-52.0); HEMOGLOBIN 8.5 g/dl (14.0-18.0); LYMPHOCYTES # 1.6 10^3/ul (0.8-2.9); MEAN CORPUSCULAR HEMOGLOBIN 28.5 pg (29.0-33.0); MEAN CORPUSCULAR HGB CONC 32.4 g/dl (32.0-37.0); MEAN CORPUSCULAR VOLUME 87.9 fl (82.0-101.0); MEAN PLATELET VOLUME 9.3 fl (7.4-10.4); MONOCYTE # 0.7 10^3/ul (0.3-0.9); MONOCYTES % 8.7 % (0.0-11.0); NEUTROPHIL # 5.2 10^3/ul (1.6-7.5); NEUTROPHILS % 65.5 % (39.0-77.0); PLATELET COUNT 270 10^3/UL (140-415); RED BLOOD COUNT 2.98 10^6/ul (4.70-6.10); RED CELL DISTRIBUTION WIDTH 15.5 % (11.5-14.5); WHITE BLOOD COUNT 7.9 10^3/ul (4.8-10.8)
[2017-01-24 06:00] LABS: CALCIUM 8.8 mg/dl (8.4-10.2); CREATININE 0.56 mg/dl (0.61-1.24); POTASSIUM 4.2 mmol/L (3.5-5.1)
[2017-01-24 08:11] VITALS: BP 117/56; RESP 18
[2017-01-24] MEDS: MULTIVITAMINS 30 ML CUP GTB SCH (08:47)
[2017-01-24] MEDS: ZINC SULFATE 220 MG CAP GTB SCH (08:47)
[2017-01-24] MEDS: DOCUSATE SODIUM 10 MG/ML (10ML CUP) NGT SCH (08:47)
[2017-01-24] MEDS: CALCIUM/VITAMIN D (500/200) TAB NGT SCH (08:47)
[2017-01-24] MEDS: FOLIC ACID 1 MG TAB NGT SCH (08:47)
[2017-01-24] MEDS: ASCORBIC ACID 500 MG TAB NGT SCH (08:47)
[2017-01-24] MEDS: BALSAM PERU/CASTOR OIL 60 GM TUBE TOP SCH ×2 (08:48→21:08)
[2017-01-24] MEDS: ENOXAPARIN 30 MG/0.3 ML SYG SC SCH (08:55)
[2017-01-24] MEDS ORDERED: ASCORBIC ACID 500 MG TAB GTB SCH (09:00)
[2017-01-24 13:53] VITALS: BP 125/61; RESP 18
--- NOTE | 2017-01-24 15:09 | PN ---
DATE: 01/24/2017 SUBJECTIVE DATA: The patient is more awake and responsive. OBJECTIVE DATA: VITAL SIGNS: Temperature 98.6, blood pressure 117/56. CHEST: Clinically clear. HEART: S1, S2. No rubs or gallops. EXTREMITIES: No edema. The right foot wounds unchanged. LABORATORY: WBC count 7.9, hematocrit 26.2, platelets 270,000. BUN 22, creatinine 0.56, potassium 5 4.2. IMPRESSION: 1. Multiple necrotic ulcers right foot, secondary to peripheral artery disease. 2. Chronic obstructive lung disease. 3. Status post-right hemiparesis. 4. Chronic right shoulder dislocation. 5. Neurogenic dysphagia, on G-tube feedings. 6. Coronary artery disease. 7. Hypertension. PLAN: Discussed again with the patient's daughter, who states that she will talk to Dr. Romo, and make that decision. She is leaning towards amputation. Left message at Dr. Romo's office to discuss regarding surgery. Dictated By: Santo Mckeon MD /[email or web address]/gabriel /Document#: [id number]
[2017-01-24] MEDS: VANCOMYCIN 750 MG in SOD CHLORIDE 0.9% 150 ML IVPB SCH (16:03)
[2017-01-24 20:28] VITALS: BP 133/58; RESP 18
--- NOTE | 2017-01-24 20:31 | PN ---
Date/Time of Note Date/Time of Note DATE: 01/24/17 TIME: 20:30 Assessment/Plan Lines/Catheters IV Catheter Type (from Nrsg): PICC Line Arnett in Place (from Nrsg): Yes Assessment/Plan Chief Complaint/Hosp Course A Additional Assessment/Plan Patient is nonambulatory at this time and contracted Patient has abnormal arterial studies indicative of possible aortobiiliac disease patient will need an amputation 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 Patient would need above knee amputations based on the superficial femoral artery occlusions We will discuss with the referring physicians We will proceed with the amputation when family is agreeable I spoke with the daughter different options were explained to her amputation as the first option because of the patient nonambulatory status with stress she will think about the operation and let us know her decision The daughter wants to speak with me again regarding possible amputation We will try to contact the daughter Problems: Subjective 24 Hr Interval Summary Constitutional: improved Pain Control: mild Exam/Review of Systems Vital Signs Vitals Vital Signs Date Time Temp Pulse Resp B/P Pulse Ox O2 Delivery O2 Flow Rate FiO2 01/24/17 20:28 99.0 78 18 133/58 98 01/24/17 19:29 21 01/24/17 08:40 Nasal Cannula 2.0 Intake and Output 01/23/17 01/23/17 01/24/17 15:00 23:00 07:00 Intake Total 950 ml 800 ml Output Total 700 ml 600 ml Balance 250 ml 200 ml Exam Eyes: EOMI, nl conjunctiva, nl lids, nl sclera ENMT: mucosa pink and moist, nl external ears & nose, nl lips & teeth, nl nasal mucosa & septum Neck: non-tender, supple Respiratory: clear to auscultation, normal air movement Cardiovascular: nl pulses, regular rate and rhythm Results Result Diagram: 01/24/17 0458 01/24/17 0458 AMIRAH GALVEZ MD Jan 24, 2017 20:30
[2017-01-24] MEDS: MIRTAZAPINE 15 MG TAB NGT SCH (21:08)
[2017-01-25] MEDS: ALBUTEROL 0.083% (NEB) 2.5 MG/3 ML AMP HHN SCH ×4 (02:27→19:35)
[2017-01-25 02:32] VITALS: BP 120/58; RESP 18
[2017-01-25 08:47] VITALS: BP 117/59; RESP 18
[2017-01-25] MEDS: ASCORBIC ACID 500 MG TAB NGT SCH (09:10)
[2017-01-25] MEDS: CALCIUM/VITAMIN D (500/200) TAB NGT SCH (09:10)
[2017-01-25] MEDS: ZINC SULFATE 220 MG CAP GTB SCH (09:10)
[2017-01-25] MEDS: DOCUSATE SODIUM 10 MG/ML (10ML CUP) NGT SCH (09:10)
[2017-01-25] MEDS: MULTIVITAMINS 30 ML CUP GTB SCH (09:10)
[2017-01-25] MEDS: FOLIC ACID 1 MG TAB NGT SCH (09:10)
[2017-01-25] MEDS: BALSAM PERU/CASTOR OIL 60 GM TUBE TOP SCH ×2 (09:11→22:47)
[2017-01-25] MEDS: ENOXAPARIN 30 MG/0.3 ML SYG SC SCH (10:50)
[2017-01-25 14:17] VITALS: BP 107/47; RESP 16
[2017-01-25] MEDS: VANCOMYCIN 750 MG in SOD CHLORIDE 0.9% 150 ML IVPB SCH (15:06)
--- NOTE | 2017-01-25 16:54 | PN ---
Date/Time of Note Date/Time of Note DATE: 01/25/17 TIME: 16:52 Assessment/Plan Lines/Catheters IV Catheter Type (from Nrsg): PICC Line Arnett in Place (from Nrsg): Yes Assessment/Plan Chief Complaint/Hosp Course A Additional Assessment/Plan Patient is nonambulatory at this time and contracted Patient has abnormal arterial studies indicative of possible aortobiiliac disease patient will need an amputation 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 Patient would need above knee amputations based on the superficial femoral artery occlusions We will discuss with the referring physicians We will proceed with the amputation when family is agreeable I spoke with the daughter different options were explained to her amputation as the first option because of the patient nonambulatory status with stress she will think about the operation and let us know her decision The daughter wants to speak with me again regarding possible amputation Spoke with the daughter again Plan for Right AKA tomorrow Problems: Subjective 24 Hr Interval Summary Constitutional: improved Pain Control: mild Exam/Review of Systems Vital Signs Vitals Vital Signs Date Time Temp Pulse Resp B/P Pulse Ox O2 Delivery O2 Flow Rate FiO2 01/25/17 14:17 98.3 85 16 107/47 98 01/25/17 13:09 21 01/25/17 08:00 Nasal Cannula 2.0 Intake and Output 01/24/17 01/24/17 01/25/17 15:00 23:00 07:00 Intake Total 950 ml Output Total 650 ml 500 ml Balance 300 ml -500 ml Exam Neck: non-tender, supple Respiratory: clear to auscultation, normal air movement Cardiovascular: nl pulses, regular rate and rhythm Gastrointestinal: nl liver, spleen, non-tender, soft Results Result Diagram: 01/24/17 0458 01/24/17 0458 AMIRAH GALVEZ MD Jan 25, 2017 16:53
[2017-01-25 20:20] VITALS: BP 119/61; RESP 18
[2017-01-25] MEDS: MIRTAZAPINE 15 MG TAB NGT SCH (22:47)
[2017-01-25] MEDS ORDERED: ALTEPLASE (CATHFLO) 2 MG INJ CATHETER PRN (23:30)
[2017-01-26] VITALS (13 sets, daily range): BP systolic 116–150; BP diastolic 55–64; PULSE 60–88; RESP 14–75
[2017-01-26] MEDS: SOD CHLORIDE 0.45% 1,000 ML IV SCH ×2 (00:15→19:30)
[2017-01-26] MEDS: ALBUTEROL 0.083% (NEB) 2.5 MG/3 ML AMP HHN SCH ×4 (01:19→19:36)
[2017-01-26 06:31] LABS: BASOPHILS % 0.2 % (0.0-2.0); EOSINOPHILS # 0.3 10^3/ul (0.0-0.5); EOSINOPHILS % 2.9 % (0.0-7.0); HEMATOCRIT 25.7 % (42.0-52.0); HEMOGLOBIN 8.3 g/dl (14.0-18.0); LYMPHOCYTES # 1.7 10^3/ul (0.8-2.9); LYMPHOCYTES % 19.2 % (15.0-51.0); MEAN CORPUSCULAR HEMOGLOBIN 28.2 pg (29.0-33.0); MEAN CORPUSCULAR HGB CONC 32.3 g/dl (32.0-37.0); MEAN CORPUSCULAR VOLUME 87.4 fl (82.0-101.0); MEAN PLATELET VOLUME 9.5 fl (7.4-10.4); MONOCYTE # 0.8 10^3/ul (0.3-0.9); MONOCYTES % 9.3 % (0.0-11.0); NEUTROPHIL # 5.9 10^3/ul (1.6-7.5); PLATELET COUNT 271 10^3/UL (140-415); RED BLOOD COUNT 2.94 10^6/ul (4.70-6.10); RED CELL DISTRIBUTION WIDTH 15.6 % (11.5-14.5); WHITE BLOOD COUNT 8.9 10^3/ul (4.8-10.8)
[2017-01-26 06:37] LABS: INR 1.05; PROTIME 13.7 Sec (12.2-14.2); PT RATIO 1.1
[2017-01-26 06:46] LABS: CALCIUM 8.8 mg/dl (8.4-10.2); CREATININE 0.57 mg/dl (0.61-1.24); MAGNESIUM 1.7 mg/dl (1.7-2.5); POTASSIUM 4.1 mmol/L (3.5-5.1)
[2017-01-26] MEDS ORDERED: EPHEDrine SULFATE 50 MG/5 ML SYG ONE (07:00)
[2017-01-26] MEDS ORDERED: ACETAMINOPHEN 1000 MG/100 ML IVPB ONE (07:00)
[2017-01-26] MEDS: DOCUSATE SODIUM 10 MG/ML (10ML CUP) NGT SCH (09:00)
[2017-01-26] MEDS: FOLIC ACID 1 MG TAB NGT SCH (09:00)
[2017-01-26] MEDS: ASCORBIC ACID 500 MG TAB NGT SCH (09:00)
[2017-01-26] MEDS: CALCIUM/VITAMIN D (500/200) TAB NGT SCH (09:00)
[2017-01-26] MEDS: ZINC SULFATE 220 MG CAP GTB SCH (09:00)
[2017-01-26] MEDS: ENOXAPARIN 30 MG/0.3 ML SYG SC SCH (09:00)
[2017-01-26] MEDS: MULTIVITAMINS 30 ML CUP GTB SCH (09:00)
--- NOTE | 2017-01-26 09:47 | PN ---
DATE: 01/25/2017 SUBJECTIVE DATA: The patient is awake, more responsive. OBJECTIVE DATA: VITAL SIGNS: Temperature 99.3, blood pressure 117/59, pulse ox 100 percent on room air. HEENT: Head normocephalic. CHEST: Clinically clear. HEART: S1, S2. No definite gallops. EXTREMITIES: No edema. Erythema on the lateral aspect of the left foot. ASSESSMENT AND PLAN: 1. Multiple ulcers, right foot, secondary to peripheral arterial disease, infective methicillin-resistant Staphylococcus aureus. 2. Chronic obstructive lung disease. 3. Status post right hemiparesis. 4. Chronic right shoulder dislocation. 5. Neurogenic dysphagia, on gastrostomy-tube feeding. 6. Coronary artery disease, status post prior percutaneous transluminal coronary angioplasty. 7. Hypertension. Awaiting surgery per Dr. Romo who is in discussion with the patient's daughter, whose consent is being awaited. Dictated By: Santo Mckeon MD /[email or web address]/reny /Document#: [id number]
--- NOTE | 2017-01-26 11:29 | PN ---
Date/Time of Note Date/Time of Note DATE: 01/26/17 TIME: 11:28 Assessment/Plan Lines/Catheters IV Catheter Type (from Nrs): PICC Line Arnett in Place (from Nrsg): Yes Assessment/Plan Chief Complaint/Hosp Course A Additional Assessment/Plan Patient is nonambulatory at this time and contracted Patient has abnormal arterial studies indicative of possible aortobiiliac disease patient will need an amputation 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 Patient would need above knee amputations based on the superficial femoral artery occlusions We will discuss with the referring physicians We will proceed with the amputation when family is agreeable I spoke with the daughter different options were explained to her amputation as the first option because of the patient nonambulatory status with stress she will think about the operation and let us know her decision The daughter wants to speak with me again regarding possible amputation Spoke with the daughter again Surgery cancelled again per the daughter Problems: Subjective 24 Hr Interval Summary Constitutional: improved Pain Control: mild Exam/Review of Systems Vital Signs Vitals Vital Signs Date Time Temp Pulse Resp B/P Pulse Ox O2 Delivery O2 Flow Rate FiO2 01/26/17 08:09 98.3 81 75 120/56 98 01/26/17 07:53 21 01/25/17 08:00 Nasal Cannula 2.0 Intake and Output 01/25/17 01/25/17 01/26/17 15:00 23:00 07:00 Intake Total 150 ml 250 ml Output Total 500 ml 652 ml Balance -350 ml -402 ml Exam ENMT: mucosa pink and moist, nl external ears & nose, nl lips & teeth, nl nasal mucosa & septum Neck: non-tender, supple Respiratory: clear to auscultation, normal air movement Cardiovascular: nl pulses, regular rate and rhythm Gastrointestinal: nl liver, spleen, non-tender, soft Results Result Diagram: 01/26/17 0540 01/26/17 0540 AMIRAH GALVEZ MD Jan 26, 2017 11:29
[2017-01-26] MEDS ORDERED: MAGNESIUM SULFATE 3 GM in SOD CHLORIDE 0.9% 100 ML IVPB ONE (14:00)
[2017-01-26] MEDS: VANCOMYCIN 750 MG in SOD CHLORIDE 0.9% 150 ML IVPB SCH (14:04)
--- NOTE | 2017-01-26 14:37 | PN ---
DATE: 01/26/2017 SUBJECTIVE DATA: The patient is more responsive. Presently comfortable. OBJECTIVE DATA: VITAL SIGNS: Temperature 98.3, blood pressure 120/56, O2 saturation 98 percent on room air. HEENT: Head normocephalic. CHEST: Chest clinically clear. CARDIAC: Heart S1, S2. No rubs or gallops. EXTREMITIES: Right foot ulcer is unchanged. LABORATORY: WBC 28.9, hematocrit 25.7, platelet count 271,000. Sodium 139, potassium 4.1, BUN 19, creatinine 0.57, magnesium 1.7. The PT INR is 1.05. ASSESSMENT AND PLAN: I discussed patient's condition and need for surgery with the patient's daughter, Krystyna. I had obtained the notes from the authorization given to talk to her from her sister, Laure, and there was some confusion about surgery to be cancer per patient's daughter. I discussed with the patient's daughter, Krystyna. It was agreed that the patient would undergo surgery I and left a message for Dr. Romo. Dictated By: Santo Mckeon MD /marycruz/ /Document#: [id number]
[2017-01-26] MEDS: BALSAM PERU/CASTOR OIL 60 GM TUBE TOP SCH ×2 (15:41→21:00)
[2017-01-26] MEDS ORDERED: BACITRACIN/POLYMYXIN 28.35 GM OINT TOP ONE (20:52)
[2017-01-26] MEDS ORDERED: NEOMYC/POLYMYX/BACIT 30 GM OINT ONE (20:53)
[2017-01-26] MEDS: MIRTAZAPINE 15 MG TAB NGT SCH (21:00)
[2017-01-26] MEDS ORDERED: PROPOFOL 20 ML ONE (21:39)
[2017-01-26] MEDS ORDERED: FENTAnyl 50 MCG/ML VIAL ONE (21:39)
[2017-01-26] MEDS ORDERED: PHENYLephrine (100 MCG/ML) 5ML SYG ONE (21:39)
[2017-01-26] MEDS ORDERED: DEXAMETHASONE 4 MG/ML 1 ML INJ ONE (22:05)
[2017-01-26] MEDS ORDERED: ONDANSETRON 4 MG INJ ONE (22:05)
[2017-01-26] MEDS ORDERED: FAMOTIDINE 20 MG INJ ONE (22:05)
[2017-01-26] MEDS ORDERED: METOPROLOL 5 MG INJ ONE (22:06)
[2017-01-26] MEDS ORDERED: ALBUMIN HUMAN 5% 250 ML ONE (22:09)
--- NOTE | 2017-01-26 22:27 | OPR ---
Date/Time of Note Date/Time of Note DATE: 01/26/17 TIME: 22:25 Operative Report Procedure Date: Jan 26, 2017 Preoperative Diagnosis Gangrenous right foot Postoperative Diagnosis Gangrenous right foot Operation Performed Right above-knee amputation Surgeon: AMIRAH GALVEZ MD Anesthesia Type: general Estimated Blood Loss: 0 - 10 ml's Transfusion Required: no Specimen: none Grafts/Implants: none Complications: no Pt Condition Post Procedure: stable Disposition: PACU Operative\Procedure Findings Patient was taken to the operating room after induction of general anesthesia prepped and draped in usual sterile fashion timeout was called I start A curvilinear incision was made in a [place] appearance 10 cm above the right knee Incision was taken down to subcutaneous tissue which was then opened using electrocautery The femoral artery femoral nerve femoral vein and saphenous vein were doubly ligated using 0 Vicryl suture The quadriceps muscles were incised using electrocautery Posterior thigh muscles were incised using electrocautery The femoral bone was dissected 4 cm proximal to skin incision The femoral bone was transected using the saw The wound was irrigated using antibiotic solution No evidence of any bleeding was noted The deep fascia was closed using 0 Vicryl suture in interrupted fashion The skin was irrigated again and closed using carolyn Wrapping was done Patient tolerated procedure AMIRAH GALVEZ MD Jan 26, 2017 22:27
[2017-01-26] MEDS ORDERED: ALBUTEROL 0.083% (NEB) 2.5 MG/3 ML AMP HHN PRN (22:30)
[2017-01-26] MEDS ORDERED: morphine (1 MG/ML) 10ML SYRINGE IV PRN ×2 (22:30)
[2017-01-26] MEDS ORDERED: FENTAnyl 50 MCG/ML VIAL IV PRN ×2 (22:30)
[2017-01-26] MEDS ORDERED: LABETALOL HCL 20MG INJ IV PRN (22:30)
[2017-01-26] MEDS ORDERED: ALBUMIN HUMAN 5% 250 ML IV PRN (22:30)
[2017-01-26] MEDS ORDERED: ONDANSETRON 4 MG INJ IV PRN (22:30)
[2017-01-26] MEDS ORDERED: EPHEDrine SULFATE 50 MG/5 ML SYG IV PRN (22:30)
[2017-01-26] MEDS ORDERED: DIPHENHYDRAMINE 50 MG INJ IV PRN (22:30)
[2017-01-26] MEDS ORDERED: hydrALAzine 20 MG INJ IV PRN (22:30)
[2017-01-27] VITALS (13 sets, daily range): BP systolic 125–157; BP diastolic 58–68; PULSE 66–98; RESP 16–19
[2017-01-27] MEDS: SOD CHLORIDE 0.45% 1,000 ML IV SCH ×2 (00:46→15:30)
[2017-01-27] MEDS: ALBUTEROL 0.083% (NEB) 2.5 MG/3 ML AMP HHN SCH ×4 (02:25→19:45)
[2017-01-27] MEDS: ASCORBIC ACID 500 MG TAB NGT SCH (08:37)
[2017-01-27] MEDS: CALCIUM/VITAMIN D (500/200) TAB NGT SCH (08:37)
[2017-01-27] MEDS: BALSAM PERU/CASTOR OIL 60 GM TUBE TOP SCH ×2 (08:37→21:13)
[2017-01-27] MEDS: ZINC SULFATE 220 MG CAP GTB SCH (08:37)
[2017-01-27] MEDS: DOCUSATE SODIUM 10 MG/ML (10ML CUP) NGT SCH (08:37)
[2017-01-27] MEDS: FOLIC ACID 1 MG TAB NGT SCH (08:37)
[2017-01-27] MEDS: ENOXAPARIN 30 MG/0.3 ML SYG SC SCH (08:38)
[2017-01-27] MEDS: MULTIVITAMINS 30 ML CUP GTB SCH (08:38)
[2017-01-27 12:38] LABS: BASOPHILS % 0.1 % (0.0-2.0); HEMATOCRIT 23.7 % (42.0-52.0); HEMOGLOBIN 7.8 g/dl (14.0-18.0); LYMPHOCYTES # 0.7 10^3/ul (0.8-2.9); LYMPHOCYTES % 6.7 % (15.0-51.0); MEAN CORPUSCULAR HEMOGLOBIN 28.8 pg (29.0-33.0); MEAN CORPUSCULAR HGB CONC 32.9 g/dl (32.0-37.0); MEAN CORPUSCULAR VOLUME 87.5 fl (82.0-101.0); MEAN PLATELET VOLUME 9.3 fl (7.4-10.4); MONOCYTE # 0.5 10^3/ul (0.3-0.9); MONOCYTES % 5.2 % (0.0-11.0); NEUTROPHIL # 8.8 10^3/ul (1.6-7.5); NEUTROPHILS % 86.8 % (39.0-77.0); PLATELET COUNT 256 10^3/UL (140-415); RED BLOOD COUNT 2.71 10^6/ul (4.70-6.10); RED CELL DISTRIBUTION WIDTH 15.5 % (11.5-14.5); WHITE BLOOD COUNT 10.1 10^3/ul (4.8-10.8)
[2017-01-27 12:55] LABS: CREATININE 0.57 mg/dl (0.61-1.24); MAGNESIUM 2.1 mg/dl (1.7-2.5); POTASSIUM 4.2 mmol/L (3.5-5.1)
[2017-01-27] MEDS: VANCOMYCIN 750 MG in SOD CHLORIDE 0.9% 150 ML IVPB SCH (15:25)
[2017-01-27] MEDS ORDERED: SOD CHLORIDE 0.9% 250 ML IV* ONE (15:42)
[2017-01-27] MEDS: MIRTAZAPINE 15 MG TAB NGT SCH (21:13)
[2017-01-28] VITALS (9 sets, daily range): BP systolic 114–142; BP diastolic 57–63; PULSE 58–72; RESP 15–18
[2017-01-28] MEDS: ALBUTEROL 0.083% (NEB) 2.5 MG/3 ML AMP HHN SCH ×4 (01:02→20:11)
[2017-01-28] MEDS: SOD CHLORIDE 0.45% 1,000 ML IV SCH ×2 (02:13→11:30)
[2017-01-28] MEDS: morphine 4 MG/ML VIAL IV PRN ×2 (03:11→18:24)
--- NOTE | 2017-01-28 06:32 | PN ---
DATE: 01/27/2017 SUBJECTIVE DATA: The patient is very lethargic, appears comfortable status post right above-knee amputation. OBJECTIVE DATA: VITAL SIGNS: Temperature 98.6 degrees, blood pressure 114/67, O2 saturation 96 percent. CHEST: Clinically clear. HEART: S1, S2. No gallops. EXTREMITIES: Status post right above-knee amputation. LABORATORY AND DIAGNOSTIC DATA: Hematocrit is 23.7, hemoglobin 7.8. Sodium 136, potassium 4.2, BUN 20, creatinine 0.57, random glucose is 243. IMPRESSION: 1. Necrotic ulcers secondary to peripheral artery disease, right foot status post above-knee amputation. 2. Postoperative hyperglycemia, probably stress induced. 3. Status post cerebrovascular accident with right hemiparesis. 4. Chronic right shoulder dislocation. 5. Coronary artery disease. 6. Hypertension. PLAN: Will type and cross for one unit of packed cells, transfuse one unit. Obtain hemoglobin A1c level. Closely monitor hemoglobin and hematocrit, and replace RBC losses accordingly. Will initiate discharge planning to a convalescent home. Will discuss with systems requirements planner. Dictated By: Santo Mckeon MD /[email or web address]/meeta /Document#: [id number]
[2017-01-28 08:11] LABS: BASOPHILS % 0.1 % (0.0-2.0); EOSINOPHILS % 0.1 % (0.0-7.0); HEMATOCRIT 24.5 % (42.0-52.0); HEMOGLOBIN 8.1 g/dl (14.0-18.0); LYMPHOCYTES # 1.3 10^3/ul (0.8-2.9); MEAN CORPUSCULAR HEMOGLOBIN 28.7 pg (29.0-33.0); MEAN CORPUSCULAR HGB CONC 33.1 g/dl (32.0-37.0); MEAN CORPUSCULAR VOLUME 86.9 fl (82.0-101.0); MEAN PLATELET VOLUME 9.6 fl (7.4-10.4); MONOCYTE # 0.8 10^3/ul (0.3-0.9); MONOCYTES % 8.4 % (0.0-11.0); NEUTROPHIL # 6.8 10^3/ul (1.6-7.5); NEUTROPHILS % 76.3 % (39.0-77.0); PLATELET COUNT 218 10^3/UL (140-415); RED BLOOD COUNT 2.82 10^6/ul (4.70-6.10); RED CELL DISTRIBUTION WIDTH 14.9 % (11.5-14.5)
[2017-01-28 08:47] LABS: CALCIUM 8.1 mg/dl (8.4-10.2); CREATININE 0.53 mg/dl (0.61-1.24); POTASSIUM 4.2 mmol/L (3.5-5.1)
[2017-01-28] MEDS: BALSAM PERU/CASTOR OIL 60 GM TUBE TOP SCH ×2 (09:05→20:47)
[2017-01-28] MEDS: DOCUSATE SODIUM 10 MG/ML (10ML CUP) NGT SCH (09:05)
[2017-01-28] MEDS: MULTIVITAMINS 30 ML CUP GTB SCH (09:05)
[2017-01-28] MEDS: FOLIC ACID 1 MG TAB NGT SCH (09:05)
[2017-01-28] MEDS: ASCORBIC ACID 500 MG TAB NGT SCH (09:05)
[2017-01-28] MEDS: CALCIUM/VITAMIN D (500/200) TAB NGT SCH (09:05)
[2017-01-28] MEDS: ZINC SULFATE 220 MG CAP GTB SCH (09:05)
[2017-01-28] MEDS: ENOXAPARIN 30 MG/0.3 ML SYG SC SCH (09:07)
--- NOTE | 2017-01-28 10:20 | PN ---
DATE: 01/28/2017 SUBJECTIVE DATA: The patient is lethargic, tolerating G-tube feedings well. OBJECTIVE DATA: VITAL SIGNS: Temperature 98.1, blood pressure 130/57, O2 sat 95 percent on room air. HEENT: Head normocephalic. Moderate pallor without cyanosis. CHEST: Clear anteriorly. HEART: S1, S2 with definite gallops. EXTREMITIES: Right above-knee amputation. Left foot: No edema. Left lateral malleolus discoloration secondary to PAD noted. LABORATORY: Sodium 139, potassium 4.2, BUN 22, creatinine 0.53, hematocrit 24.5, platelet count 218,000. PLAN: Given the patient's multiple comorbid factors including COPD and coronary artery disease, we will give 1 unit of packed cells and repeat CBC, BMP in the morning. We will also transfer patient to med/surg. We will hold Lovenox. Monitor for any signs of bleeding. Initiate discharge planning. We will discuss discharge planning. Dictated By: Santo Mckeon MD /[email or web address]/lewis /Document#: [id number]
[2017-01-28] MEDS: MIRTAZAPINE 15 MG TAB NGT SCH (20:47)
[2017-01-29] MEDS: SOD CHLORIDE 0.45% 1,000 ML IV SCH ×2 (00:05→07:30)
[2017-01-29] MEDS: morphine 4 MG/ML VIAL IV PRN (00:16)
[2017-01-29] MEDS: ALBUTEROL 0.083% (NEB) 2.5 MG/3 ML AMP HHN SCH ×4 (01:54→19:44)
[2017-01-29 03:06] VITALS: BP 122/58; RESP 18
[2017-01-29 06:32] LABS: BASOPHILS % 0.3 % (0.0-2.0); EOSINOPHILS # 0.2 10^3/ul (0.0-0.5); EOSINOPHILS % 1.7 % (0.0-7.0); HEMATOCRIT 29.2 % (42.0-52.0); HEMOGLOBIN 9.6 g/dl (14.0-18.0); LYMPHOCYTES # 1.4 10^3/ul (0.8-2.9); LYMPHOCYTES % 15.9 % (15.0-51.0); MEAN CORPUSCULAR HEMOGLOBIN 28.6 pg (29.0-33.0); MEAN CORPUSCULAR HGB CONC 32.9 g/dl (32.0-37.0); MEAN CORPUSCULAR VOLUME 86.9 fl (82.0-101.0); MEAN PLATELET VOLUME 9.6 fl (7.4-10.4); MONOCYTE # 0.9 10^3/ul (0.3-0.9); MONOCYTES % 9.5 % (0.0-11.0); NEUTROPHIL # 6.5 10^3/ul (1.6-7.5); NEUTROPHILS % 71.6 % (39.0-77.0); PLATELET COUNT 184 10^3/UL (140-415); RED BLOOD COUNT 3.36 10^6/ul (4.70-6.10); WHITE BLOOD COUNT 9.1 10^3/ul (4.8-10.8)
[2017-01-29 06:55] LABS: CALCIUM 8.1 mg/dl (8.4-10.2); CREATININE 0.47 mg/dl (0.61-1.24); POTASSIUM 4.4 mmol/L (3.5-5.1)
[2017-01-29 08:04] VITALS: BP 134/65; RESP 18
[2017-01-29] MEDS: ASCORBIC ACID 500 MG TAB NGT SCH (09:09)
[2017-01-29] MEDS: MULTIVITAMINS 30 ML CUP GTB SCH (09:09)
[2017-01-29] MEDS: DOCUSATE SODIUM 10 MG/ML (10ML CUP) NGT SCH (09:09)
[2017-01-29] MEDS: CALCIUM/VITAMIN D (500/200) TAB NGT SCH (09:09)
[2017-01-29] MEDS: ZINC SULFATE 220 MG CAP GTB SCH (09:09)
[2017-01-29] MEDS: FOLIC ACID 1 MG TAB NGT SCH (09:09)
[2017-01-29] MEDS: BALSAM PERU/CASTOR OIL 60 GM TUBE TOP SCH ×2 (09:10→22:12)
--- NOTE | 2017-01-29 11:01 | PN ---
Date/Time of Note Date/Time of Note DATE: 01/29/17 TIME: 11:00 Assessment/Plan Lines/Catheters IV Catheter Type (from Nrsg): PICC Line Arnett in Place (from Nrsg): Yes Assessment/Plan Chief Complaint/Hosp Course Problems: Assessment/Plan Status post right lower extremity amputation Patient may be discharged to home or to a [facility] facility We will keep the carolyn for 3 week Subjective 24 Hr Interval Summary Constitutional: improved Pain Control: mild Exam/Review of Systems Vital Signs Vitals Vital Signs Date Time Temp Pulse Resp B/P Pulse Ox O2 Delivery O2 Flow Rate FiO2 01/29/17 08:04 98.0 75 18 134/65 97 01/29/17 07:09 21 01/26/17 23:13 Room Air 01/25/17 08:00 2.0 Intake and Output 01/28/17 01/28/17 01/29/17 15:00 23:00 07:00 Intake Total 230 ml 1400 ml 250 ml Output Total 850 ml 650 ml 1650 ml Balance -620 ml 750 ml -1400 ml Exam ENMT: mucosa pink and moist, nl external ears & nose, nl lips & teeth, nl nasal mucosa & septum Neck: non-tender, supple Respiratory: clear to auscultation, normal air movement Cardiovascular: nl pulses, regular rate and rhythm Gastrointestinal: nl liver, spleen, non-tender, soft Results Result Diagram: 01/29/17 0557 01/29/17 0554 AMIRAH GALVEZ MD Jan 29, 2017 11:01
[2017-01-29 13:57] VITALS: BP 124/58; RESP 18
--- NOTE | 2017-01-29 18:43 | PN ---
DATE: 01/29/2017 SUBJECTIVE: The patient is awake, alert, nonverbal. OBJECTIVE DATA: VITAL SIGNS: Temperature 99.2, blood pressure 124/58, and O2 sat 98 percent on room air. HEENT: Head normocephalic. Mild pallor with cyanosis. CHEST: Clinically clear. HEART: S1, S2. No definite gallops. EXTREMITIES: Right above-knee amputation, the wound wrapped. Left lower extremity without edema. Left lateral malleolus discoloration unchanged. LABORATORY: WBC count 9.1, hematocrit 29.2, and platelet count is 184,000. Sodium 139, potassium 4.4, and hemoglobin A1c 5.9. IMPRESSION: 1. Right foot necrotic ulcers secondary to peripheral artery disease, status post right above-knee amputation. 2. Chronic obstructive pulmonary disease. 3. Status post right hemiparesis. 4. Chronic right shoulder dislocation. 5. Neurogenic dysphagia on G-tube feeding. 6. Coronary artery disease, status post prior percutaneous transluminal coronary angioplasty (PTCA). 7. Hypertension. 8. History of abdominal aortic aneurysm. 9. Prediabetes. PLAN: Dr. Romo's recommendations noted of today about the patient could be discharged to [facility] facility. We will discharge the patient to SNF as soon as placement is found. Dictated By: Santo Mckeon MD /[email or web address]/shreya /Document#: [id number]
[2017-01-29 20:26] VITALS: BP 148/65; RESP 18
[2017-01-29] MEDS: MIRTAZAPINE 15 MG TAB NGT SCH (22:12)
[2017-01-30] MEDS: ALBUTEROL 0.083% (NEB) 2.5 MG/3 ML AMP HHN SCH ×4 (01:40→20:16)
[2017-01-30 01:55] VITALS: BP 132/73; RESP 18
[2017-01-30 08:13] VITALS: BP 177/76; RESP 18
[2017-01-30] MEDS: MULTIVITAMINS 30 ML CUP GTB SCH (09:51)
[2017-01-30] MEDS: ASCORBIC ACID 500 MG TAB NGT SCH (09:51)
[2017-01-30] MEDS: CALCIUM/VITAMIN D (500/200) TAB NGT SCH (09:51)
[2017-01-30] MEDS: DOCUSATE SODIUM 10 MG/ML (10ML CUP) NGT SCH (09:51)
[2017-01-30] MEDS: FOLIC ACID 1 MG TAB NGT SCH (09:52)
[2017-01-30] MEDS: ZINC SULFATE 220 MG CAP GTB SCH (09:52)
[2017-01-30] MEDS: BALSAM PERU/CASTOR OIL 60 GM TUBE TOP SCH ×2 (09:52→21:44)
--- NOTE | 2017-01-30 13:18 | PN ---
DATE: 01/30/2017 SUBJECTIVE: The patient is awake, asymptomatic. OBJECTIVE DATA: GENERAL: Patient is in no acute distress. VITAL SIGNS: Temperature 99.1, blood pressure 177/76, respiratory 20 per minute, O2 sats 91 percent on room air. HEENT: Mild pallor without cyanosis. CHEST: Clear. HEART: S1, S2. No definite gallops. EXTREMITIES: Right below-knee amputation stump is healing well. No bleeding noted. IMPRESSION: 1. Status post right above-knee amputation for necrotic foot ulcers. 2. Chronic obstructive pulmonary disease. 3. Status post right hemiparesis. 4. Chronic right shoulder dislocation. 5. Neurogenic dysphagia, on gastric tube feedings. 6. Coronary artery disease status post coronary artery angioplasty x ?. 7. Hypertension. 8. History of abdominal aortic aneurysm. 9. Prediabetes PLAN: Discussed with Case Management. SNF placement in progress. Dictated By: Santo Mckeon MD /[email or web address]/remi /Document#: [id number]
[2017-01-30 14:32] VITALS: BP 131/62; RESP 18
[2017-01-30 20:05] VITALS: BP 131/73; RESP 18
[2017-01-30] MEDS: MIRTAZAPINE 15 MG TAB NGT SCH (21:43)
[2017-01-31] MEDS: ALBUTEROL 0.083% (NEB) 2.5 MG/3 ML AMP HHN SCH ×3 (01:16→14:10)
[2017-01-31 02:00] VITALS: BP 128/73; RESP 18
[2017-01-31 07:42] VITALS: BP 132/66; RESP 18
[2017-01-31] MEDS: MULTIVITAMINS 30 ML CUP GTB SCH (09:26)
[2017-01-31] MEDS: ASCORBIC ACID 500 MG TAB NGT SCH (09:26)
[2017-01-31] MEDS: BALSAM PERU/CASTOR OIL 60 GM TUBE TOP SCH (09:26)
[2017-01-31] MEDS: DOCUSATE SODIUM 10 MG/ML (10ML CUP) NGT SCH (09:26)
[2017-01-31] MEDS: ZINC SULFATE 220 MG CAP GTB SCH (09:26)
[2017-01-31] MEDS: FOLIC ACID 1 MG TAB NGT SCH (09:26)
[2017-01-31] MEDS: CALCIUM/VITAMIN D (500/200) TAB NGT SCH (09:26)
[2017-01-31 13:27] VITALS: BP 140/78; RESP 18
[2017-01-31 15:20] LABS: BASOPHIL # 0.1 10^3/ul (0.0-0.1); BASOPHILS % 0.4 % (0.0-2.0); EOSINOPHILS # 0.3 10^3/ul (0.0-0.5); EOSINOPHILS % 2.9 % (0.0-7.0); HEMATOCRIT 34.4 % (42.0-52.0); HEMOGLOBIN 11.3 g/dl (14.0-18.0); LYMPHOCYTES # 2.1 10^3/ul (0.8-2.9); LYMPHOCYTES % 17.8 % (15.0-51.0); MEAN CORPUSCULAR HEMOGLOBIN 28.6 pg (29.0-33.0); MEAN CORPUSCULAR HGB CONC 32.8 g/dl (32.0-37.0); MEAN CORPUSCULAR VOLUME 87.1 fl (82.0-101.0); MEAN PLATELET VOLUME 9.6 fl (7.4-10.4); MONOCYTE # 0.8 10^3/ul (0.3-0.9); MONOCYTES % 7.2 % (0.0-11.0); PLATELET COUNT 210 10^3/UL (140-415); RED BLOOD COUNT 3.95 10^6/ul (4.70-6.10); RED CELL DISTRIBUTION WIDTH 14.8 % (11.5-14.5); WHITE BLOOD COUNT 11.5 10^3/ul (4.8-10.8)
[2017-01-31 15:40] LABS: CALCIUM 8.9 mg/dl (8.4-10.2); CREATININE 0.55 mg/dl (0.61-1.24)
--- NOTE | 2017-01-31 22:30 | PN ---
DATE: 01/31/2017 SUBJECTIVE: The patient is awake, alert, noncommunicative. OBJECTIVE DATA: VITAL SIGNS: Temperature 98.5, blood pressure 140/78, O2 sat 96 percent on room air. CHEST: Clinically clear. HEART: S1, S2. No definite gallops. EXTREMITIES: No edema on the left. IMPRESSION: 1. Status post right above-knee amputation for ulcers secondary to peripheral artery disease. 2. Chronic obstructive pulmonary disease. 3. Status post right hemiparesis. 4. Chronic right shoulder dislocation. 5. Neurogenic dysphagia on G-tube feedings. 6. Coronary artery disease, status post percutaneous transluminal coronary angioplasty 7. Hypertension. 8. History of abdominal aortic aneurysm. 9. Prediabetes. PLAN: Awaiting placement at convalescent home. Will recheck labs today. Dictated By: Santo Mckeon MD /[email or web address]/rosemary /Document#: [id number]
== END 2017-01-31 17:20 | DRG 240 ==
LOC: E/R 10:06 → MS2 10:36 → MS4 01-26 23:35 → MS2 01-29 02:40
PROVIDERS: ADMIT Internal Medicine; ATTEND Internal Medicine
PROC: 02HV33Z Insertion of Infusion Device into Superior Vena Cava, Percutaneous Approach (ICD-10-PCS; 2017-01-03)
PROC: 30233N1 Transfusion of Nonautologous Red Blood Cells into Peripheral Vein, Percutaneous Approach (ICD-10-PCS; 2017-01-12)
PROC: 0Y6C0Z2 Detachment at Right Upper Leg, Mid, Open Approach (ICD-10-PCS; principal; 2017-01-26 18:30)
DX: I70.261 Atherosclerosis of native arteries of extremities with gangrene, right leg (principal); I69.351 Hemiplegia and hemiparesis following cerebral infarction affecting right dominant side; F03.90 Unspecified dementia, unspecified severity, without behavioral disturbance, psychotic disturbance, mood disturbance, and anxiety; L97.419 Non-pressure chronic ulcer of right heel and midfoot with unspecified severity; L03.115 Cellulitis of right lower limb; J44.9 Chronic obstructive pulmonary disease, unspecified; I10 Essential (primary) hypertension; Z95.5 Presence of coronary angioplasty implant and graft; Z87.891 Personal history of nicotine dependence; B95.62 Methicillin resistant Staphylococcus aureus infection as the cause of diseases classified elsewhere; R13.19 Other dysphagia; I70.202 Unspecified atherosclerosis of native arteries of extremities, left leg; M24.411 Recurrent dislocation, right shoulder; R73.9 Hyperglycemia, unspecified
CPT/HCPCS: 36415; 36430; 36569; 71010; 73630; 75635; 76937; 80048; 80053; 80061; 80202; 81001; 82040; 82565; 83036; 83605; 83735; 84436; 84443; 84484; 84520; 85025; 85610; 85730; 86850; 86900; 86901; 86920; 87040; 87070; 87081; 87086; 88305; 92526; 92610; 93005; 93922; 94640; 94664; 96374; 96375; J1940; J0131; J0690; J0696; J1100; J1335; J1650; J2270; J2370; J2405; J3010; J3370; J3475; J3480; J7030; J7040; J7042; P9016; P9045; Q9967